=== PATIENT | female | born 1980 | race Caucasian/White ===

== ENCOUNTER → 2016-10-13 | Outpatient (CLI) | payer OTHER ==
[~2016-10-13] MED LIST: IBUP80TA PO; PERCOCET PO
--- NOTE | 2016-10-15 23:54 | ECWPNPC ---
PATIENT NAME: KECIA MASON : 1980 GENDER: FEMALE VISIT DATE: 10/13/2016 DISCHARGE DATE: 10/13/16 1347 VISIT LOCKED DATE TIME: PHYSICIAN: VERNELL GASTELUM RESOURCE: VERNELL GASTELUM REASON FOR APPOINTMENT 1. BACK PAIN HISTORY OF PRESENT ILLNESS FALL RISK SCREENING: SCREENING :NO FALLS IN THE PAST YEAR 35 YEAR OLD FEMALE PATIENT WITH HISTORY OF CHRONIC BACK PAIN. PATIENT DESCRIBES THE PAIN BURNING, SHARP, TENDER, AND HAVING IT ALL TIME WITH A PAIN SCORE OF 6/10. PATIENT STATES THE PAIN ORIGINALLY STARTED IN HER SHINS AND WITHIN THE NEXT TWO YEARS TRAVELLED TO HER LOWER BACK. PATIENT HAS SEEN MULTIPLE SURGEONS, TRIED INJECTIONS, PHYSICAL THERAPY, AND HAS BEEN TO THE [facility]. PATIENT WAS TESTED FOR MS AND WAS TOLD SHE HAS NO LESIONS ON HER BRAIN AT THIS TIME. PATIENT IS CURRENTLY USING TYLENOL TO AID IN PAIN RELIEF WHICH SHE STATES DOES NOT HELP. MRS. MASON STATES THAT DEEP MASSAGES TEMPORARLY RELIEVE THE PAIN. PATIENT DENIES UNEXPLAINABLE WEIGHT LOSS, FEVER, CHILLS, NEW CHANGES ON HER URINARY OR BOWEL CONTROL. PAIN SCREENING: PATIENT HAS A COMPLAINT OF ACUTE OR CHRONIC PAIN YES CURRENT MEDICATIONS TAKING VENTOLIN HFA 108 (90 BASE) MCG/ACT AEROSOL SOLUTION 2 PUFFS NEEDED INHALATION EVERY 4 HRS TAKING ADDERALL XR 30 MG CAPSULE EXTENDED RELEASE 24 HOUR 1 CAPSULE IN THE MORNING ORALLY ONCE A DAY TAKING AMPHETAMINE-DEXTROAMPHET ER 20 MG CAPSULE EXTENDED RELEASE 24 HOUR 1 CAPSULE IN THE MORNING ORALLY ONCE A DAY IN AFTERNOON TAKING TYLENOL EXTRA STRENGTH 500 MG TABLET 2 TABLETS NEEDED ORALLY EVERY 6 HRS NOT-TAKING MULTIVITAMIN TABLET CHEWABLE ORALLY MEDICATION LIST REVIEWED AND RECONCILED WITH THE PATIENT PAST MEDICAL HISTORY ADHD - DIAGNOSED IN [facility] ASTHMA - [facility] BY [facility] GERD BEING FOLLOWED BY NEUROLOGY () FOR MS WORKUP - MRI C-SPINE (11/18) - NO ABNORMALITY. MRI BRAIN WITH AND WITHOUT - NEGATIVE STUDY. LOW BACK PAIN AND HIP PAIN - LUMBAR SPINE MRI (04/18) - NORMAL STUDY - NORMAL EMG-NCV. NEGATIVE INFLAMMATORY AND RHEUMATOID WORKUP. (NO CRP) KIDNEY STONE DDD ALLERGIES N.K.D.A. SURGICAL HISTORY C SECTION X 3 EGD 2011 COLPOSCOPY WITH AVELINO 09/11/14 LUMBAR SPINAL INJECTIONS FAMILY HISTORY FATHER: 57 YRS, DIAGNOSED WITH STROKE, OTHER MOTHER: ALIVE 58 YRS, DIAGNOSED WITH PSYCHIATRIC CONDITIONS, OTHER 1 SON(S) , 2 DAUGHTER(S) . DAD--MS, ANUERSYMMOM--HYPOTHYROID, DEPRESSIONOLDEST DAUGHTER--ASPERGERSSON--AUSTISM. SOCIAL HISTORY GENERAL: TOBACCO USE ARE YOU A:NONSMOKER BMI CARE GOAL FOLLOW-UP ABOVE NORMAL BMI FOLLOW-UPGIVING ENCOURAGEMENT TO EXERCISE, NUTRITION / FEEDING MANAGEMENT, WEIGHT MONITORING ALCOHOL SCREENING DID YOU HAVE A DRINK CONTAINING ALCOHOL IN THE PAST YEAR?YES HOW OFTEN DID YOU HAVE A DRINK CONTAINING ALCOHOL IN THE PAST YEAR?MONTHLY OR LESS (1 POINT) HOW MANY DRINKS DID YOU HAVE ON A TYPICAL DAY WHEN YOU WERE DRINKING IN THE PAST YEAR?1 OR 2 (0 POINTS) HOW OFTEN DID YOU HAVE SIX OR MORE DRINKS ON ONE OCCASION IN THE PAST YEAR?NEVER (0 POINTS) POINTS1 INTERPRETATIONNEGATIVE RECREATIONAL DRUG USE DRUG USE?NO CAFFEINE CAFFEINE USE?NO SEXUAL HX HAD SEX IN THE LAST 12 MONTHS (VAGINAL, ORAL, OR ANAL)?YES WITHMEN ONLY USE PROTECTION?NO HAVE YOU EVER HAD AN STD?NO 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 DIET: REGULAR. EXERCISE: NO REGULAR EXERCISE. MARITAL STATUS: . OTHERS AT HOME: SPOUSE, CHILDREN. PETS: 1 DOG. ORTHODOXY: NO MANDAEISM BELIEFS THAT WOULD IMPACT HEALTH CARE. LANGUAGE: CAMBODIAN. EDUCATION: COLLEGE GRAD. WORKING ON BACHELOR'S DEGREE ORIENTATION TO THE PAIN CLINIC AND PLAN OF CARE PROVIDED AND PATIENT VERBALIZED UNDERSTANDING. . LEARNING BARRIERS / SPECIAL NEEDS BARRIERS TO LEARNING?NO HEARING IMPAIRED?NO VISION IMPAIRED?YES :CORRECTIVE LENSES COGNITIVELY IMPAIRED?NO READINESS TO LEARN?YES LEARNING PREFERENCES?YES :DEMONSTRATION/VERBAL INSTRUCTION LEARNING CAPABILITIES PRESENT?NO EMOTIONAL BARRIERS?YES ADHD COMMENTSDOCUMENTED IN NOTES SECTION> SPECIAL DEVICES?NO PSYCHOLOGICAL HX TREATMENTYES HOW OFTEN AND HOW MUCH? NEEDED PAIN CLINIC PFS, CLERGY, PUBLIC HEALTH REFERRALS PFS REFERRAL NEEDED?NO CLERGY REFERRAL NEEDED?NO PUBLIC HEALTH REFERRAL NEEDED?NO ADVANCED DIRECTIVES HEALTH CARE PROXY?NO PRINTED INFORMATION ON HCP GIVEN TO PATIENT AND EXPLAINED. SHE VERBALIZED UNDERSTANDING POWER OF SALES UTILITY REPRESENTATIVE?NO TRAVEL OUTSIDE US: DENIES. HOUSING: HOUSE, LIVES WITH AND THREE CHILDREN. DOMESTIC VIOLENCE: NONE. HOSPITALIZATION/MAJOR DIAGNOSTIC PROCEDURE CHILDBIRTH X3 PNEUMONIA AGE 18 DEPRESSION 2013 REVIEW OF SYSTEMS CONSTITUTIONAL: ANY CHANGE IN YOUR MEDICAL CONDITION? NO . CHILLS NO . FEVER NO . INFECTION: DO YOU HAVE NEW INFECTIONS? NO . DO YOU HAVE HISTORY OF MRSA? NO . MUSCULOSKELETAL: ANY NEW PATTERNS OF PAIN OR NUMBNESS? NO . SYTEMIC LUPUS NO . GASTROENTEROLOGY: ANY NEW CHANGE IN BOWEL CONTROL? NO . BARRETTS ESOPHAGUS NO . CIRRHOSIS NO . HEPATITIS NO . LIVER FAILURE NO . ACID REFLUX YES . UNEXPLAINED WEIGHT LOSS NO . GENITOURINARY: ANY NEW CHANGE IN BLADDER CONTROL? NO . IS THERE A CHANCE YOU COULD BE ? NO . HEMATOLOGY/LYMPH: DO YOU TAKE ANY BLOOD THINNERS? (FOR EXAMPLE- COUMADIN, PLAVIX, AGGRENOX, PLATEL, PRADAXA, OR XARELTO) NO . WHEN WAS YOUR LAST DOSE? DATE: TIME: . LOW PLATELET COUNT NO . SICKLE CELL DISEASE NO . VON WILLIEBRANDS NO . FACTOR V LEIDEN NO . THALLASEMIA NO . ANEMIA NO . EASY BRUISING NO . NEUROLOGY: HAVE YOU FALLEN IN THE PAST 6 MONTHS? NO . ANY NEW EXTREMITY NUMBNESS OR WEAKNESS? NO . HEAD INJURY NO . DEMENTIA NO . CEREBRAL PALSY NO . MULTIPLE SCLEROSIS NO . DIZZINESS INTERMITTENT, LASTING FOR MINUTES, LIGHTHEADED SENSATION, SENSATION OF IMBALANCE, SENSATION OF ROOM SPINNING . HEADACHE NO . STROKES NO . VERTIGO NO . CARDIOLOGY: DO YOU HAVE A PACEMAKER OR DEFIBRILLATOR? NO . ANGINA NO . HEART ATTACK NO . HEART SURGERY NO . CONGESTIVE HEART FAILURE/FLUID OVERLOAD NO . CHEST PAIN NO . HIGH BLOOD PRESSURE NO . IRREGULAR HEART BEAT NO . RESPIRATORY: HAVE YOU BEEN SICK IN THE PAST WEEK? NO . FEVER NO . FLU LIKE SYMPTOMS? NO . CPAP NO . BYPAP NO . ASTHMA YES . EMPHYSEMA NO . CHRONIC LUNG DISEASES NO . SHORTNESS OF BREATH ON EXERTION NO . COUGH NO . SNORING NO . INTEGUMENTARY: DO YOU HAVE ANY RASHES OR OPEN SORES? NO . ALLERGIC/IMMUNO: ARE YOU ALLERGIC TO SHELLFISH OR IV DYE? NO . ANY NEW ALLERGIES? NO . PSYCHIATRIC: DO YOU HAVE THOUGHTS OF HURTING YOURSELF OR SOMEONE ELSE? NO . ARE YOU ABUSED, NEGLECTED, OR IN AN UNSAFE ENVIRONMENT? NO . ENDOCRINOLOGY: ARE YOU DIABETIC? NO . THYROID DISORDER NO . OTHER: DO YOU NEED ANY PRESCRIPTIONS? NO . IF YES, PLEASE LIST: ____ . ANY NEW PROBLEMS WITH YOUR MEDICATIONS? NO . WHEN DID YOU LAST EAT? ____ . WHEN DID YOU LAST DRINK? ____ . WHAT DID YOU LAST DRINK? ____ . NAME OF PERSON DRIVING YOU HOME? ____ . DO YOU HAVE ANY OTHER QUESTIONS OR CONCERNS YES WOULD LIKE A DIAGNOSIS AND PAIN RELIEF . REVIEWED BY: PROVIDER: VERNELL GASTELUM MD . VITAL SIGNS WT 187 LBS, HT 4'11", BMI 37.77 INDEX, BP 134/74 MM HG, HR 78 /MIN, RR 16 /MIN, TEMP 98.0 F, OXYGEN SAT % 97, NA INITIALS TL 1107, REVIEWED BY: AD, LMP: 09/26/16. EXAMINATION : PATIENT IS ALERT O X 3 AND COOPERATIVE. TENDERNESS IN THE LOWER BACK AND PARASPINAL MUSCLE GROUP. RIGHT LEG IS WEAKER THEN THE LEFT AT EXTENSION AND FLEXION. MRI DONE ON 10/19/15 SHOWS DISC DEGENERATION AT L5-S1. ASSESSMENTS SACROILIITIS, NOT ELSEWHERE CLASSIFIED - M46.1 (PRIMARY) TREATMENT SACROILIITIS, NOT ELSEWHERE CLASSIFIED NOTES: WE DISCUSSED SEVERAL ISSUES WITH MRS. MASON'S PAIN MANAGEMENT CASE. AT THIS TIME THE PATIENT WILL BEGIN TO USE GABAPENTIN 300 MG AT NIGHT TO HELP WITH THE NEUROPATHIC PAIN. PATIENT WAS ADVISED TO STOP THE MEDICATION IF ANY ADVERSE SIDE EFFECTS START. I WOULD ALSO LIKE THE PATIENT TO RECEIVE A RIGHT HIP MRI TO BETTER ASSESS THE PATIENT'S PAIN. AFTER VIEWING WHERE THE PATIENT STATES HER PAIN IS LOCATED I BELIEVE SHE IS A GOOD CANDIDATE FOR A SACROILIAC JOINT BLOCK. PATIENT REPORTS HAVING LUMBAR EPIDURAL'S IN THE PAST BUT DID NOT FIND RELIEF FROM THE INJECTION. WE DISCUSSED THE RISKS, BENEFITS, AND ALTERNATIVES TO THE SACROILIAC JOINT INJECTION AND THE PATIENT WOULD LIKE TO PROCEED. INSTRUCTIONS WERE GIVEN, QUESTIONS WERE ANSWERED, PATIENT REPORTS UNDERSTANDING AND AGREES WITH THE PLAN. I, LINDA MOROCHO, DOCUMENTED THE ABOVE INFORMATION ACTING A SCRIBE FOR DR. GASTELUM. I HAVE REVIEWED THE ABOVE DOCUMENT, WRITTEN BY LINDA SANDERS AND I VERIFY THAT IT IS ACCURATE. DEAR DR. PORTILLO:THANK YOU FOR YOUR KIND REFERRAL OF MRS. MASON. YOU WANT TO DISCUSS HER CASE WITH ME PLEASE CALL ME AT THE PAIN CENTER AT [phone]. SINCERELY,VERNELL GASTELUM, [facility]. OTHERS START GABAPENTIN CAPSULE, 300 MG, 1 CAPSULE, ORALLY FOR PAIN, THREE TIMES A DAY, 30 DAY(S), 90, REFILLS 1 PREVENTIVE MEDICINE PAIN CLINIC TEACHING: PROCEDURE TEACHING REVIEWED PRE-PROCEDURE EDUCATION /PT VERBALIZED UNDERSTANDING AND SIGNED. MEDITATION GABEPENTIN EDUCATION PROVIDED. PROCEDURE CODES FA211 ESTABILISHED PATIENT [facility] FACILITY CHARGE G8427 DOC MEDS VERIFIED W/PT OR RE G7662 PAIN ASSESS POS TOOL F/U PLAN DOC FOLLOW UP SIJ AFTER APPROVAL ELECTRONICALLY SIGNED BY VERNELL GASTELUM MD ON 10/15/2016 AT 07:32 PM EST DISCLAIMER : THIS IS A VISIT SUMMARY EXTRACTED FROM THE [employer] CHART. IT IS NOT A COPY OF THE [email or web address] PROGRESS NOTE. JARRED
== END ==
LOC: M PAIN 11:20
PROVIDERS: ATTEND Anesthesiology
DX: G89.29 Other chronic pain (principal); M46.1 Sacroiliitis, not elsewhere classified; F90.9 Attention-deficit hyperactivity disorder, unspecified type; J45.909 Unspecified asthma, uncomplicated; K21.9 Gastro-esophageal reflux disease without esophagitis; M51.9 Unspecified thoracic, thoracolumbar and lumbosacral intervertebral disc disorder; Z79.899 Other long term (current) drug therapy

== ENCOUNTER → 2016-11-04 | Outpatient (CLI) | payer OTHER ==
[~2016-11-04] MED LIST changes: +BUPIVACAINE HCL 0.25% 30 ML VIAL As Ordered ONE; +ISOVUE-M 300 61% 15ML VIAL (Q9967) As Ordered ONE; +LIDOCAINE 1% MDV 20ML VIAL As Ordered ONE; +LIDOCAINE 1% SDV INJ 30 ML VIAL As Ordered ONE; +TRIAMCINOLONE ACETONIDE SUSP 40 MG/ML VIAL (J3301) As Ordered ONE; +diazePAM 5 MG TAB As Ordered ONE; +oxyCODONE 5MG TAB As Ordered ONE
--- NOTE | 2016-11-05 09:05 | REP ---
Partial SI joint series: Three views. History: SI joint injection for pain. 8 seconds of fluoroscopy time is reported. Findings: A sequence of three fluoroscopically obtained intraprocedural spot radiographs of the right SI joint document needle position and contrast injection associated with SI joint injection procedure. Signed by Gurdeep Davis MD 11/05/2016 02:47 P
--- NOTE | 2016-11-08 23:24 | ECWPNPC ---
PATIENT NAME: KECIA MASON : 1980 GENDER: FEMALE VISIT DATE: 11/04/2016 DISCHARGE DATE: 11/04/16840 VISIT LOCKED DATE TIME: PHYSICIAN: VERNELL GASTELUM RESOURCE: VERNELL GASTELUM REASON FOR APPOINTMENT 1. SIJ HISTORY OF PRESENT ILLNESS HISTORY OF PRESENT ILLNESS: PAIN THE PATIENT DESCRIBES THE PAIN... FALL RISK SCREENING: SCREENING :NO FALLS IN THE PAST YEAR CURRENT MEDICATIONS TAKING VENTOLIN HFA 108 (90 BASE) MCG/ACT AEROSOL SOLUTION 2 PUFFS NEEDED INHALATION EVERY 4 HRS, NOTES: 3-4 DAYS AGO TAKING ADDERALL XR 30 MG CAPSULE EXTENDED RELEASE 24 HOUR 1 CAPSULE IN THE MORNING ORALLY ONCE A DAY, NOTES: 11/04/16@0700 TAKING AMPHETAMINE-DEXTROAMPHET ER 20 MG CAPSULE EXTENDED RELEASE 24 HOUR 1 CAPSULE IN THE MORNING ORALLY ONCE A DAY IN AFTERNOON, NOTES: 1230 TAKING TYLENOL EXTRA STRENGTH 500 MG TABLET 2 TABLETS NEEDED ORALLY EVERY 6 HRS, NOTES: 1 WEEK AGO NOT-TAKING MULTIVITAMIN TABLET CHEWABLE ORALLY DISCONTINUED GABAPENTIN 300 MG CAPSULE 1 CAPSULE ORALLY FOR PAIN THREE TIMES A DAY DISCONTINUED ADDERALL XR 20 MG CAPSULE EXTENDED RELEASE 24 HOUR 1 CAPSULE IN THE MORNING ORALLY ONCE A DAY, NOTES: 11/04/16@1230 MEDICATION LIST REVIEWED AND RECONCILED WITH THE PATIENT PAST MEDICAL HISTORY ADHD - DIAGNOSED IN [facility] ASTHMA - [facility] BY [facility] GERD BEING FOLLOWED BY NEUROLOGY () FOR MS WORKUP - MRI C-SPINE (11/18) - NO ABNORMALITY. MRI BRAIN WITH AND WITHOUT - NEGATIVE STUDY. LOW BACK PAIN AND HIP PAIN - LUMBAR SPINE MRI (04/18) - NORMAL STUDY - NORMAL EMG-NCV. NEGATIVE INFLAMMATORY AND RHEUMATOID WORKUP. (NO CRP) KIDNEY STONE DDD ALLERGIES N.K.D.A. SOCIAL HISTORY GENERAL: TOBACCO USE ARE YOU A:NONSMOKER LEARNING BARRIERS / SPECIAL NEEDS ORIENTED TO PLAN OF CARE: PATIENT, PAIN MANAGEMENT PATIENT, ORIENTED TO PLAN OF CARE: PATIENT, PAIN MANAGEMENT PATIENT. NEW PATIENT PAIN DIARY TODAY'S VISITNOTES FROM 0-10, WHAT LEVEL IS YOUR PAIN TODAY?0 PAIN CLINIC PFS, CLERGY, PUBLIC HEALTH REFERRALS PFS REFERRAL NEEDED?NO CLERGY REFERRAL NEEDED?NO PUBLIC HEALTH REFERRAL NEEDED?NO WAS THE PROVIDER NOTIFIED OF ANY PERTINENT INFO?NO PFS REFERRAL NEEDED?NO CLERGY REFERRAL NEEDED?NO PUBLIC HEALTH REFERRAL NEEDED?NO WAS THE PROVIDER NOTIFIED OF ANY PERTINENT INFO?NO REVIEW OF SYSTEMS CONSTITUTIONAL: ANY CHANGE IN YOUR MEDICAL CONDITION? NO . CHILLS NO . FEVER NO . INFECTION: DO YOU HAVE NEW INFECTIONS? NO . DO YOU HAVE HISTORY OF MRSA? NO . MUSCULOSKELETAL: ANY NEW PATTERNS OF PAIN OR NUMBNESS? NO . GASTROENTEROLOGY: ANY NEW CHANGE IN BOWEL CONTROL? NO . GENITOURINARY: ANY NEW CHANGE IN BLADDER CONTROL? NO . IS THERE A CHANCE YOU COULD BE ? NO . HEMATOLOGY/LYMPH: DO YOU TAKE ANY BLOOD THINNERS? (FOR EXAMPLE- COUMADIN, PLAVIX, AGGRENOX, PLATEL, PRADAXA, OR XARELTO) NO . WHEN WAS YOUR LAST DOSE? DATE: TIME: . NEUROLOGY: HAVE YOU FALLEN IN THE PAST 6 MONTHS? NO . ANY NEW EXTREMITY NUMBNESS OR WEAKNESS? NO . CARDIOLOGY: DO YOU HAVE A PACEMAKER OR DEFIBRILLATOR? NO . RESPIRATORY: HAVE YOU BEEN SICK IN THE PAST WEEK? NO . FEVER NO . FLU LIKE SYMPTOMS? NO . COUGH NO . INTEGUMENTARY: DO YOU HAVE ANY RASHES OR OPEN SORES? NO . ALLERGIC/IMMUNO: ARE YOU ALLERGIC TO SHELLFISH OR IV DYE? NO . ANY NEW ALLERGIES? NO . PSYCHIATRIC: DO YOU HAVE THOUGHTS OF HURTING YOURSELF OR SOMEONE ELSE? NO . ARE YOU ABUSED, NEGLECTED, OR IN AN UNSAFE ENVIRONMENT? NO . ENDOCRINOLOGY: ARE YOU DIABETIC? NO . OTHER: DO YOU NEED ANY PRESCRIPTIONS? NO . IF YES, PLEASE LIST: ____ . ANY NEW PROBLEMS WITH YOUR MEDICATIONS? NO . WHEN DID YOU LAST EAT? ____1000 . WHEN DID YOU LAST DRINK? ____1330 . WHAT DID YOU LAST DRINK? ____CRYSTAL LITE . NAME OF PERSON DRIVING YOU HOME? ____MATT . DO YOU HAVE ANY OTHER QUESTIONS OR CONCERNS NO . REVIEWED BY: PROVIDER: . VITAL SIGNS WT 179 LBS, HT 4'11", BMI 36.15 INDEX, BP 118/73 MM HG, HR 82 /MIN, RR 16 /MIN, TEMP 98.0 F, OXYGEN SAT % 97%, NA INITIALS SC 15:41, REVIEWED BY: VD. ASSESSMENTS SACROILIITIS, NOT ELSEWHERE CLASSIFIED - M46.1 (PRIMARY) PROCEDURES PN SI PRE PROCEDURE DIAGNOSIS SACROILIITIS, SACROILIAC JOINT DYSFUNCTION POST PROCEDURE DIAGNOSIS SACROILIITIS, SACROILIAC JOINT DYSFUNCTION PROCEDURE RIGHT SACROILIAC JOINT BLOCK SURGEON DR. VERNELL GASTELUM FINANCIAL ADMINISTRATIVE ASSISTANT NONE ANESTHESIA LOCAL PRE PROCEDURE NOTE PATIENT WITH HISTORY OF CHRONIC LOW BACK PAIN. I EVALUATED THE PATIENT AND REVIEWED THE CHART. I WENT OVER THE RISKS, ALTERNATIVES, AND BENEFITS ASSOCIATED WITH THIS PROCEDURE. THE PATIENT WOULD LIKE TO PROCEED AND GAVE CONSENT TO PERFORM THE PROCEDURE. THE PATIENT DENIES UNEXPLAINABLE WEIGHT LOSS, FEVER, CHILLS, OR NEW CHANGES IN URINARY OR BOWEL CONTROL DESCRIPTION OF PROCEDURE THE PATIENT WAS BROUGHT TO THE PROCEDURE ROOM AND PLACED IN THE PRONE POSITION. THE LUMBOSACRAL AREA WAS CLEANED WITH CHLORAPREP SOLUTION AND DRAPED ASEPTICALLY. THE PROCEDURE WAS DONE UNDER STERILE CONDITIONS. I CHECKED LATERALITY AND THE LEVEL WHERE THE PROCEDURE WAS GOING TO BE PERFORMED WITH THE PATIENT AND THE SUPPORTING STAFF AT THE MOMENT OF THE TIME OUT IN THE PROCEDURE ROOM. UNDER FLUOROSCOPIC GUIDANCE, TARGET POINT WAS SELECTED AT THE LOWER BORDER OF THE RIGHT SACROILIAC JOINT. TARGET POINT WAS SELECTED AFTER MEDIAL ROTATION AND TILT OF THE MAGNIFIER OF THE C-ARM. LIDOCAINE WAS USED TO NUMB THE SKIN AND SUBCUTANEOUS TISSUE BELOW IT. A SPINAL NEEDLE, 22-GAUGE, WAS ADVANCED UNDER FLUOROSCOPIC GUIDANCE AND FOLLOWING PATIENT FEEDBACK UNTIL THE TARGET AREA WAS TOUCHED. THE POSITION OF THE NEEDLE WAS VERIFIED WITH AP AND LATERAL VIEWS. AFTER PROPER POSITION OF THE NEEDLE WAS ACHIEVED, ISOVUE M DYE 30%, 0.25 ML, WAS INJECTED SHOWING SPREAD OF THE DYE. THEN, A SOLUTION OF 20 MG OF KENALOG WAS INJECTED IN RIGHT JOINT WITH 3 ML OF BUPIVACAINE 0.125%. THERE WAS NO EVIDENCE OF BLOOD, PARESTHESIA OR CEREBROSPINAL FLUID DURING THE PROCEDURE. THE PATIENT WAS SENT TO THE RECOVERY ROOM. THE PATIENT WAS MOVING THE EXTREMITIES AND DOING WELL. THERE WAS NO COMPLICATION DURING THE PROCEDURE. FLUOROSCOPY TIME WAS 8 SECONDS POST PROCEDURE NOTE THE PATIENT WILL BE SEEN IN A FOLLOW UP IN THE NEXT FEW WEEKS. INSTRUCTIONS WERE GIVEN, QUESTIONS WERE ANSWERED, AND THE PATIENT EXPRESSED UNDERSTANDING AND AGREED WITH THE PLAN. INSTRUCTIONS WERE GIVEN, QUESTIONS WERE ANSWERED, PATIENT REPORTS UNDERSTANDING AND AGREES WITH THE PLAN. I, JONATHAN BALDERRAMA, DOCUMENTED THE ABOVE INFORMATION ACTING A SCRIBE FOR DR. GASTELUM. I HAVE REVIEWED THE ABOVE DOCUMENT, WRITTEN BY JONATHAN COOKIBKimmy AND I VERIFY THAT IT IS ACCURATE. DIAGNOSTIC [facility] FLUORO GUIDANCE (PAIN)[id number] PROCEDURE CODES 87791 INJECT SACROILIAC JOINT 6045F RADXPS IN END [id number] PXD DISPOSITION & COMMUNICATION FOLLOW UP 3 WEEKS ELECTRONICALLY SIGNED BY VERNELL GASTELUM MD ON 11/08/2016 AT 04:16 PM EST DISCLAIMER : THIS IS A VISIT SUMMARY EXTRACTED FROM THE [employer] CHART. IT IS NOT A COPY OF THE [employer] PROGRESS NOTE. JARRED
== END ==
LOC: M PAIN 15:40
PROVIDERS: ATTEND Anesthesiology
DX: G89.29 Other chronic pain (principal); M46.1 Sacroiliitis, not elsewhere classified; M12.88 Other specific arthropathies, not elsewhere classified, other specified site; J45.909 Unspecified asthma, uncomplicated; K21.9 Gastro-esophageal reflux disease without esophagitis; F90.9 Attention-deficit hyperactivity disorder, unspecified type; Z79.899 Other long term (current) drug therapy
CPT/HCPCS: G0260; J3301; Q9967

== ENCOUNTER → 2016-11-10 | Outpatient (CLI) | payer OTHER ==
[~2016-11-10] MED LIST changes: -BUPIVACAINE HCL 0.25% 30 ML VIAL As Ordered ONE; -ISOVUE-M 300 61% 15ML VIAL (Q9967) As Ordered ONE; -LIDOCAINE 1% MDV 20ML VIAL As Ordered ONE; -LIDOCAINE 1% SDV INJ 30 ML VIAL As Ordered ONE; -TRIAMCINOLONE ACETONIDE SUSP 40 MG/ML VIAL (J3301) As Ordered ONE; -diazePAM 5 MG TAB As Ordered ONE; -oxyCODONE 5MG TAB As Ordered ONE
--- NOTE | 2016-11-20 02:23 | ECWPNPC ---
PATIENT NAME: KECIA MASON : 1980 GENDER: FEMALE VISIT DATE: 11/10/2016 DISCHARGE DATE: 11/10/16 1236 VISIT LOCKED DATE TIME: PHYSICIAN: MAGGIE MIRELES RESOURCE: MAGGIE MIRELES REASON FOR APPOINTMENT 1. LOW BACK HISTORY OF PRESENT ILLNESS HISTORY OF PRESENT ILLNESS: PAIN THE PATIENT DESCRIBES THE PAIN... FALL RISK SCREENING: SCREENING :NO FALLS IN THE PAST YEAR GENERAL: HERE FOR POST PROC. F/U.HAD RSIJ ON 11-04-16.REPORTS NO IMPROVEMENT AND SOME AGGREVATION IN PAIN.PAIN IS LOCATED IN RIGHT LOW BACK AND RADIATES INTO RIGHT LEG.DESCRIBES PAIN CONSTANT SHARP AND STABBING.REPORTING RIGHT LEG PAIN AND PARATHEIA.PAIN IS AGGREVATED BY PROLONGED SITTING OR STANDING. CURRENT MEDICATIONS TAKING VENTOLIN HFA 108 (90 BASE) MCG/ACT AEROSOL SOLUTION 2 PUFFS NEEDED INHALATION EVERY 4 HRS TAKING ADDERALL XR 30 MG CAPSULE EXTENDED RELEASE 24 HOUR 1 CAPSULE IN THE MORNING ORALLY ONCE A DAY TAKING AMPHETAMINE-DEXTROAMPHET ER 20 MG CAPSULE EXTENDED RELEASE 24 HOUR 1 TAB ORALLY ONCE A DAY IN AFTERNOON TAKING TYLENOL EXTRA STRENGTH 500 MG TABLET 2 TABLETS NEEDED ORALLY EVERY 6 HRS NOT-TAKING MULTIVITAMIN TABLET CHEWABLE ORALLY MEDICATION LIST REVIEWED AND RECONCILED WITH THE PATIENT PAST MEDICAL HISTORY ADHD - DIAGNOSED IN [facility] ASTHMA - FOLLOWED BY [facility] GERD BEING FOLLOWED BY NEUROLOGY () FOR MS WORKUP - MRI C-SPINE (11/18) - NO ABNORMALITY. MRI BRAIN WITH AND WITHOUT - NEGATIVE STUDY. LOW BACK PAIN AND HIP PAIN - LUMBAR SPINE MRI (04/18) - NORMAL STUDY - NORMAL EMG-NCV. NEGATIVE INFLAMMATORY AND RHEUMATOID WORKUP. (NO CRP) KIDNEY STONE DDD ALLERGIES N.K.D.A. SOCIAL HISTORY GENERAL: TOBACCO USE ARE YOU A:NONSMOKER LEARNING BARRIERS / SPECIAL NEEDS ORIENTED TO PLAN OF CARE: PATIENT, PAIN MANAGEMENT PATIENT, ORIENTED TO PLAN OF CARE: PATIENT, PAIN MANAGEMENT PATIENT. NEW PATIENT PAIN DIARY TODAY'S VISITNOTES FROM 0-10, WHAT LEVEL IS YOUR PAIN TODAY?0 PAIN CLINIC PFS, CLERGY, PUBLIC HEALTH REFERRALS PFS REFERRAL NEEDED?NO CLERGY REFERRAL NEEDED?NO PUBLIC HEALTH REFERRAL NEEDED?NO WAS THE PROVIDER NOTIFIED OF ANY PERTINENT INFO?NO PFS REFERRAL NEEDED?NO CLERGY REFERRAL NEEDED?NO PUBLIC HEALTH REFERRAL NEEDED?NO WAS THE PROVIDER NOTIFIED OF ANY PERTINENT INFO?NO REVIEW OF SYSTEMS CONSTITUTIONAL: ANY CHANGE IN YOUR MEDICAL CONDITION? NO . RECENT ILLNESS DENIES . CHILLS NO . FEVER NO . WEIGHT LOSS DENIES . INFECTION: DO YOU HAVE NEW INFECTIONS? NO . DO YOU HAVE HISTORY OF MRSA? NO . MUSCULOSKELETAL: ANY NEW PATTERNS OF PAIN OR NUMBNESS? NO . GASTROENTEROLOGY: ANY NEW CHANGE IN BOWEL CONTROL? NO . GENITOURINARY: ANY NEW CHANGE IN BLADDER CONTROL? NO . IS THERE A CHANCE YOU COULD BE ? NO . HEMATOLOGY/LYMPH: DO YOU TAKE ANY BLOOD THINNERS? (FOR EXAMPLE- COUMADIN, PLAVIX, AGGRENOX, PLATEL, PRADAXA, OR XARELTO) NO . WHEN WAS YOUR LAST DOSE? DATE: TIME: . NEUROLOGY: HAVE YOU FALLEN IN THE PAST 6 MONTHS? NO . ANY NEW EXTREMITY NUMBNESS OR WEAKNESS? NO . CARDIOLOGY: DO YOU HAVE A PACEMAKER OR DEFIBRILLATOR? NO . CHEST PAIN DENIES . SHORTNESS OF BREATH DENIES . RESPIRATORY: HAVE YOU BEEN SICK IN THE PAST WEEK? NO . FEVER NO . FLU LIKE SYMPTOMS? NO . COUGH NO, DENIES . SHORTNESS OF BREATH DENIES . INTEGUMENTARY: DO YOU HAVE ANY RASHES OR OPEN SORES? NO . ALLERGIC/IMMUNO: ARE YOU ALLERGIC TO SHELLFISH OR IV DYE? NO . ANY NEW ALLERGIES? NO . PSYCHIATRIC: DO YOU HAVE THOUGHTS OF HURTING YOURSELF OR SOMEONE ELSE? NO . ARE YOU ABUSED, NEGLECTED, OR IN AN UNSAFE ENVIRONMENT? NO . ENDOCRINOLOGY: ARE YOU DIABETIC? NO . OTHER: DO YOU NEED ANY PRESCRIPTIONS? NO . IF YES, PLEASE LIST: ____ . ANY NEW PROBLEMS WITH YOUR MEDICATIONS? NO . WHEN DID YOU LAST EAT? ____ . WHEN DID YOU LAST DRINK? ____ . WHAT DID YOU LAST DRINK? ____ . NAME OF PERSON DRIVING YOU HOME? ____ . DO YOU HAVE ANY OTHER QUESTIONS OR CONCERNS NO . REVIEWED BY: PROVIDER: MAGGIE GREENFIELD . VITAL SIGNS WT 185.4 LBS, HT 4'11", BMI 37.44 INDEX, BP 137/95 MM HG, HR 91 /MIN, RR 16 /MIN, TEMP 98.5 F, OXYGEN SAT % 98%, NA INITIALS 11:35, REVIEWED BY: CS. EXAMINATION GENERAL EXAMINATION: LUNGS:LUNG SOUNDS ARE CLEAR. HEART:HEART RATE REGULAR. MUSCULOSKELETAL:*, MUSCLE STRENGTH TESTING 5/5 LEFT LE.3/5 RIGHT LE., PALPATION: POSITIVE FOR PAIN OVER L/S SPINE. POSITIVE FOR PAIN OVER L/S PARASPINAL RIGHT. DIAGNOSTIC: . ASSESSMENTS SACROILIAC JOINT PAIN - M53.3 (PRIMARY) MYALGIA - M79.1 TREATMENT SACROILIAC JOINT PAIN START CYMBALTA CAPSULE DELAYED RELEASE PARTICLES, 30 MG, 1 CAPSULE, ORALLY, DAILY, 30 DAY(S), 30 CAPSULE, REFILLS 2 [facility] MRI HIP WITHOUT [id number] 11/10/2016 4:06:19 PM > RIGHT HIP COUSINS,[facility] 11/10/2016 4:09:16 PM > AUTH [id number] 12-25-16 NOTES: CYMBALTA INFORMATION GIVEN. REFERRAL TO:[facility] REASON:ANXIETY/CHRONIC PAIN PROCEDURE CODES FA211 ESTAB[address] [facility] CHARGE DISPOSITION & COMMUNICATION FOLLOW UP 4 WEEKS (REASON: MRI RIGHT HIP) ELECTRONICALLY SIGNED BY GIN VERONICA ON 11/17/2016 AT 11:26 AM EDT DISCLAIMER : THIS IS A VISIT SUMMARY EXTRACTED FROM THE [employer] CHART. IT IS NOT A COPY OF THE [employer] PROGRESS NOTE. JARRED
== END ==
LOC: M PAIN 11:20
PROVIDERS: ATTEND Nurse Practitioner Family
DX: Z09 Encounter for follow-up examination after completed treatment for conditions other than malignant neoplasm (principal); M53.3 Sacrococcygeal disorders, not elsewhere classified; M79.1 Myalgia; F90.2 Attention-deficit hyperactivity disorder, combined type; J45.909 Unspecified asthma, uncomplicated; K21.9 Gastro-esophageal reflux disease without esophagitis; M46.1 Sacroiliitis, not elsewhere classified; Z79.899 Other long term (current) drug therapy

== ENCOUNTER → 2016-11-11 | Outpatient (CLI) | payer OTHER ==
--- NOTE | 2016-11-12 06:17 | REP ---
MRI RIGHT HIP: TECHNIQUE: Coronal T1, STIR through the pelvis, T2 fat sat, right hip all three planes, axial oblique proton density fat sat right hip. The visualized osseous structures demonstrate normal marrow signal. There is no bone marrow edema or occult fracture. There is no evidence of avascular necrosis. I do not see evidence of a labral tear. There is no paralabral cyst. There is no joint effusion. A small amount of fluid is seen along the lateral aspect of the greater trochanter of the proximal right femur. This may indicate mild tendinobursitis. Similar finding is seen along the lateral aspect of the proximal left femur. The visualized intrapelvic structures are unremarkable. IMPRESSION: Mild bilateral tendinobursitis. No evidence of a labral tear. Signed by Kalin Rendon MD 11/12/2016 10:13 A
== END ==
LOC: M RAD 17:53
PROVIDERS: ATTEND Nurse Practitioner Family
DX: M53.3 Sacrococcygeal disorders, not elsewhere classified (principal)

== ENCOUNTER → 2016-12-04 | Outpatient (CLI) | payer OTHER ==
--- NOTE | 2016-12-05 00:22 | ECWPNPC ---
PATIENT NAME: KECIA JACKSON : 1980 GENDER: FEMALE VISIT DATE: 12/04/2016 DISCHARGE DATE: 12/04/16 0000 VISIT LOCKED DATE TIME: PHYSICIAN: MAGGIE MIRELES RESOURCE: MAGGIE MIRELES REASON FOR APPOINTMENT 1. MRI/HIP/BACK HISTORY OF PRESENT ILLNESS HISTORY OF PRESENT ILLNESS: HERE FOR F/U AND MANAGEMENT OF CHRONIC RIGHT LOW BACK PAIN AND RIGHT HIP PAIN.MRI RIGHT HIP IS REVIEWED WITH PATIENT AND SIGNIFICANT OTHER.IT IS SHOWING MILD BILATERAL TENDINOBURSITIS.STARTED ON CYMBALTA 30MG DAILY LAST MOS. AND FINDS IT SOMEWHAT HELPFUL FOR ANXIETY BUT NO RELIEF IN PAIN.PATIENT IS CRYING AND APPEARS AGITATED THROUGHOUT VISIT.STATES SHE HAS BEEN TO MULTIPLE MDS AND SPECIALISTS OVER THE PAST TWO YEARS AND NOONE CAN FIND OUT WHAT IS CAUSING THIS EXCRUCIATING PAIN.HAS TRIALED MULTIPLE MEDICATIONS INCLUDING NSAIDS WITHOUT RELIEF.STATES SHE IS UNABLE TO PARTICIPATE WITH CHILDREN OR DUE TO CHRONIC PAIN.ANY RECOMMENDATIONS I HAVE DISCUSSED TODAY PATIENT FELT WOULD BE INEFFECTIVE.RATING PAIN VAS 6/10. PAIN THE PATIENT DESCRIBES THE PAIN... FALL RISK SCREENING: SCREENING :NO FALLS IN THE PAST YEAR CURRENT MEDICATIONS TAKING VENTOLIN HFA 108 (90 BASE) MCG/ACT AEROSOL SOLUTION 2 PUFFS NEEDED INHALATION EVERY 4 HRS TAKING TYLENOL EXTRA STRENGTH 500 MG TABLET 2 TABLETS NEEDED ORALLY EVERY 6 HRS TAKING CYMBALTA 30 MG CAPSULE DELAYED RELEASE PARTICLES 1 CAPSULE ORALLY DAILY TAKING ADDERALL XR 30 MG CAPSULE EXTENDED RELEASE 24 HOUR 1 CAPSULE IN THE MORNING ORALLY ONCE A DAY TAKING AMPHETAMINE-DEXTROAMPHET ER 20 MG CAPSULE EXTENDED RELEASE 24 HOUR 1 TAB ORALLY ONCE A DAY IN AFTERNOON NOT-TAKING MULTIVITAMIN TABLET CHEWABLE ORALLY MEDICATION LIST REVIEWED AND RECONCILED WITH THE PATIENT PAST MEDICAL HISTORY ADHD - DIAGNOSED IN [facility] - [facility] BY [facility] GERD BEING FOLLOWED BY NEUROLOGY () FOR MS WORKUP - MRI C-SPINE (11/18) - NO ABNORMALITY. MRI BRAIN WITH AND WITHOUT - NEGATIVE STUDY. LOW BACK PAIN AND HIP PAIN - LUMBAR SPINE MRI (04/18) - NORMAL STUDY - NORMAL EMG-NCV. NEGATIVE INFLAMMATORY AND RHEUMATOID WORKUP. (NO CRP) KIDNEY STONE DDD ALLERGIES N.K.D.A. REVIEW OF SYSTEMS CONSTITUTIONAL: ANY CHANGE IN YOUR MEDICAL CONDITION? NO . CHILLS NO . FEVER NO . INFECTION: DO YOU HAVE NEW INFECTIONS? NO . DO YOU HAVE HISTORY OF MRSA? NO . MUSCULOSKELETAL: ANY NEW PATTERNS OF PAIN OR NUMBNESS? YES PT REPORTS INCREASED PAIN AND SPASMS IN LEFT ARM AND ELBOW, STARTING A COUPLE OF MONTHS AGO . GASTROENTEROLOGY: ANY NEW CHANGE IN BOWEL CONTROL? NO . GENITOURINARY: ANY NEW CHANGE IN BLADDER CONTROL? NO . IS THERE A CHANCE YOU COULD BE ? NO . HEMATOLOGY/LYMPH: DO YOU TAKE ANY BLOOD THINNERS? (FOR EXAMPLE- COUMADIN, PLAVIX, AGGRENOX, PLATEL, PRADAXA, OR XARELTO) NO . WHEN WAS YOUR LAST DOSE? DATE: TIME: . NEUROLOGY: HAVE YOU FALLEN IN THE PAST 6 MONTHS? NO . ANY NEW EXTREMITY NUMBNESS OR WEAKNESS? NO . CARDIOLOGY: DO YOU HAVE A PACEMAKER OR DEFIBRILLATOR? NO . RESPIRATORY: HAVE YOU BEEN SICK IN THE PAST WEEK? NO . FEVER NO . FLU LIKE SYMPTOMS? NO . COUGH NO . INTEGUMENTARY: DO YOU HAVE ANY RASHES OR OPEN SORES? NO . ALLERGIC/IMMUNO: ARE YOU ALLERGIC TO SHELLFISH OR IV DYE? NO . ANY NEW ALLERGIES? NO . PSYCHIATRIC: DO YOU HAVE THOUGHTS OF HURTING YOURSELF OR SOMEONE ELSE? NO . ARE YOU ABUSED, NEGLECTED, OR IN AN UNSAFE ENVIRONMENT? NO . ENDOCRINOLOGY: ARE YOU DIABETIC? NO . OTHER: DO YOU NEED ANY PRESCRIPTIONS? NO . IF YES, PLEASE LIST: ____ . ANY NEW PROBLEMS WITH YOUR MEDICATIONS? NO . WHEN DID YOU LAST EAT? ____ . WHEN DID YOU LAST DRINK? ____ . WHAT DID YOU LAST DRINK? ____ . NAME OF PERSON DRIVING YOU HOME? ____ . DO YOU HAVE ANY OTHER QUESTIONS OR CONCERNS NO . REVIEWED BY: PROVIDER: MAGGIE GREENFIELD . VITAL SIGNS WT 178.0 LBS, HT 4'11", BMI 35.95 INDEX, BP 141/69 MM HG, HR 72 /MIN, RR 16 /MIN, TEMP 97.5 F, OXYGEN SAT % 98%, NA INITIALS TL 1035, REVIEWED BY: SHAAN. EXAMINATION GENERAL EXAMINATION: LUNGS:LUNG SOUNDS ARE CLEAR. HEART:HEART RATE REGULAR. MUSCULOSKELETAL:*, MUSCLE STRENGTH TESTING 5/5 LEFT LE.3/5 RIGHT LE., PALPATION: POSITIVE FOR PAIN OVER L/S SPINE. POSITIVE FOR PAIN OVER L/S PARASPINAL RIGHT. DIAGNOSTIC: . ASSESSMENTS SACROILIAC JOINT PAIN - M53.3 (PRIMARY) MYALGIA - M79.1 HIP PAIN, RIGHT - M25.551 TREATMENT SACROILIAC JOINT PAIN REFILL CYMBALTA CAPSULE DELAYED RELEASE PARTICLES, 30 MG, 1 CAPSULE, ORALLY, DAILY, 30 DAY(S), 30 CAPSULE, REFILLS 2 START MELOXICAM TABLET, 15 MG, 1 TABLET, ORALLY, ONCE A DAY, 30 DAY(S), 30, REFILLS 2 [facility] RE[facility]ON:RIGHT HIP TENDONITIS-FAILED CONSERVATIVE CARE AND INJECTIONS DISPOSITION & COMMUNICATION FOLLOW UP 2 MONTHS ELECTRONICALLY SIGNED BY GIN VERONICA ON 12/04/2016 AT 03:01 PM EDT DISCLAIMER : THIS IS A VISIT SUMMARY EXTRACTED FROM THE [employer] CHART. IT IS NOT A COPY OF THE [employer] PROGRESS NOTE. JARRED
== END | disposition home or self-care (01) ==
LOC: M PAIN 10:40
PROVIDERS: ATTEND Nurse Practitioner Family
DX: Z09 Encounter for follow-up examination after completed treatment for conditions other than malignant neoplasm (principal); G89.29 Other chronic pain; M53.3 Sacrococcygeal disorders, not elsewhere classified; M79.1 Myalgia; M25.551 Pain in right hip; J45.909 Unspecified asthma, uncomplicated; K21.9 Gastro-esophageal reflux disease without esophagitis; F90.9 Attention-deficit hyperactivity disorder, unspecified type; Z79.899 Other long term (current) drug therapy

== ENCOUNTER → 2017-02-18 | Outpatient (CLI) | payer OTHER ==
--- NOTE | 2017-02-27 23:59 | ECWPNPC ---
PATIENT NAME: KECIA JACKSON : 1980 GENDER: FEMALE VISIT DATE: 02/18/2017 DISCHARGE DATE: 02/18/17 1551 VISIT LOCKED DATE TIME: PHYSICIAN: VERNELL GASTELUM RESOURCE: VERNELL GASTELUM REASON FOR APPOINTMENT 1. HIP/BACK HISTORY OF PRESENT ILLNESS HISTORY OF PRESENT ILLNESS: PAIN THE PATIENT DESCRIBES THE PAIN... 36 YEAR OLD FEMALE PATIENT WITH HISTORY OF CHRONIC RIGHT LOW BACK PAIN AND RIGHT HIP PAIN. PATIENT DESCRIBES THE PAIN BURNING, TENDER, SORE, SPASMS, AND HAVING IT ALL THE TIME WITH A PAIN SCORE OF 5/10 ON TODAY'S VISIT. PATIENT REPORTS OF PAIN IN THE LOW BACK WITH RADIATING PAIN DOWN THE RIGHT LEG STOPPING ABOVE THE RIGHT KNEE. PATIENT DENIES UNEXPLAINABLE WEIGHT LOSS, FEVER, CHILLS, NEW CHANGES ON HER URINARY OR BOWEL CONTROL. FALL RISK SCREENING: SCREENING :NO FALLS IN THE PAST YEAR CURRENT MEDICATIONS TAKING VENTOLIN HFA 108 (90 BASE) MCG/ACT AEROSOL SOLUTION 2 PUFFS NEEDED INHALATION EVERY 4 HRS TAKING TYLENOL EXTRA STRENGTH 500 MG TABLET 2 TABLETS NEEDED ORALLY EVERY 6 HRS TAKING ADDERALL XR 30 MG CAPSULE EXTENDED RELEASE 24 HOUR 1 CAPSULE IN THE MORNING ORALLY ONCE A DAY TAKING AMPHETAMINE-DEXTROAMPHET ER 20 MG CAPSULE EXTENDED RELEASE 24 HOUR 1 TAB ORALLY ONCE A DAY IN AFTERNOON NOT-TAKING MULTIVITAMIN TABLET CHEWABLE ORALLY DISCONTINUED CYMBALTA 30 MG CAPSULE DELAYED RELEASE PARTICLES 1 CAPSULE ORALLY DAILY DISCONTINUED MELOXICAM 15 MG TABLET 1 TABLET ORALLY ONCE A DAY MEDICATION LIST REVIEWED AND RECONCILED WITH THE PATIENT PAST MEDICAL HISTORY ADHD - DIAGNOSED IN [facility] ASTHMA - FOLLOWED BY [facility] GERD BEING FOLLOWED BY NEUROLOGY () FOR MS WORKUP - MRI C-SPINE (11/18) - NO ABNORMALITY. MRI BRAIN WITH AND WITHOUT - NEGATIVE STUDY. LOW BACK PAIN AND HIP PAIN - LUMBAR SPINE MRI (04/18) - NORMAL STUDY - NORMAL EMG-NCV. NEGATIVE INFLAMMATORY AND RHEUMATOID WORKUP. (NO CRP) KIDNEY STONE DDD ALLERGIES N.K.D.A. SURGICAL HISTORY C SECTION X 3 EGD 2012 COLPOSCOPY WITH AVELINO 09/11/14 LUMBAR SPINAL INJECTIONS FAMILY HISTORY FATHER: 57 YRS, DIAGNOSED WITH STROKE, OTHER MOTHER: ALIVE 58 YRS, DIAGNOSED WITH PSYCHIATRIC CONDITIONS, OTHER 1 SON(S) , 2 DAUGHTER(S) . DAD--MS, ANUERSYMMOM--HYPOTHYROID, DEPRESSIONOLDEST DAUGHTER--ASPERGERSSON--AUSTISM. SOCIAL HISTORY GENERAL: TOBACCO USE ARE YOU A:NONSMOKER BMI CARE GOAL FOLLOW-UP ABOVE NORMAL BMI FOLLOW-UPGIVING ENCOURAGEMENT TO EXERCISE, NUTRITION / FEEDING MANAGEMENT, WEIGHT MONITORING ALCOHOL SCREENING POINTS: 1, INTERPRETATION: NEGATIVE. RECREATIONAL DRUG USE DRUG USE?NO CAFFEINE CAFFEINE USE?NO SEXUAL HX HAD SEX IN THE LAST 12 MONTHS (VAGINAL, ORAL, OR ANAL)?: YES, WITH: MEN ONLY, USE PROTECTION?: NO, HAVE YOU EVER HAD AN STD?: NO. 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 DIET: REGULAR. EXERCISE: NO REGULAR EXERCISE. MARITAL STATUS: . OTHERS AT HOME: SPOUSE, CHILDREN. PETS: 1 DOG. EVANGELICAL NO CATHOLIC BELIEFS THAT WOULD IMPACT HEALTH CARE. LANGUAGE LATVIAN. EDUCATION LEVEL OF EDUCATION:COLLEGE TAKING ONLINE CLASSES NOW, 3, NOT GOING WELL, NOT ABLE TO GET TO THEM DURING THE DAY AND TOO TIRED AT NIGHT. LEARNING BARRIERS / SPECIAL NEEDS CHANGE FROM LAST VISIT?NO BARRIERS TO LEARNING?NO HEARING IMPAIRED?NO VISION IMPAIRED?YES :CORRECTIVE LENSES COGNITIVELY IMPAIRED?NO READINESS TO LEARN?YES LEARNING PREFERENCES?YES :DEMONSTRATION/VERBAL INSTRUCTION LEARNING CAPABILITIES PRESENT?NO EMOTIONAL BARRIERS?YES ADHD COMMENTSDOCUMENTED IN NOTES SECTION> SPECIAL DEVICES?NO VP CARDIOVASCULAR NEEDED?NO PSYCHOLOGICAL HX TREATMENTYES HOW OFTEN AND HOW MUCH? NEEDED PAIN CLINIC PFS, CLERGY, PUBLIC HEALTH REFERRALS PFS REFERRAL NEEDED?NO CLERGY REFERRAL NEEDED?NO PUBLIC HEALTH REFERRAL NEEDED?NO ADVANCE DIRECTIVES HEALTH CARE PROXY?NO PRINTED INFORMATION ON HCP GIVEN TO PATIENT AND EXPLAINED. SHE VERBALIZED UNDERSTANDING POWER OF RESTAURANT ASSISTANT MANAGER?NO TRAVEL OUTSIDE US: DENIES. HOUSING: HOUSE, LIVES WITH AND THREE CHILDREN. DOMESTIC VIOLENCE NONE. HOSPITALIZATION/MAJOR DIAGNOSTIC PROCEDURE CHILDBIRTH X3 PNEUMONIA AGE 18 DEPRESSION 2014 REVIEW OF SYSTEMS REVIEWED BY: PROVIDER: VERNELL GASTELUM MD . CONSTITUTIONAL: ANY CHANGE IN YOUR MEDICAL CONDITION? NO . CHILLS NO . FEVER NO . INFECTION: DO YOU HAVE NEW INFECTIONS? NO . DO YOU HAVE HISTORY OF MRSA? NO . MUSCULOSKELETAL: ANY NEW PATTERNS OF PAIN OR NUMBNESS? YES . GASTROENTEROLOGY: ANY NEW CHANGE IN BOWEL CONTROL? NO . GENITOURINARY: ANY NEW CHANGE IN BLADDER CONTROL? NO . IS THERE A CHANCE YOU COULD BE ? NO . HEMATOLOGY/LYMPH: DO YOU TAKE ANY BLOOD THINNERS? (FOR EXAMPLE- COUMADIN, PLAVIX, AGGRENOX, PLATEL, PRADAXA, OR XARELTO) NO . WHEN WAS YOUR LAST DOSE? DATE: TIME: . NEUROLOGY: HAVE YOU FALLEN IN THE PAST 6 MONTHS? NO . ANY NEW EXTREMITY NUMBNESS OR WEAKNESS? NO . CARDIOLOGY: DO YOU HAVE A PACEMAKER OR DEFIBRILLATOR? NO . RESPIRATORY: HAVE YOU BEEN SICK IN THE PAST WEEK? NO . FEVER NO . FLU LIKE SYMPTOMS? NO . COUGH NO . INTEGUMENTARY: DO YOU HAVE ANY RASHES OR OPEN SORES? NO . ALLERGIC/IMMUNO: ARE YOU ALLERGIC TO SHELLFISH OR IV DYE? NO . ANY NEW ALLERGIES? NO . PSYCHIATRIC: DO YOU HAVE THOUGHTS OF HURTING YOURSELF OR SOMEONE ELSE? NO . ARE YOU ABUSED, NEGLECTED, OR IN AN UNSAFE ENVIRONMENT? NO . ENDOCRINOLOGY: ARE YOU DIABETIC? NO . OTHER: DO YOU NEED ANY PRESCRIPTIONS? NO . IF YES, PLEASE LIST: ____ . ANY NEW PROBLEMS WITH YOUR MEDICATIONS? NO . WHEN DID YOU LAST EAT? ____ . WHEN DID YOU LAST DRINK? ____ . WHAT DID YOU LAST DRINK? ____ . NAME OF PERSON DRIVING YOU HOME? ____ . DO YOU HAVE ANY OTHER QUESTIONS OR CONCERNS NO . VITAL SIGNS WT 189.4 LBS, HT 4'11", BMI 38.25 INDEX, BP 130/78 MM HG, HR 78 /MIN, RR 16 /MIN, TEMP 98.3 F, OXYGEN SAT % 99%, NA INITIALS SC 14:01, REVIEWED BY: KARLI. EXAMINATION : PATIENT IS ALERT O X 3 AND COOPERATIVE. THERE IS TENDERNESS IN THE LOW BACK. ASSESSMENTS INTERVERTEBRAL DISC DISORDERS WITH RADICULOPATHY, LUMBAR REGION - M51.16 (PRIMARY) INTERVERTEBRAL DISC DISORDERS WITH RADICULOPATHY, LUMBOSACRAL REGION - M51.17 TREATMENT INTERVERTEBRAL DISC DISORDERS WITH RADICULOPATHY, LUMBAR REGION NOTES: WE DISCUSSED SEVERAL ISSUES WITH [facility] PAIN MANAGEMENT CASE. AT THIS TIME I WILL HAVE THE PATIENT START ON GABAPENTIN FOR THE NEUROPATHIC PAIN. AFTER EXAMINING THE PATIENT SHE IS A GOOD CANDIDATE FOR A LESI. PATIENT EXPRESSED THAT SHE IS VERY NERVOUS ABOUT THE INJECTION DUE OT THE PAIN AND ANXIETY THIS PROCEDURE WILL CAUSE HER. WE DISCUSSED THE RISK, BENEFITS, AND ALTERNATIVES AND THE PATIENT WOULD LIKE TO PROCEED WITH IV SEDATION. PATIENT WILL BE BOOKED PENDING APPROVAL. INSTRUCTIONS WERE GIVEN, QUESTIONS WERE ANSWERED, PATIENT REPORTS UNDERSTANDING AND AGREES WITH THE PLAN. I, JONATHAN BALDERRAMA, DOCUMENTED THE ABOVE INFORMATION ACTING A SCRIBE FOR DR. GASTELUM. I HAVE REVIEWED THE ABOVE DOCUMENT, WRITTEN BY JONATHAN BALDERRAMA SCRIBE AND I VERIFY THAT IT IS ACCURATE. OTHERS START GABAPENTIN CAPSULE, 300 MG, 1 CAPSULE, ORALLY, THREE TIMES A DAY FOR PAIN MDD3, 30 DAY(S), 90, REFILLS 1 NOTES: LUMBAR EPIDURAL INJECTION: YOUR PROCEDURE MATERIAL WAS PRINTED,WHAT IS LUMBAR EPIDURAL INJECTION? MATERIAL WAS PRINTED,WHAT IS LUMBAR EPIDURAL INJECTION? MATERIAL WAS PRINTED. DIAGNOSTIC IMAGING [facility] FLUORO GUIDE SPINE INJECTION (PAIN)[id number] PROCEDURE CODES FA211 ESTABILISHED PATIENT [facility] FACILITY CHARGE G8730 PAIN ASSESS POS TOOL F/U PLAN DOC G8427 DOC MEDS VERIFIED W/PT OR RE DISPOSITION & COMMUNICATION FOLLOW UP LESI PENDING APPROVAL ELECTRONICALLY SIGNED BY VERNELL GASTELUM MD ON 02/27/2017 AT 08:17 AM EDT DISCLAIMER : THIS IS A VISIT SUMMARY EXTRACTED FROM THE [email or web address] CHART. IT IS NOT A COPY OF THE [email or web address] PROGRESS NOTE. BOLIVARD
== END ==
LOC: M PAIN 14:00
PROVIDERS: ATTEND Anesthesiology
DX: M51.16 Intervertebral disc disorders with radiculopathy, lumbar region (principal); M51.17 Intervertebral disc disorders with radiculopathy, lumbosacral region; M54.5 Low back pain; M25.551 Pain in right hip; G89.29 Other chronic pain; Z79.899 Other long term (current) drug therapy

== ENCOUNTER → 2017-02-20 | Outpatient (CLI) | payer OTHER ==
[~2017-02-20] MED LIST changes: +ISOVUE-M 300 61% 15ML VIAL (Q9967) As Ordered ONE; +LIDOCAINE 1% SDV INJ 30 ML VIAL As Ordered ONE; +MIDAZOLAM INJ 2 MG/2 ML VIAL (J2250) As Ordered ONE; +fentaNYL 100 MCG/2 ML INJECTION (J3010) As Ordered ONE; +methylPREDNISolone SUSP 40 MG/ML (DEPO-medrol) VIAL (J1030) As Ordered ONE
--- NOTE | 2017-02-20 15:49 | REP ---
FLUOROSCOPIC GUIDED SPINAL INJECTION: The films were reviewed with Dr. Rendon. The patient has a history of back pain. The portable C-arm was provided in the OR for Dr. Sheehan for fluoroscopic guidance. Three intraoperative fluoroscopic spot films were obtained for needle placement verification for lumbar epidural injection. The films are on the PACs system and are available for review. 9 seconds of fluoroscopic time was utilized for this procedure. Reviewed by GARRET Morel 02/20/2017 04:09 PEdited and Signed by Kalin Rendon MD 02/20/2017 05:29 P
--- NOTE | 2017-02-26 23:39 | ECWPNPC ---
PATIENT NAME: KECIA JACKSON : 1980 GENDER: FEMALE VISIT DATE: 02/20/2017 DISCHARGE DATE: 02/20/17 1125 VISIT LOCKED DATE TIME: PHYSICIAN: VERNELL GASTELUM RESOURCE: VERNELL GASTELUM REASON FOR APPOINTMENT 1. LESI WITH IV SEDATION HISTORY OF PRESENT ILLNESS HISTORY OF PRESENT ILLNESS: PAIN THE PATIENT DESCRIBES THE PAIN... FALL RISK SCREENING: SCREENING :NO FALLS IN THE PAST YEAR CURRENT MEDICATIONS TAKING VENTOLIN HFA 108 (90 BASE) MCG/ACT AEROSOL SOLUTION 2 PUFFS NEEDED INHALATION EVERY 4 HRS, NOTES: 1-2 MONTHS AGO TAKING TYLENOL EXTRA STRENGTH 500 MG TABLET 2 TABLETS NEEDED ORALLY EVERY 6 HRS, NOTES: 4 DAYS AGO TAKING ADDERALL XR 30 MG CAPSULE EXTENDED RELEASE 24 HOUR 1 CAPSULE IN THE MORNING ORALLY ONCE A DAY, NOTES: 0645 TAKING AMPHETAMINE-DEXTROAMPHET ER 20 MG CAPSULE EXTENDED RELEASE 24 HOUR 1 TAB ORALLY ONCE A DAY IN AFTERNOON, NOTES: 02/19/17@1200 TAKING GABAPENTIN 300 MG CAPSULE 1 CAPSULE ORALLY THREE TIMES A DAY FOR PAIN MDD3, NOTES: 02/19/17@2100 NOT-TAKING MULTIVITAMIN TABLET CHEWABLE ORALLY MEDICATION LIST REVIEWED AND RECONCILED WITH THE PATIENT PAST MEDICAL HISTORY ADHD - DIAGNOSED IN [facility] - [facility] BY [facility] GERD BEING FOLLOWED BY NEUROLOGY () FOR MS WORKUP - MRI C-SPINE (11/18) - NO ABNORMALITY. MRI BRAIN WITH AND WITHOUT - NEGATIVE STUDY. LOW BACK PAIN AND HIP PAIN - LUMBAR SPINE MRI (04/18) - NORMAL STUDY - NORMAL EMG-NCV. NEGATIVE INFLAMMATORY AND RHEUMATOID WORKUP. (NO CRP) KIDNEY STONE DDD ALLERGIES N.K.D.A. REVIEW OF SYSTEMS REVIEWED BY: PROVIDER: . CONSTITUTIONAL: ANY CHANGE IN YOUR MEDICAL CONDITION? NO . CHILLS NO . FEVER NO . INFECTION: DO YOU HAVE NEW INFECTIONS? NO . DO YOU HAVE HISTORY OF MRSA? NO . MUSCULOSKELETAL: ANY NEW PATTERNS OF PAIN OR NUMBNESS? YES . GASTROENTEROLOGY: ANY NEW CHANGE IN BOWEL CONTROL? NO . GENITOURINARY: ANY NEW CHANGE IN BLADDER CONTROL? NO . IS THERE A CHANCE YOU COULD BE ? NO . HEMATOLOGY/LYMPH: DO YOU TAKE ANY BLOOD THINNERS? (FOR EXAMPLE- COUMADIN, PLAVIX, AGGRENOX, PLATEL, PRADAXA, OR XARELTO) NO . WHEN WAS YOUR LAST DOSE? DATE: TIME: . NEUROLOGY: HAVE YOU FALLEN IN THE PAST 6 MONTHS? NO . ANY NEW EXTREMITY NUMBNESS OR WEAKNESS? NO . CARDIOLOGY: DO YOU HAVE A PACEMAKER OR DEFIBRILLATOR? NO . RESPIRATORY: HAVE YOU BEEN SICK IN THE PAST WEEK? NO . FEVER NO . FLU LIKE SYMPTOMS? NO . COUGH NO . INTEGUMENTARY: DO YOU HAVE ANY RASHES OR OPEN SORES? NO . ALLERGIC/IMMUNO: ARE YOU ALLERGIC TO SHELLFISH OR IV DYE? NO . ANY NEW ALLERGIES? NO . PSYCHIATRIC: DO YOU HAVE THOUGHTS OF HURTING YOURSELF OR SOMEONE ELSE? NO . ARE YOU ABUSED, NEGLECTED, OR IN AN UNSAFE ENVIRONMENT? NO . ENDOCRINOLOGY: ARE YOU DIABETIC? NO . OTHER: DO YOU NEED ANY PRESCRIPTIONS? NO . IF YES, PLEASE LIST: ____ . ANY NEW PROBLEMS WITH YOUR MEDICATIONS? NO . WHEN DID YOU LAST EAT? ____02/19/17 . WHEN DID YOU LAST DRINK? ____07 . WHAT DID YOU LAST DRINK? ____WATER . NAME OF PERSON DRIVING YOU HOME? ____MATT . DO YOU HAVE ANY OTHER QUESTIONS OR CONCERNS NO . VITAL SIGNS WT 183 LBS, HT 4'11", BMI 36.96 INDEX, BP 121/56 MM HG, HR 70 /MIN, RR 16 /MIN, TEMP 98.8 F, OXYGEN SAT % 97%, NA INITIALS AW 0946, REVIEWED BY: VD. ASSESSMENTS INTERVERTEBRAL DISC DISORDERS WITH RADICULOPATHY, LUMBAR REGION - M51.16 (PRIMARY) PROCEDURES PRE PROCEDURE DIAGNOSIS LUMBOSACRAL DISC DISORDER WITH RADICULOPATHY POST PROCEDURE DIAGNOSIS LUMBOSACRAL DISC DISORDER WITH RADICULOPATHY PROCEDURE LUMBAR EPIDURAL STEROID INJECTION UNDER FLUOROSCOPIC GUIDANCE SURGEON DR. VERNELL GASTELUM COMMERCIAL LOAN UNDERWRITER NONE ANESTHESIA LOCAL WITH IV SEDATION PRE PROCEDURE NOTE THE PATIENT HAS A HISTORY OF CHRONIC LOW BACK PAIN. I EVALUATE THE PATIENT AND REVIEWED THE CHART. I WENT OVER THE RISKS, ALTERNATIVES, AND BENEFITS ASSOCIATED WITH THIS PROCEDURE. THE PATIENT WOULD LIKE TO PROCEED AND GIVE CONSENT TO PERFORMED THE PROCEDURE. PATIENT WOULD LIKE TO MOVE FORWARD WITH IV SEDATION DUE TO DISCOMFORT, PAIN AND ANXIETY ASSOCIATED WITH THE PROCEDURE. THE PATIENT DENIES UNEXPLAINABLE WEIGHT LOSS, FEVER, CHILLS, OR NEW CHANGES IN URINARY OR BOWEL CONTROL. DESCRIPTION OF PROCEDURE THE PATIENT WAS BROUGHT TO THE PROCEDURE ROOM AND PLACED IN THE PRONE POSITION. THE LUMBOSACRAL AREA WAS CLEANED WITH BETADINE SOLUTION AND DRAPED ASEPTICALLY. THE PROCEDURE WAS DONE UNDER STERILE CONDITIONS. I CHECKED LATERALITY AND THE LEVEL WHERE THE PROCEDURE WAS GOING TO BE PERFORMED WITH THE PATIENT AND THE SUPPORTING STAFF AT THE MOMENT OF THE TIME OUT IN THE PROCEDURE ROOM. UNDER FLUOROSCOPIC GUIDANCE, THE TARGET POINT WAS SELECTED AT THE INTERLAMINAR LEVEL OF L5-S1. LIDOCAINE WAS USED TO NUMB THE SKIN AND THE SUBCUTANEOUS TISSUE BELOW IT. EPIDURAL TUOHY NEEDLE, 17-GAUGE, WAS ADVANCED UNDER FLUOROSCOPIC GUIDANCE AND FOLLOWING PATIENT FEEDBACK UNTIL THE EPIDURAL SPACE WAS REACHED, 7 CM DEEP INTO THE SKIN BY THE LOSS OF RESISTANCE TECHNIQUE. ISOVUE M DYE 30%, 0.25 ML, WAS INJECTED SHOWING ADEQUATE SPREAD OF THE DYE. THEN, A SOLUTION OF 3 ML OF NORMAL SALINE WITH DEPO-MEDROL 60 MG WAS INJECTED SLOWLY FOLLOWING PATIENT FEEDBACK. PATIENT RECEIVED VERSED 2 MG AND FENTANYL 2 MG DIVIDED DOSES V1 THERE WAS NO EVIDENCE OF BLOOD, PARESTHESIA OR CEREBROSPINAL FLUID DURING THE PROCEDURE. THE PATIENT WAS SENT TO THE RECOVERY ROOM. THE PATIENT WAS MOVING THE EXTREMITIES AND DOING WELL. THERE WAS NO COMPLICATION DURING THE PROCEDURE. FLUOROSCOPY TIME WAS 9 SECONDS. FACE TO FACE TIME WAS 13 MINUTES. POST PROCEDURE NOTE THE PATIENT WILL BE SEEN IN A FOLLOW UP IN THE NEXT FEW WEEKS. INSTRUCTIONS WERE GIVEN, QUESTIONS WERE ANSWERED, AND THE PATIENT EXPRESSED UNDERSTANDING AND AGREES WITH THE PLAN. I, LINDA MOROCHO, DOCUMENTED THE ABOVE INFORMATION ACTING A SCRIBE FOR DR. GASTELUM. I HAVE REVIEWED THE ABOVE DOCUMENT, WRITTEN BY LINDA SANDERS AND I VERIFY THAT IT IS ACCURATE PREVENTIVE MEDICINE PAIN CLINIC TEACHING: PROCEDURE TEACHING POST PROCEDURE INSTRUCTIONS REVIEWED WITH PT. VERBALIZED UNDERSTANDING.. PROCEDURE CODES 94695 LUMBAR/SACRAL W/ IMAGING 6045F RADXPS IN END [id number] PXD [id number] MOD SED SAME PHYS/QHP 5/>YRS DISPOSITION & COMMUNICATION FOLLOW UP 3 WEEKS ELECTRONICALLY SIGNED BY VERNELL GASTELUM MD ON 02/26/2017 AT 10:55 AM EDT DISCLAIMER : THIS IS A VISIT SUMMARY EXTRACTED FROM THE [employer] CHART. IT IS NOT A COPY OF THE [employer] PROGRESS NOTE. MTDD
== END ==
LOC: M PAIN 09:00
PROVIDERS: ATTEND Anesthesiology
DX: G89.29 Other chronic pain (principal); M54.5 Low back pain; M51.16 Intervertebral disc disorders with radiculopathy, lumbar region; Z79.899 Other long term (current) drug therapy

== ENCOUNTER → 2017-06-02 | Outpatient (CLI) | payer OTHER ==
[~2017-06-02] MED LIST changes: -ISOVUE-M 300 61% 15ML VIAL (Q9967) As Ordered ONE; -LIDOCAINE 1% SDV INJ 30 ML VIAL As Ordered ONE; -MIDAZOLAM INJ 2 MG/2 ML VIAL (J2250) As Ordered ONE; -fentaNYL 100 MCG/2 ML INJECTION (J3010) As Ordered ONE; -methylPREDNISolone SUSP 40 MG/ML (DEPO-medrol) VIAL (J1030) As Ordered ONE
--- NOTE | 2017-06-29 00:05 | ECWPNPC ---
PATIENT NAME: KECIA JACKSON : 1980 GENDER: FEMALE VISIT DATE: 06/02/2017 DISCHARGE DATE: 06/02/17 1052 VISIT LOCKED DATE TIME: PHYSICIAN: DUSTIN PARKER RESOURCE: DUSTIN PARKER REASON FOR APPOINTMENT 1. BACK AND HIP HISTORY OF PRESENT ILLNESS HISTORY OF PRESENT ILLNESS: PAIN THE PATIENT DESCRIBES THE PAIN... FALL RISK SCREENING: SCREENING :NO FALLS IN THE PAST YEAR TODAY'S VISIT: NOTES: [id number] FOR LOW BACK PAIN. IS S/P LESI COMPLETED ON 02/20/17.NOTES PAIN LEVEL PRIOR TO PROCEDURE 5/10, AND MINIMAL IMPROVEMENT AFTER THE PROCEDURE. -PAIN VARIED BETWEEN 3-5/10. WAS SEEN AT [facility] FOR SURGICAL EVAL OF HER HIP IN [place]. THEY HAD HER SEEN BY THE BACK SURGEON. RATES PAINBAS 5/10. NOTES A SENSE OF STIFFNESS IN ARMS AND LEGS LATER IN THE DAY AFTER ACTIVITY OR STANDING. HAS A SENSE OF WEAKNESS IN RIGHT LEG AND IN LEFT HAND. NOTES A SENSE OF NUMBNESS IN TOES AND FINGERS. . CURRENT MEDICATIONS TAKING VENTOLIN HFA 108 (90 BASE) MCG/ACT AEROSOL SOLUTION 2 PUFFS NEEDED INHALATION EVERY 4 HRS, NOTES: 1-2 MONTHS AGO TAKING TYLENOL EXTRA STRENGTH 500 MG TABLET 2 TABLETS NEEDED ORALLY EVERY 6 HRS, NOTES: 4 DAYS AGO TAKING AMPHETAMINE-DEXTROAMPHET ER 20 MG CAPSULE EXTENDED RELEASE 24 HOUR 1 TAB ORALLY ONCE A DAY IN AFTERNOON TAKING ADDERALL XR 30 MG CAPSULE EXTENDED RELEASE 24 HOUR 1 CAPSULE IN THE MORNING ORALLY ONCE A DAY NOT-TAKING GABAPENTIN 300 MG CAPSULE 1 CAPSULE ORALLY THREE TIMES A DAY FOR PAIN MDD3, NOTES: 02/19/17@2100 NOT-TAKING MULTIVITAMIN TABLET CHEWABLE ORALLY MEDICATION LIST REVIEWED AND RECONCILED WITH THE PATIENT PAST MEDICAL HISTORY ADHD - DIAGNOSED IN [facility] ASTHMA - [facility] BY [facility] GERD BEING FOLLOWED BY NEUROLOGY () FOR MS WORKUP - MRI C-SPINE (11/18) - NO ABNORMALITY. MRI BRAIN WITH AND WITHOUT - NEGATIVE STUDY. LOW BACK PAIN AND HIP PAIN - LUMBAR SPINE MRI (04/18) - NORMAL STUDY - NORMAL EMG-NCV. NEGATIVE INFLAMMATORY AND RHEUMATOID WORKUP. (NO CRP) KIDNEY STONE DDD ALLERGIES NSAIDS: GIBLEED/ULCER: CONTRAINDICATION REVIEW OF SYSTEMS REVIEWED BY: PROVIDER: DUSTIN PARKER [employer] CLERK . CONSTITUTIONAL: ANY CHANGE IN YOUR MEDICAL CONDITION? NO . CHILLS NO . FEVER NO . INFECTION: DO YOU HAVE NEW INFECTIONS? NO . DO YOU HAVE HISTORY OF MRSA? NO . MUSCULOSKELETAL: ANY NEW PATTERNS OF PAIN OR NUMBNESS? YES INCREASE PAIN IN ELBOW . GASTROENTEROLOGY: ANY NEW CHANGE IN BOWEL CONTROL? NO . GENITOURINARY: ANY NEW CHANGE IN BLADDER CONTROL? NO . IS THERE A CHANCE YOU COULD BE ? NO . HEMATOLOGY/LYMPH: DO YOU TAKE ANY BLOOD THINNERS? (FOR EXAMPLE- COUMADIN, PLAVIX, AGGRENOX, PLATEL, PRADAXA, OR XARELTO) NO . WHEN WAS YOUR LAST DOSE? DATE: TIME: . NEUROLOGY: HAVE YOU FALLEN IN THE PAST 6 MONTHS? NO . ANY NEW EXTREMITY NUMBNESS OR WEAKNESS? NO . CARDIOLOGY: DO YOU HAVE A PACEMAKER OR DEFIBRILLATOR? NO . RESPIRATORY: HAVE YOU BEEN SICK IN THE PAST WEEK? NO . FEVER NO . FLU LIKE SYMPTOMS? NO . COUGH NO . INTEGUMENTARY: DO YOU HAVE ANY RASHES OR OPEN SORES? NO . ALLERGIC/IMMUNO: ARE YOU ALLERGIC TO SHELLFISH OR IV DYE? NO . ANY NEW ALLERGIES? NO . PSYCHIATRIC: DO YOU HAVE THOUGHTS OF HURTING YOURSELF OR SOMEONE ELSE? NO . ARE YOU ABUSED, NEGLECTED, OR IN AN UNSAFE ENVIRONMENT? NO . ENDOCRINOLOGY: ARE YOU DIABETIC? NO . OTHER: DO YOU NEED ANY PRESCRIPTIONS? NO . IF YES, PLEASE LIST: ____ . ANY NEW PROBLEMS WITH YOUR MEDICATIONS? NO . WHEN DID YOU LAST EAT? ____ . WHEN DID YOU LAST DRINK? ____ . WHAT DID YOU LAST DRINK? ____ . NAME OF PERSON DRIVING YOU HOME? ____ . DO YOU HAVE ANY OTHER QUESTIONS OR CONCERNS NO . VITAL SIGNS WT 189.4 LBS, HT 4'11", BMI 38.25 INDEX, BP 136/69 MM HG, HR 70 /MIN, RR 16 /MIN, TEMP 98.0 F, OXYGEN SAT % 99%, NA INITIALS AW 0958. EXAMINATION GENERAL EXAMINATION: PSYCHALERT , ORIENTED X 3 , APPROPRIATE MOOD AND AFFECT . LUNGS:CLEAR TO AUSCULTATION BILATERALLY. HEART:HEART RATE REGULAR. MUSCULOSKELETAL:MUSCLE STRENGTH TESTING 5/5 BILATERAL UPPER AND LOWER EXTREMITIES. POINT TENDERNESS OVER LEFT CERVICAL-THORACIC JUNCTION. DECREASED ROM WITH NECK FLEXION AND ROTATION. TENDER POINTS ALSO NOTED BILATERALLY OVER THE SACRUM AND TROCANTERIC REGIONS. NEUROLOGIC EXAM:CN'S II-XII GROSSLY INTACT. TENDER OVER LEFT ULNAR AND WRIST. . ASSESSMENTS CERVICALGIA - M54.2 (PRIMARY) SACROILIITIS - M46.1 GENERALIZED PAIN - R52 MYALGIA - M79.1 TREATMENT CERVICALGIA START TIZANIDINE HCL TABLET, 2 MG, 1 TABLET NEEDED, ORALLY, THREE TIMES A DAY, 30 DAY(S), 90 TABLET, REFILLS 1 LAB: CBC WITH DIFFERENTIAL WBC 8.4 (4.0-10.0 - 10) RBC 5.12 (4.00-5.40 - 10) HEMOGLOBIN 15.0 (12.0-16.0 - G/DL) HEMATOCRIT 46.9 (36.0-47.0 - %) MCV 91.6 (80.0-96.0 - FL) MCH 29.3 (27.0-33.0 - PG) MCHC 32.0 (32.0-36.5 - G/DL) RDW 12.5 (11.5-14.5 - %) PLATELET COUNT 385 (150-450 - 10) LYMPH % 30.1 (24.0-44.0 - %) MONO % 7.8 (0.0-5.0 - %) NEUT % 58.9 (36.0-66.0 - %) EOS % 2.6 (0.0-3.0 - %) BASO % 0.2 (0.0-1.0 - %) NEUT # 5.0 (1.8-7.7 - 10) LYMPH # 2.5 (1.5-4.5 - 10) MONO # 0.7 (0.0-0.8 - 10) EOS # 0.2 (0.0-0.50 - 10) BASO # 0.0 (0.0-0.2 - 10) LAB: COMPREHENSIVE METABOLIC PROFILE GLUCOSE 80 (70-105 - MG/DL) BUN 7 (7-18 - MG/DL) CREATININE 0.65 (0.55-1.02 - MG/DL) GLOMERULAR FILTRATION RATE > 60.0 (>60 - ) SODIUM 138 (136-145 - MEQ/L) POTASSIUM 4.2 (3.5-5.1 - MEQ/L) CHLORIDE 103 (98-107 - MEQ/L) CARBON DIOXIDE 28 (21-32 - MEQ/L) CALCIUM 9.5 (8.5-10.1 - MG/DL) AST/SGOT 15 (15-37 - U/L) ALT/SGPT 24 (12-78 - U/L) ALK PHOS 100 (45-117 - U/L) BILIRUBIN,TOTAL 0.5 (0.2-1.0 - MG/DL) TOTAL PROTEIN 7.5 (6.4-8.2 - GM/DL) ALBUMIN 3.7 (3.2-5.2 - GM/DL) ALB/GLOB RATIO 0.97 (1.00-1.93 - ) LAB: ERYTHROCYTE SEDIMENTATION RATE SED RATE 9 (0-20 - MM/HR) LAB: LUPUS TYPE ANTICOAGULANT SCREE PTT-LA 1.0 (0-1.2 - ) LAB: LYME DISEASE SCRN WITH CONFIRM LYME IGG/IGM AB <0.91 (0.00-0.90 - ISR) LYME AB IGM QUANT <0.80 (0.00-0.79 - INDEX) LAB: RHEUMATOID FACTOR QUANT RHEUMATOID FACTOR QUANT < 10.0 (0-15.0 - IU/ML) LAB: THYROID PROFILE T UPTAKE 33 (30-39 - %) THYROXINE (T4) 11.5 (4.5-12.0 - UG/DL) FTI 3.8 (1.3-4.8 - %) TSH ULTRASENSITIVE 1.940 (0.358-3.740 - UIU/ML) LAB: NILAM TITER & PATTERN ANATP1 NEGATIVE (. - ) INJECTION ANESTHETIC SACROILIAC JOINTDUSTIN PARKER 06/02/2017 10:39:33 AM > BILATERAL NOTES: KEEP MOVING. PROCEDURE CODES FA211 ESTABILISHED PATIENT [facility] FACILITY CHARGE DISPOSITION & COMMUNICATION FOLLOW UP 1 MONTH (REASON: BACK PAIN/GENERALIZED PAIN) ELECTRONICALLY SIGNED BY AMANDA DO ON 06/28/2017 AT 07:36 PM EDT DISCLAIMER : THIS IS A VISIT SUMMARY EXTRACTED FROM THE [email or web address] CHART. IT IS NOT A COPY OF THE [employer] PROGRESS NOTE. JARRED
== END ==
LOC: M PAIN 09:30
PROVIDERS: ATTEND Nurse Practitioner Family
DX: G89.29 Other chronic pain (principal); M54.2 Cervicalgia; M46.1 Sacroiliitis, not elsewhere classified; M79.1 Myalgia; F90.2 Attention-deficit hyperactivity disorder, combined type; E66.01 Morbid (severe) obesity due to excess calories; Z68.38 Body mass index [BMI] 38.0-38.9, adult; Z88.6 Allergy status to analgesic agent; Z79.899 Other long term (current) drug therapy

== ENCOUNTER → 2017-06-09 | Outpatient (CLI) | payer OTHER ==
[2017-06-09 17:40] LABS: ALBUMIN 3.7 GM/DL (3.2-5.2); ALBUMIN/GLOBULIN RATIO 0.97 (1.00-1.93); ALKALINE PHOSPHATASE 100 U/L (45-117); ALT/SGPT 24 U/L (12-78); ANION GAP 7 MEQ/L (8-16); AST/SGOT 15 U/L (15-37); BILIRUBIN,TOTAL 0.5 MG/DL (0.2-1.0); BLOOD UREA NITROGEN 7 MG/DL (7-18); CALCIUM LEVEL 9.5 MG/DL (8.5-10.1); CARBON DIOXIDE LEVEL 28 MEQ/L (21-32); CHLORIDE LEVEL 103 MEQ/L (98-107); CREATININE FOR GFR 0.65 MG/DL (0.55-1.02); GLOMERULAR FILTRATION RATE > 60.0 (>60); GLUCOSE, FASTING 80 MG/DL (70-105); POTASSIUM SERUM 4.2 MEQ/L (3.5-5.1); SODIUM LEVEL 138 MEQ/L (136-145); T UPTAKE 33 % (30-39); THYROXINE (T4) 11.5 UG/DL (4.5-12.0); TOTAL PROTEIN 7.5 GM/DL (6.4-8.2)
[2017-06-09 20:11] LABS: BASO % 0.2 % (0.0-1.0); EOS # 0.2 10^3/uL (0.0-0.50); EOS % 2.6 % (0.0-3.0); IMMATURE GRANULOCYTE % 0.4 % (0-0); LYMPH # 2.5 10^3/uL (1.5-4.5); LYMPH % 30.1 % (24.0-44.0); MEAN CORPUSCULAR HEMOGLOBIN 29.3 pg (27.0-33.0); MEAN CORPUSCULAR VOLUME 91.6 fl (80.0-96.0); MONO # 0.7 10^3/uL (0.0-0.8); MONO % 7.8 % (0.0-5.0); NEUTROPHILS % 58.9 % (36.0-66.0); PLATELET COUNT, AUTOMATED 385 10^3/uL (150-450); RED CELL DISTRIBUTION WIDTH 12.5 % (11.5-14.5); WHITE BLOOD COUNT 8.4 10^3/uL (4.0-10.0)
[2017-06-09 20:57] LABS: ADD MORPHOLOGY? NO
[2017-06-09 21:51] LABS: ERYTHROCYTE SEDIMENTATION RATE 9 mm/hr (0-20)
[2017-06-12 00:06] LABS: Lyme Disease IgG/IgM Antibodie <0.91 ISR (0.00-0.90); Lyme Disease IgM Ab Quantitati <0.80 index (0.00-0.79)
== END ==
LOC: M LAB 16:11
PROVIDERS: ATTEND Nurse Practitioner Family
DX: M54.2 Cervicalgia (principal)

== ENCOUNTER → 2017-07-20 | Outpatient (CLI) | payer OTHER ==
--- NOTE | 2017-08-06 01:43 | ECWPNPC ---
PATIENT NAME: KECIA JACKSON : 1980 GENDER: FEMALE VISIT DATE: 07/20/2017 DISCHARGE DATE: 07/20/17 1008 VISIT LOCKED DATE TIME: PHYSICIAN: DUSTIN PARKER RESOURCE: DUSTIN PARKER REASON FOR APPOINTMENT 1. POST PN HISTORY OF PRESENT ILLNESS HISTORY OF PRESENT ILLNESS: PAIN THE PATIENT DESCRIBES THE PAIN... FALL RISK SCREENING: SCREENING :NO FALLS IN THE PAST YEAR TODAY'S VISIT: NOTES: S/P BILATERAL SIJ COMPLETED ON 07/06/17. PAIN LEVEL PRIOR WAS 5/10. PAIN LEVEL DECREASED TO 3/10 X ALMOST 2 WEEKS. LEFT SIDE HAS BEEN 2-3 AND QUITE MANAGABLE. RIGHT SIDE RADIATES DOWN LEG INTERMITTANTLY AND THE DAY PROGRESSES. MEDS ARE HELPING WITH SLEEP BUT THEN HAS DIFFICULTY STAYING ASLEEP. HAS BEEN TO PT AND WAS SEEN BY DR CLIFFORD. NO CAUSE COULD BE DETERMINED FOR LE WEAKNESS. CURRENT MEDICATIONS TAKING VENTOLIN HFA 108 (90 BASE) MCG/ACT AEROSOL SOLUTION 2 PUFFS NEEDED INHALATION EVERY 4 HRS TAKING TYLENOL EXTRA STRENGTH 500 MG TABLET 2 TABLETS NEEDED ORALLY EVERY 6 HRS TAKING TIZANIDINE HCL 2 MG TABLET 1 TABLET NEEDED ORALLY THREE TIMES A DAY TAKING ADDERALL XR 30 MG CAPSULE EXTENDED RELEASE 24 HOUR 1 CAPSULE IN THE MORNING ORALLY ONCE A DAY TAKING AMPHETAMINE-DEXTROAMPHET ER 20 MG CAPSULE EXTENDED RELEASE 24 HOUR 1 TAB ORALLY ONCE A DAY IN AFTERNOON TAKING CYMBALTA 20 MG CAPSULE DELAYED RELEASE PARTICLES 1 CAPSULE ORALLY ONCE A DAY TAKING MULTIVITAMIN TABLET CHEWABLE ORALLY NOT-TAKING GABAPENTIN 300 MG CAPSULE 1 CAPSULE ORALLY THREE TIMES A DAY FOR PAIN MDD3, NOTES: 02/19/17@2100 MEDICATION LIST REVIEWED AND RECONCILED WITH THE PATIENT PAST MEDICAL HISTORY ADHD - DIAGNOSED IN [facility] ASTHMA - [facility]ED BY [facility] GERD BEING FOLLOWED BY NEUROLOGY () FOR MS WORKUP - MRI C-SPINE (11/18) - NO ABNORMALITY. MRI BRAIN WITH AND WITHOUT - NEGATIVE STUDY. LOW BACK PAIN AND HIP PAIN - LUMBAR SPINE MRI (04/18) - NORMAL STUDY - NORMAL EMG-NCV. NEGATIVE INFLAMMATORY AND RHEUMATOID WORKUP. (NO CRP) KIDNEY STONE DDD OCD/ANXIETY/PTSD - ZOLOFT ALLERGIES NSAIDS: GIBLEED/ULCER: CONTRAINDICATION SURGICAL HISTORY C SECTION X 3 EGD 2012 COLPOSCOPY WITH AVELINO 01/05/15 LUMBAR SPINAL INJECTIONS SOCIAL HISTORY GENERAL: TOBACCO USE ARE YOU A:NONSMOKER LUNG CANCER SCREENING SMOKING STATUS:NON SMOKER BMI CARE GOAL FOLLOW-UP ABOVE NORMAL BMI FOLLOW-UPGIVING ENCOURAGEMENT TO EXERCISE, NUTRITION / FEEDING MANAGEMENT, WEIGHT MONITORING ALCOHOL SCREENING POINTS: 1, INTERPRETATION: NEGATIVE. RECREATIONAL DRUG USE DRUG USE?NO CAFFEINE CAFFEINE USE?NO SEXUAL HX HAD SEX IN THE LAST 12 MONTHS (VAGINAL, ORAL, OR ANAL)?: YES, WITH: MEN ONLY, USE PROTECTION?: NO, HAVE YOU EVER HAD AN STD?: NO. 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 DIET: REGULAR. EXERCISE: NO REGULAR EXERCISE. MARITAL STATUS: . OTHERS AT HOME: SPOUSE, CHILDREN. PETS: 1 DOG. SIKH [id number] CON[employer]CI[employer] LANGUAGE [place] CITIZEN. EDUCATION LEVEL OF EDUCATION:COLLEGE TAKING ONLINE CLASSES NOW, 3, NOT GOING WELL, NOT ABLE TO GET TO THEM DURING THE DAY AND TOO TIRED AT NIGHT. LEARNING BARRIERS / SPECIAL NEEDS CHANGE FROM LAST VISIT?NO BARRIERS TO LEARNING?NO HEARING IMPAIRED?NO VISION IMPAIRED?YES :CORRECTIVE LENSES COGNITIVELY IMPAIRED?NO READINESS TO LEARN?YES LEARNING PREFERENCES?YES :DEMONSTRATION/VERBAL INSTRUCTION LEARNING CAPABILITIES PRESENT?NO EMOTIONAL BARRIERS?YES ADHD COMMENTSDOCUMENTED IN NOTES SECTION> SPECIAL DEVICES?NO IN FLIGHT REFUELING OPERATOR NEEDED?NO PSYCHOLOGICAL HX TREATMENTYES HOW OFTEN AND HOW MUCH? NEEDED PAIN CLINIC PFS, CLERGY, PUBLIC HEALTH REFERRALS PFS REFERRAL NEEDED?NO CLERGY REFERRAL NEEDED?NO PUBLIC HEALTH REFERRAL NEEDED?NO HAS THE PATIENT BEEN EDUCATED REGARDING HIS/HER PLAN OF CARE?YES HAS THE PATIENT BEEN EDUCATED REGARDING PAIN, THE RISK FOR PAIN, THE IMPORTANCE OF EFFECTIVE PAIN MANAGEMENT, AND THE PAIN ASSESSMENT PROCESS?YES ADVANCE DIRECTIVES HEALTH CARE PROXY?NO PRINTED INFORMATION ON HCP GIVEN TO PATIENT AND EXPLAINED. SHE VERBALIZED UNDERSTANDING POWER OF FEED IN WORKER?NO TRAVEL OUTSIDE US: DENIES. HOUSING: HOUSE, LIVES WITH AND THREE CHILDREN. DOMESTIC VIOLENCE NONE. HOSPITALIZATION/MAJOR DIAGNOSTIC PROCEDURE CHILDBIRTH X3 PNEUMONIA AGE 18 DEPRESSION 2014 REVIEW OF SYSTEMS REVIEWED BY: PROVIDER: . CONSTITUTIONAL: ANY CHANGE IN YOUR MEDICAL CONDITION? NO . CHILLS NO . FEVER NO . INFECTION: DO YOU HAVE NEW INFECTIONS? NO . DO YOU HAVE HISTORY OF MRSA? NO . MUSCULOSKELETAL: ANY NEW PATTERNS OF PAIN OR NUMBNESS? NO . GASTROENTEROLOGY: ANY NEW CHANGE IN BOWEL CONTROL? YES, EVERY TIME SHE EATS IT GOES RIGHT THROUGH HER . GENITOURINARY: ANY NEW CHANGE IN BLADDER CONTROL? NO . IS THERE A CHANCE YOU COULD BE ? NO . HEMATOLOGY/LYMPH: DO YOU TAKE ANY BLOOD THINNERS? (FOR EXAMPLE- COUMADIN, PLAVIX, AGGRENOX, PLATEL, PRADAXA, OR XARELTO) NO . WHEN WAS YOUR LAST DOSE? DATE: TIME: . NEUROLOGY: HAVE YOU FALLEN IN THE PAST 6 MONTHS? NO . ANY NEW EXTREMITY NUMBNESS OR WEAKNESS? NO . CARDIOLOGY: DO YOU HAVE A PACEMAKER OR DEFIBRILLATOR? NO . RESPIRATORY: HAVE YOU BEEN SICK IN THE PAST WEEK? NO . FEVER NO . FLU LIKE SYMPTOMS? NO . COUGH NO . INTEGUMENTARY: DO YOU HAVE ANY RASHES OR OPEN SORES? NO . ALLERGIC/IMMUNO: ARE YOU ALLERGIC TO SHELLFISH OR IV DYE? NO . ANY NEW ALLERGIES? NO . PSYCHIATRIC: DO YOU HAVE THOUGHTS OF HURTING YOURSELF OR SOMEONE ELSE? NO . ARE YOU ABUSED, NEGLECTED, OR IN AN UNSAFE ENVIRONMENT? NO . ENDOCRINOLOGY: ARE YOU DIABETIC? NO . OTHER: DO YOU NEED ANY PRESCRIPTIONS? NO . IF YES, PLEASE LIST: ____ . ANY NEW PROBLEMS WITH YOUR MEDICATIONS? NO . WHEN DID YOU LAST EAT? ____ . WHEN DID YOU LAST DRINK? ____ . WHAT DID YOU LAST DRINK? ____ . NAME OF PERSON DRIVING YOU HOME? ____ . DO YOU HAVE ANY OTHER QUESTIONS OR CONCERNS NO . VITAL SIGNS WT 187.0 LBS, HT 4'11", BMI 37.77 INDEX, BP 144/92 MM HG, HR 70 /MIN, RR 16 /MIN, TEMP 97.8 F, OXYGEN SAT % 99%, NA INITIALS TL 0916, REVIEWED BY: NL. EXAMINATION GENERAL EXAMINATION: MUSCULOSKELETAL:QUAD WEAK LLE, TREMORS WITH EXERTION. ASSESSMENTS CERVICALGIA - M54.2 (PRIMARY) SACROILIITIS - M46.1 GENERALIZED PAIN - R52 MYALGIA - M79.1 TREATMENT CERVICALGIA NOTES: PIRIFORMIS EXERCISES TOLERATED. SACROILIITIS TRIGGER POINT 3 + DUSTIN MAHONEY 07/20/2017 10:01:13 AM > RIGHT PIRIFORMIS MUSCLE MYALGIA TRIGGER POINT 3 + DUSTIN MAHONEY 07/20/2017 10:01:13 AM > RIGHT PIRIFORMIS MUSCLE PROCEDURE CODES FA211 ESTABILISHED PATIENT [facility] FACILITY CHARGE DISPOSITION & COMMUNICATION FOLLOW UP AFTER INJECTION (REASON: SANDIP RIGHT HIP PELVIS IMAGING DONE AT [facility] IN LAST 6 MONTHS) ELECTRONICALLY SIGNED BY AMANDA DO ON 08/04/2017 AT 08:45 AM EST DISCLAIMER : THIS IS A VISIT SUMMARY EXTRACTED FROM THE [employer] CHART. IT IS NOT A COPY OF THE [employer] PROGRESS NOTE. BOLIVARD
== END ==
LOC: M PAIN 09:00
PROVIDERS: ATTEND Nurse Practitioner Family
DX: G89.29 Other chronic pain (principal); M54.2 Cervicalgia; M46.1 Sacroiliitis, not elsewhere classified; M79.1 Myalgia; J45.909 Unspecified asthma, uncomplicated; K21.9 Gastro-esophageal reflux disease without esophagitis; F41.9 Anxiety disorder, unspecified; F43.10 Post-traumatic stress disorder, unspecified; F42.9 Obsessive-compulsive disorder, unspecified; Z79.899 Other long term (current) drug therapy; Z88.6 Allergy status to analgesic agent

== ENCOUNTER → 2017-08-03 | Outpatient (CLI) | payer OTHER ==
--- NOTE | 2017-08-03 20:02 | REP ---
Partial lumbar spine series: Five views . History: Injection procedure for pain. 19 seconds of fluoroscopy time is reported. Findings: A sequence of five fluoroscopically obtained last image hold procedural spot radiographs of the lumbar spine document needle position and contrast injection associated with injection procedure. Signed by Gurdeep Davis MD 08/03/2017 07:53 P
--- NOTE | 2017-08-19 00:07 | ECWPNPC ---
PATIENT NAME: KECIA JACKSON : 1980 GENDER: FEMALE VISIT DATE: 08/03/2017 DISCHARGE DATE: 08/03/17 1551 VISIT LOCKED DATE TIME: PHYSICIAN: VERNELL GASTELUM RESOURCE: VERNELL GASTELUM REASON FOR APPOINTMENT 1. LOW BACK PAIN HISTORY OF PRESENT ILLNESS GENERAL: 36 YEAR OLD FEMALE PATIENT WITH HISTORY OF CHRONIC LOW BACK PAIN. PATIENT DESCRIBES THE PAIN ACHING, TENDER, SORE, AND HAVING IT ALL THE TIME WITH A PAIN SCORE OF 7/10. CURRENTLY THE PATIENT IS EXPERIENCING RADICULAR PAIN THAT THE PATIENT STATES IS BECOMING SEVERE. PATIENT IS USING TIZANIDINE, CYMBALTA, AND TYLENOL FOR PAIN MANAGEMENT AND STATES THAT THE MEDICATION TAKES THE EDGE OFF. MRS. JACKSON STATES THAT ANY TYPE OF ACTIVITY INCLUDING WALKING, STANDING, AND SITTING FOR ANY LENGTH OF TIME INCREASES THE PAIN IN THE LOWER BACK AREA. PATIENT DENIES UNEXPLAINABLE WEIGHT LOSS, FEVER, CHILLS, NEW CHANGES ON HER URINARY OR BOWEL CONTROL. CURRENT MEDICATIONS TAKING VENTOLIN HFA 108 (90 BASE) MCG/ACT AEROSOL SOLUTION 2 PUFFS NEEDED INHALATION EVERY 4 HRS TAKING TYLENOL EXTRA STRENGTH 500 MG TABLET 2 TABLETS NEEDED ORALLY EVERY 6 HRS TAKING TIZANIDINE HCL 2 MG TABLET 1 TABLET NEEDED ORALLY THREE TIMES A DAY TAKING CYMBALTA 20 MG CAPSULE DELAYED RELEASE PARTICLES 1 CAPSULE ORALLY ONCE A DAY TAKING MULTIVITAMIN TABLET CHEWABLE ORALLY TAKING AMPHETAMINE-DEXTROAMPHET ER 20 MG CAPSULE EXTENDED RELEASE 24 HOUR 1 TAB ORALLY ONCE A DAY IN AFTERNOON TAKING ADDERALL XR 30 MG CAPSULE EXTENDED RELEASE 24 HOUR 1 CAPSULE IN THE MORNING ORALLY ONCE A DAY NOT-TAKING GABAPENTIN 300 MG CAPSULE 1 CAPSULE ORALLY THREE TIMES A DAY FOR PAIN MDD3, NOTES: 02/19/17@2100 MEDICATION LIST REVIEWED AND RECONCILED WITH THE PATIENT PAST MEDICAL HISTORY ADHD - DIAGNOSED IN [facility] ASTHMA - FO[facility]ED BY [facility] GERD BEING FOLLOWED BY NEUROLOGY () FOR MS WORKUP - MRI C-SPINE (11/18) - NO ABNORMALITY. MRI BRAIN WITH AND WITHOUT - NEGATIVE STUDY. LOW BACK PAIN AND HIP PAIN - LUMBAR SPINE MRI (04/18) - NORMAL STUDY - NORMAL EMG-NCV. NEGATIVE INFLAMMATORY AND RHEUMATOID WORKUP. (NO CRP) KIDNEY STONE DDD OCD/ANXIETY/PTSD - ZOLOFT ALLERGIES NSAIDS: GIBLEED/ULCER: CONTRAINDICATION SURGICAL HISTORY C SECTION X 3 EGD 2012 COLPOSCOPY WITH AVELINO 09/11/14 LUMBAR SPINAL INJECTIONS FAMILY HISTORY FATHER: 57 YRS, DIAGNOSED WITH STROKE, OTHER MOTHER: ALIVE 58 YRS, DIAGNOSED WITH PSYCHIATRIC CONDITIONS, OTHER SOCIAL HISTORY GENERAL: TOBACCO USE ARE YOU A:NONSMOKER LUNG CANCER SCREENING SMOKING STATUS:NON SMOKER BMI CARE GOAL FOLLOW-UP ABOVE NORMAL BMI FOLLOW-UPGIVING ENCOURAGEMENT TO EXERCISE, NUTRITION / FEEDING MANAGEMENT, WEIGHT MONITORING ALCOHOL SCREENING POINTS: 1, INTERPRETATION: NEGATIVE. RECREATIONAL DRUG USE DRUG USE?NO CAFFEINE CAFFEINE USE?NO SEXUAL HX HAD SEX IN THE LAST 12 MONTHS (VAGINAL, ORAL, OR ANAL)?: YES, WITH: MEN ONLY, USE PROTECTION?: NO, HAVE YOU EVER HAD AN STD?: NO. 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 DIET: REGULAR. EXERCISE: NO REGULAR EXERCISE. MARITAL STATUS: . OTHERS AT HOME: SPOUSE, CHILDREN. PETS: 1 DOG. B[employer] [id number] [employer]AN LANGUAGE [place]IAN. EDUCATION LEVEL OF EDUCATION:COLLEGE TAKING ONLINE CLASSES NOW, 3, NOT GOING WELL, NOT ABLE TO GET TO THEM DURING THE DAY AND TOO TIRED AT NIGHT. LEARNING BARRIERS / SPECIAL NEEDS CHANGE FROM LAST VISIT?NO BARRIERS TO LEARNING?NO HEARING IMPAIRED?NO VISION IMPAIRED?YES :CORRECTIVE LENSES COGNITIVELY IMPAIRED?NO READINESS TO LEARN?YES LEARNING PREFERENCES?YES :DEMONSTRATION/VERBAL INSTRUCTION LEARNING CAPABILITIES PRESENT?NO EMOTIONAL BARRIERS?YES ADHD COMMENTSDOCUMENTED IN NOTES SECTION> SPECIAL DEVICES?NO TEST CONSULTANT NEEDED?NO PSYCHOLOGICAL HX TREATMENTYES HOW OFTEN AND HOW MUCH? NEEDED PAIN CLINIC PFS, CLERGY, PUBLIC HEALTH REFERRALS PFS REFERRAL NEEDED?NO CLERGY REFERRAL NEEDED?NO PUBLIC HEALTH REFERRAL NEEDED?NO HAS THE PATIENT BEEN EDUCATED REGARDING HIS/HER PLAN OF CARE?YES HAS THE PATIENT BEEN EDUCATED REGARDING PAIN, THE RISK FOR PAIN, THE IMPORTANCE OF EFFECTIVE PAIN MANAGEMENT, AND THE PAIN ASSESSMENT PROCESS?YES ADVANCE DIRECTIVES HEALTH CARE PROXY?NO PRINTED INFORMATION ON HCP GIVEN TO PATIENT AND EXPLAINED. SHE VERBALIZED UNDERSTANDING POWER OF PUBLIC ADDRESS SYSTEM OPERATOR?NO TRAVEL OUTSIDE US: DENIES. HOUSING: HOUSE, LIVES WITH AND THREE CHILDREN. DOMESTIC VIOLENCE NONE. HOSPITALIZATION/MAJOR DIAGNOSTIC PROCEDURE CHILDBIRTH X3 PNEUMONIA AGE 18 DEPRESSION 2014 VITAL SIGNS WT 186 LBS, HT 4'11", BMI 37.56 INDEX, BP 135/83 MM HG, HR 77 /MIN, RR 16 /MIN, TEMP 97.9 F, OXYGEN SAT % 98%, REVIEWED BY: FREDDY. EXAMINATION GENERAL: PATIENT IS ALERT O X 3 AND COOPERATIVE. TENDERNESS IN THE LOWER BACK AND PARASPINAL MUSCLE GROUP. MRI OF THE LUMBAR SPINE DONE ON 09/28/15 SHOWS DISC DEGENERATION AT L5-S1. ASSESSMENTS INTERVERTEBRAL DISC DISORDER WITH RADICULOPATHY OF LUMBAR REGION - M51.16 (PRIMARY) TREATMENT INTERVERTEBRAL DISC DISORDER WITH RADICULOPATHY OF LUMBAR REGION NOTES: WE DISCUSSED SEVERAL ISSUES WITH MRS. JACKSON'S PAIN MANAGEMENT CASE. AT THIS TIME THE PATIENT WILL CONTINUE WITH THE SAME MEDICATION REGIME BEFORE. DUE TO THE RADICULAR PAIN I WOULD LIKE TO PROCEED WITH A LUMBAR EPIDURAL. WE DISCUSSED THE RISKS, BENENFITS, AND ALTNERATIVES OF THE INJECTION AND THE PATIENT WOULD LIKE TO PROCEED AT THIS TIME. INSTRUCTIONS WERE GIVEN, QUESTIONS WERE ANSWERED, PATIENT REPORTS UNDERSTANDING AND AGREES WITH THE PLAN. I, LINDA MOROCHO, DOCUMENTED THE ABOVE INFORMATION ACTING A SCRIBE FOR DR. GASTELUM. I HAVE REVIEWED THE ABOVE DOCUMENT, WRITTEN BY LINDA COOKIBKimmy AND I VERIFY THAT IT IS ACCURATE. PROCEDURE CODES FA211 ESTABILISHED PATIENT [facility] FACILITY CHARGE G8427 DOC MEDS VERIFIED W/PT OR RE G8730 PAIN ASSESS POS TOOL F/U PLAN DOC DISPOSITION & COMMUNICATION FOLLOW UP LESI AFTER APPROVAL ELECTRONICALLY SIGNED BY VERNELL GASTELUM MD ON 08/18/2017 AT 10:14 PM EST DISCLAIMER : THIS IS A VISIT SUMMARY EXTRACTED FROM THE [employer] CHART. IT IS NOT A COPY OF THE [employer] PROGRESS NOTE. MTDD
== END ==
LOC: M PAIN 15:45
PROVIDERS: ATTEND Anesthesiology
DX: G89.29 Other chronic pain (principal); M51.16 Intervertebral disc disorders with radiculopathy, lumbar region; Z79.899 Other long term (current) drug therapy; Z88.8 Allergy status to other drugs, medicaments and biological substances

== ENCOUNTER → 2017-08-03 | Outpatient (CLI) | payer OTHER ==
[~2017-08-03] MED LIST changes: +ISOVUE-M 300 61% 15ML VIAL (Q9967) As Ordered ONE; +LIDOCAINE 1% SDV INJ 30 ML VIAL As Ordered ONE; +MIDAZOLAM INJ 2 MG/2 ML VIAL (J2250) As Ordered ONE; +fentaNYL 100 MCG/2 ML INJECTION (J3010) As Ordered ONE; +methylPREDNISolone SUSP 40 MG/ML (DEPO-medrol) VIAL (J1030) As Ordered ONE
--- NOTE | 2017-08-19 00:51 | ECWPNPC ---
PATIENT NAME: KECIA JACKSON : 1980 GENDER: FEMALE VISIT DATE: 08/03/2017 DISCHARGE DATE: 08/03/17 1320 VISIT LOCKED DATE TIME: PHYSICIAN: VERNELL GASTELUM RESOURCE: VERNELL GASTELUM REASON FOR APPOINTMENT 1. LESI HISTORY OF PRESENT ILLNESS HISTORY OF PRESENT ILLNESS: PAIN THE PATIENT DESCRIBES THE PAIN... FALL RISK SCREENING: SCREENING :NO FALLS IN THE PAST YEAR CURRENT MEDICATIONS TAKING VENTOLIN HFA 108 (90 BASE) MCG/ACT AEROSOL SOLUTION 2 PUFFS NEEDED INHALATION EVERY 4 HRS, NOTES: NONE RECENT TAKING TYLENOL EXTRA STRENGTH 500 MG TABLET 2 TABLETS NEEDED ORALLY EVERY 6 HRS, NOTES: 08/02/17 2100 TAKING TIZANIDINE HCL 2 MG TABLET 1 TABLET NEEDED ORALLY THREE TIMES A DAY, NOTES: 08/01/17 TAKING CYMBALTA 20 MG CAPSULE DELAYED RELEASE PARTICLES 1 CAPSULE ORALLY ONCE A DAY, NOTES: 08/02/17 0700 TAKING MULTIVITAMIN TABLET CHEWABLE ORALLY DAILY, NOTES: 08/03/17 0700 TAKING AMPHETAMINE-DEXTROAMPHET ER 20 MG CAPSULE EXTENDED RELEASE 24 HOUR 1 TAB ORALLY ONCE A DAY IN AFTERNOON, NOTES: 08/02/17 1230 TAKING ADDERALL XR 30 MG CAPSULE EXTENDED RELEASE 24 HOUR 1 CAPSULE IN THE MORNING ORALLY ONCE A DAY, NOTES: 08/03/17 0700 NOT-TAKING GABAPENTIN 300 MG CAPSULE 1 CAPSULE ORALLY THREE TIMES A DAY FOR PAIN MDD3, NOTES: 02/19/17@2100 MEDICATION LIST REVIEWED AND RECONCILED WITH THE PATIENT PAST MEDICAL HISTORY ADHD - DIAGNOSED IN [facility] ASTHMA - [facility] GERD BEING FOLLOWED BY NEUROLOGY () FOR MS WORKUP - MRI C-SPINE (11/18) - NO ABNORMALITY. MRI BRAIN WITH AND WITHOUT - NEGATIVE STUDY. LOW BACK PAIN AND HIP PAIN - LUMBAR SPINE MRI (04/18) - NORMAL STUDY - NORMAL EMG-NCV. NEGATIVE INFLAMMATORY AND RHEUMATOID WORKUP. (NO CRP) KIDNEY STONE DDD OCD/ANXIETY/PTSD - ZOLOFT ALLERGIES NSAIDS: GIBLEED/ULCER: CONTRAINDICATION SURGICAL HISTORY C SECTION X 3 EGD 2011 COLPOSCOPY WITH AVELINO 09/11/14 LUMBAR SPINAL INJECTIONS FAMILY HISTORY FATHER: 57 YRS, DIAGNOSED WITH STROKE, OTHER MOTHER: ALIVE 58 YRS, DIAGNOSED WITH PSYCHIATRIC CONDITIONS, OTHER SOCIAL HISTORY GENERAL: TOBACCO USE ARE YOU A:NONSMOKER LUNG CANCER SCREENING SMOKING STATUS:NON SMOKER BMI CARE GOAL FOLLOW-UP ABOVE NORMAL BMI FOLLOW-UPGIVING ENCOURAGEMENT TO EXERCISE, NUTRITION / FEEDING MANAGEMENT, WEIGHT MONITORING ALCOHOL SCREENING POINTS: 1, INTERPRETATION: NEGATIVE. RECREATIONAL DRUG USE DRUG USE?NO CAFFEINE CAFFEINE USE?NO SEXUAL HX HAD SEX IN THE LAST 12 MONTHS (VAGINAL, ORAL, OR ANAL)?: YES, WITH: MEN ONLY, USE PROTECTION?: NO, HAVE YOU EVER HAD AN STD?: NO. 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 DIET: REGULAR. EXERCISE: NO REGULAR EXERCISE. MARITAL STATUS: . OTHERS AT HOME: SPOUSE, CHILDREN. PETS: 1 DOG. YARSANISM [id number] MANDAEN LANGUAGE ARABIC. EDUCATION LEVEL OF EDUCATION:COLLEGE TAKING ONLINE CLASSES NOW, 3, NOT GOING WELL, NOT ABLE TO GET TO THEM DURING THE DAY AND TOO TIRED AT NIGHT. LEARNING BARRIERS / SPECIAL NEEDS CHANGE FROM LAST VISIT?NO BARRIERS TO LEARNING?NO HEARING IMPAIRED?NO VISION IMPAIRED?YES :CORRECTIVE LENSES COGNITIVELY IMPAIRED?NO READINESS TO LEARN?YES LEARNING PREFERENCES?YES :DEMONSTRATION/VERBAL INSTRUCTION LEARNING CAPABILITIES PRESENT?NO EMOTIONAL BARRIERS?YES ADHD COMMENTSDOCUMENTED IN NOTES SECTION> SPECIAL DEVICES?NO INTERVENTIONAL PHYSICIAN NEEDED?NO PSYCHOLOGICAL HX TREATMENTYES HOW OFTEN AND HOW MUCH? NEEDED PAIN CLINIC PFS, CLERGY, PUBLIC HEALTH REFERRALS PFS REFERRAL NEEDED?NO CLERGY REFERRAL NEEDED?NO PUBLIC HEALTH REFERRAL NEEDED?NO HAS THE PATIENT BEEN EDUCATED REGARDING HIS/HER PLAN OF CARE?YES HAS THE PATIENT BEEN EDUCATED REGARDING PAIN, THE RISK FOR PAIN, THE IMPORTANCE OF EFFECTIVE PAIN MANAGEMENT, AND THE PAIN ASSESSMENT PROCESS?YES ADVANCE DIRECTIVES HEALTH CARE PROXY?NO PRINTED INFORMATION ON HCP GIVEN TO PATIENT AND EXPLAINED. SHE VERBALIZED UNDERSTANDING DO YOU HAVE A DNR?NO WOULD YOU LIKE MORE INFORMATION?NO LIVING WILL?YES DO YOU HAVE A COPY WITH YOU?NO POWER OF CUT IN WORKER?NO WOULD YOU LIKE MORE INFORMATION?NO TRAVEL OUTSIDE US: DENIES. HOUSING: HOUSE, LIVES WITH AND THREE CHILDREN. DOMESTIC VIOLENCE NONE. HOSPITALIZATION/MAJOR DIAGNOSTIC PROCEDURE CHILDBIRTH X3 PNEUMONIA AGE 18 DEPRESSION 2014 REVIEW OF SYSTEMS REVIEWED BY: PROVIDER: . CONSTITUTIONAL: ANY CHANGE IN YOUR MEDICAL CONDITION? NO . CHILLS NO . FEVER NO . INFECTION: DO YOU HAVE NEW INFECTIONS? NO . DO YOU HAVE HISTORY OF MRSA? NO . MUSCULOSKELETAL: ANY NEW PATTERNS OF PAIN OR NUMBNESS? NO . GASTROENTEROLOGY: ANY NEW CHANGE IN BOWEL CONTROL? NO . GENITOURINARY: ANY NEW CHANGE IN BLADDER CONTROL? NO . IS THERE A CHANCE YOU COULD BE ? NO . HEMATOLOGY/LYMPH: DO YOU TAKE ANY BLOOD THINNERS? (FOR EXAMPLE- COUMADIN, PLAVIX, AGGRENOX, PLATEL, PRADAXA, OR XARELTO) NO . WHEN WAS YOUR LAST DOSE? DATE: TIME: . NEUROLOGY: HAVE YOU FALLEN IN THE PAST 6 MONTHS? NO . ANY NEW EXTREMITY NUMBNESS OR WEAKNESS? NO . CARDIOLOGY: DO YOU HAVE A PACEMAKER OR DEFIBRILLATOR? NO . RESPIRATORY: HAVE YOU BEEN SICK IN THE PAST WEEK? NO . FEVER NO . FLU LIKE SYMPTOMS? NO . COUGH NO . INTEGUMENTARY: DO YOU HAVE ANY RASHES OR OPEN SORES? NO . ALLERGIC/IMMUNO: ARE YOU ALLERGIC TO SHELLFISH OR IV DYE? NO . ANY NEW ALLERGIES? NO . PSYCHIATRIC: DO YOU HAVE THOUGHTS OF HURTING YOURSELF OR SOMEONE ELSE? NO . ARE YOU ABUSED, NEGLECTED, OR IN AN UNSAFE ENVIRONMENT? NO . ENDOCRINOLOGY: ARE YOU DIABETIC? NO . OTHER: DO YOU NEED ANY PRESCRIPTIONS? YES . IF YES, PLEASE LIST: TIZANIDINE . ANY NEW PROBLEMS WITH YOUR MEDICATIONS? NO . WHEN DID YOU LAST EAT? 2014 . WHEN DID YOU LAST DRINK? 0 . WHAT DID YOU LAST DRINK? WATER . NAME OF PERSON DRIVING YOU HOME? MYRANDA . DO YOU HAVE ANY OTHER QUESTIONS OR CONCERNS NO . VITAL SIGNS WT 186.0 LBS, HT 4'11", BMI 37.56 INDEX, BP 135/83 MM HG, HR 77 /MIN, RR 16 /MIN, TEMP 97.9 F, OXYGEN SAT % 98%, NA INITIALS TL 1447, REVIEWED BY: FREDDY. ASSESSMENTS INTERVERTEBRAL DISC DISORDER WITH RADICULOPATHY OF LUMBAR REGION - M51.16 (PRIMARY) PROCEDURES PRE PROCEDURE DIAGNOSIS LUMBAR DISC DISORDER WITH RADICULOPATHY POST PROCEDURE DIAGNOSIS LUMBAR DISC DISORDER WITH RADICULOPATHY PROCEDURE LUMBAR EPIDURAL STEROID INJECTION UNDER FLUOROSCOPIC GUIDANCE SURGEON DR. VERNELL GASTELUM CLERICAL AND OFFICE SUPPORT WORKERS NONE ANESTHESIA LOCAL W/ IV SEDATION PRE PROCEDURE NOTE THE PATIENT HAS A HISTORY OF CHRONIC LOW BACK PAIN. I EVALUATE THE PATIENT AND REVIEWED THE CHART. I WENT OVER THE RISKS, ALTERNATIVES, AND BENEFITS ASSOCIATED WITH THIS PROCEDURE. PATIENT WOULD LIKE TO MOVE FORWARD WITH IV SEDATION DUE TO DISCOMFORT, PAIN AND ANXIETY ASSOCIATED WITH THE PROCEDURE. THE PATIENT WOULD LIKE TO PROCEED AND GIVE CONSENT TO PERFORMED THE PROCEDURE. THE PATIENT DENIES UNEXPLAINABLE WEIGHT LOSS, FEVER, CHILLS, OR NEW CHANGES IN URINARY OR BOWEL CONTROL. DESCRIPTION OF PROCEDURE THE PATIENT WAS BROUGHT TO THE PROCEDURE ROOM AND PLACED IN THE PRONE POSITION. THE LUMBOSACRAL AREA WAS CLEANED WITH BETADINE SOLUTION AND DRAPED ASEPTICALLY. THE PROCEDURE WAS DONE UNDER STERILE CONDITIONS. I CHECKED LATERALITY AND THE LEVEL WHERE THE PROCEDURE WAS GOING TO BE PERFORMED WITH THE PATIENT AND THE SUPPORTING STAFF AT THE MOMENT OF THE TIME OUT IN THE PROCEDURE ROOM. UNDER FLUOROSCOPIC GUIDANCE, THE TARGET POINT WAS SELECTED AT THE INTERLAMINAR LEVEL OF L4-L5. LIDOCAINE WAS USED TO NUMB THE SKIN AND THE SUBCUTANEOUS TISSUE BELOW IT. EPIDURAL TUOHY NEEDLE, 17-GAUGE, WAS ADVANCED UNDER FLUOROSCOPIC GUIDANCE AND FOLLOWING PATIENT FEEDBACK UNTIL THE EPIDURAL SPACE WAS REACHED, 7 CM DEEP INTO THE SKIN BY THE LOSS OF RESISTANCE TECHNIQUE. ISOVUE M DYE 30%, 0.25 ML, WAS INJECTED SHOWING ADEQUATE SPREAD OF THE DYE. THEN, A SOLUTION OF 3 ML OF NORMAL SALINE WITH DEPO-MEDROL 60 MG WAS INJECTED SLOWLY FOLLOWING PATIENT FEEDBACK. PATIENT RECEIVED VERSED 4 MG AND FENTANYL 150 MCG IV DIVIDED DOSES THERE WAS NO EVIDENCE OF BLOOD, PARESTHESIA OR CEREBROSPINAL FLUID DURING THE PROCEDURE. THE PATIENT WAS SENT TO THE RECOVERY ROOM. THE PATIENT WAS MOVING THE EXTREMITIES AND DOING WELL. THERE WAS NO COMPLICATION DURING THE PROCEDURE. FLUOROSCOPY TIME WAS 19 SECONDS. FACE TO FACE TIME WAS 16 MINUTES POST PROCEDURE NOTE THE PATIENT WILL BE SEEN IN A FOLLOW UP IN THE NEXT FEW WEEKS. INSTRUCTIONS WERE GIVEN, QUESTIONS WERE ANSWERED, AND THE PATIENT EXPRESSED UNDERSTANDING AND AGREES WITH THE PLAN. I, LINDA MOROCHO, DOCUMENTED THE ABOVE INFORMATION ACTING A SCRIBE FOR DR. GASTELUM. I HAVE REVIEWED THE ABOVE DOCUMENT, WRITTEN BY LINDA MOROCHO SCRIBKimmy AND I VERIFY THAT IT IS ACCURATE DIAGNOSTIC IMAGING [facility] FLUORO GUIDE SPINE INJECTION (PAIN)[id number] PROCEDURE CODES 05642 LUMBAR/SACRAL W/ IMAGING 6045F RADXPS IN END [id number] PXD [id number] MOD SED SAME PHYS/QHP 5/>YRS DISPOSITION & COMMUNICATION FOLLOW UP 2 WEEKS ELECTRONICALLY SIGNED BY VERNELL GASTELUM MD ON 08/18/2017 AT 09:38 PM EST DISCLAIMER : THIS IS A VISIT SUMMARY EXTRACTED FROM THE [employer] CHART. IT IS NOT A COPY OF THE [employer] PROGRESS NOTE. MTDD
== END ==
LOC: M PAIN 14:30
PROVIDERS: ATTEND Anesthesiology
DX: G89.29 Other chronic pain (principal); M51.16 Intervertebral disc disorders with radiculopathy, lumbar region; Z79.899 Other long term (current) drug therapy; Z88.8 Allergy status to other drugs, medicaments and biological substances
CPT/HCPCS: 62323; 99152; J1030; J2250; J3010; Q9967

== ENCOUNTER → 2017-10-19 | Outpatient (CLI) | payer OTHER | LOC: M PAIN 11:30 | DX: M46.1 Sacroiliitis, not elsewhere classified (principal); R52 Pain, unspecified; M79.1 Myalgia; I73.00 Raynaud's syndrome without gangrene; J45.909 Unspecified asthma, uncomplicated; N20.0 Calculus of kidney; E66.01 Morbid (severe) obesity due to excess calories; Z68.37 Body mass index [BMI] 37.0-37.9, adult; Z79.899 Other long term (current) drug therapy; Z88.6 Allergy status to analgesic agent | CPT/HCPCS: G0463 ==

== ENCOUNTER → 2017-11-16 | Outpatient (CLI) | payer OTHER | LOC: M PAIN 10:15 | DX: M46.1 Sacroiliitis, not elsewhere classified (principal); R52 Pain, unspecified; M79.1 Myalgia; M51.16 Intervertebral disc disorders with radiculopathy, lumbar region; J45.909 Unspecified asthma, uncomplicated; F41.9 Anxiety disorder, unspecified; F90.9 Attention-deficit hyperactivity disorder, unspecified type; K59.00 Constipation, unspecified; Z79.891 Long term (current) use of opiate analgesic; Z79.899 Other long term (current) drug therapy; Z88.8 Allergy status to other drugs, medicaments and biological substances | CPT/HCPCS: G0463 ==

== ENCOUNTER → 2018-02-24 | Outpatient (CLI) | payer OTHER ==
[~2018-02-24] MED LIST changes: -IBUP80TA PO; +ISOVUE-M 300 61% 15ML VIAL (Q9967) As Ordered; -ISOVUE-M 300 61% 15ML VIAL (Q9967) As Ordered ONE; +LIDOCAINE 1% MDV 20ML VIAL As Ordered; +LIDOCAINE 1% SDV INJ 30 ML VIAL As Ordered; -LIDOCAINE 1% SDV INJ 30 ML VIAL As Ordered ONE; -MIDAZOLAM INJ 2 MG/2 ML VIAL (J2250) As Ordered ONE; -PERCOCET PO; +diazePAM 5 MG TAB As Ordered; +diphenhydrAMINE 25 MG CAP As Ordered; -fentaNYL 100 MCG/2 ML INJECTION (J3010) As Ordered ONE; +methylPREDNISolone SUSP 40 MG/ML (DEPO-medrol) VIAL (J1030) As Ordered; -methylPREDNISolone SUSP 40 MG/ML (DEPO-medrol) VIAL (J1030) As Ordered ONE; +oxyCODONE 5MG TAB As Ordered
== END ==
LOC: M PAIN 13:45
DX: G89.29 Other chronic pain (principal); M51.16 Intervertebral disc disorders with radiculopathy, lumbar region; J45.909 Unspecified asthma, uncomplicated; F43.10 Post-traumatic stress disorder, unspecified; F41.9 Anxiety disorder, unspecified; E66.01 Morbid (severe) obesity due to excess calories; Z68.37 Body mass index [BMI] 37.0-37.9, adult; Z79.899 Other long term (current) drug therapy; Z88.6 Allergy status to analgesic agent
CPT/HCPCS: J1030

== ENCOUNTER 2018-04-10 03:09 | Emergency (ER) | payer OTHER | END 2018-04-10 05:11 | disposition left against medical advice (07) | LOC: M ED 03:09 | DX: R51 Headache (principal); Z53.21 Procedure and treatment not carried out due to patient leaving prior to being seen by health care provider ==

== ENCOUNTER 2018-04-10 20:02 | Emergency (ER) | payer OTHER ==
[2018-04-10 21:02] LABS: HEMATOCRIT 44.1 % (36.0-47.0); HEMOGLOBIN 14.7 g/dl (12.0-15.5); MEAN CORPUSCULAR HEMOGLOBIN 30.3 pg (27.0-33.0); MEAN CORPUSCULAR HGB CONC 33.3 g/dl (32.0-36.5); MEAN CORPUSCULAR VOLUME 90.9 fl (80.0-96.0); PLATELET COUNT, AUTOMATED 344 10^3/uL (150-450); RED BLOOD COUNT 4.85 10^6/uL (4.00-5.40); WHITE BLOOD COUNT 8.7 10^3/uL (4.0-10.0)
[2018-04-10 21:10] LABS: AMPHETAMINES LEVEL URINE POSITIVE (NEGATIVE); BARBITURATES URINE NEGATIVE (NEGATIVE); BENZODIAZEPINES URINE NEGATIVE (NEGATIVE); CANNABINOIDS URINE NEGATIVE (NEGATIVE); COCAINE METABOLITE URINE NEGATIVE (NEGATIVE); METHADONE URINE NEGATIVE (NEGATIVE); OPIATES URINE NEGATIVE (NEGATIVE); PHENCYCLIDINE URINE NEGATIVE (NEGATIVE)
[2018-04-10 21:19] LABS: CONTROL LINE HCG INT CTR LINE PRESENT; HCG, SERUM QUALITATIVE NEGATIVE (NEGATIVE)
[2018-04-10 21:33] LABS: ALBUMIN 3.5 GM/DL (3.2-5.2); ALBUMIN/GLOBULIN RATIO 0.88 (1.00-1.93); ALKALINE PHOSPHATASE 108 U/L (45-117); ALT/SGPT 23 U/L (12-78); ANION GAP 7 MEQ/L (8-16); AST/SGOT 18 U/L (7-37); BILIRUBIN,DIRECT 0.2 MG/DL (0.0-0.2); BILIRUBIN,TOTAL 0.9 MG/DL (0.2-1.0); BLOOD UREA NITROGEN 10 MG/DL (7-18); CALCIUM LEVEL 9.2 MG/DL (8.5-10.1); CARBON DIOXIDE LEVEL 29 MEQ/L (21-32); CHLORIDE LEVEL 105 MEQ/L (98-107); CREATININE FOR GFR 0.66 MG/DL (0.55-1.30); GLOMERULAR FILTRATION RATE > 60.0 (>60); GLUCOSE, FASTING 79 MG/DL (70-100); SALICYLATE LEVEL < 1.7 MG/DL (5.0-30.0); SODIUM LEVEL 141 MEQ/L (136-145); TOTAL PROTEIN 7.5 GM/DL (6.4-8.2)
[2018-04-10 21:35] LABS: ACETAMINOPHEN LEVEL < 2.0 UG/ML (10.0-30.0); ETHYL ALCOHOL (ETHANOL) < 0.003 % (0.000-0.010)
== END 2018-04-10 23:18 | disposition home or self-care (01) ==
LOC: M ED 20:02
DX: F43.9 Reaction to severe stress, unspecified (principal); J45.909 Unspecified asthma, uncomplicated; G89.29 Other chronic pain; Z79.899 Other long term (current) drug therapy; Z88.8 Allergy status to other drugs, medicaments and biological substances
CPT/HCPCS: 80320

== ENCOUNTER → 2019-07-19 | Outpatient (CLI) | payer MEDICARE, MEDICAID ==
[~2019-07-19] MED LIST changes: +ADDE20CA3 PO; +ADDE30CA3 PO; +IBUP80TA PO; -ISOVUE-M 300 61% 15ML VIAL (Q9967) As Ordered; -LIDOCAINE 1% MDV 20ML VIAL As Ordered; -LIDOCAINE 1% SDV INJ 30 ML VIAL As Ordered; +PERCOCET PO; +RANI15TA PO; +TIZA2CAP PO; -diazePAM 5 MG TAB As Ordered; -diphenhydrAMINE 25 MG CAP As Ordered; -methylPREDNISolone SUSP 40 MG/ML (DEPO-medrol) VIAL (J1030) As Ordered; -oxyCODONE 5MG TAB As Ordered
--- NOTE | 2019-07-21 02:13 | ECWPNPC ---
PATIENT NAME: KECIA JACKSON : 1980 GENDER: FEMALE VISIT DATE: 07/19/2019 DISCHARGE DATE: 07/19/19 1545 VISIT LOCKED DATE TIME: PHYSICIAN: CHLOÉ TAM RESOURCE: CHLOÉ TAM REASON FOR APPOINTMENT 1. CHRONIC LOW BACK PAIN-PREVIOUS PATIENT HISTORY OF PRESENT ILLNESS NEW PATIENT CONSULT: 38-YEAR-OLD FEMALE IN FOR CONSULT FOR CHRONIC PAIN. PATIENT HAS BEEN SEEN IN CLINIC BEFORE LAST VISIT WAS IN 2018. SHE RATES HER PAIN CURRENTLY AT A 7 OUT OF 10 AND DESCRIBES IT ACHING, BURNING, TENDER, AND PINS AND NEEDLES. HER PAIN EMANATES FROM HER LOW BACK AND RADIATES DOWN HER RIGHT LEG. WHEN ASKED SHE DENIES ACUTE INJURY FURTHER STATING THAT THIS HAS BEEN A CHRONIC PROBLEM FOR HER SINCE LATE . SHE ADMITS TO BEING ON CYMBALTA IN THE PAST AND SAID THIS WAS INEFFECTIVE. SHE DOES ADMIT TO BEING ON GABAPENTIN AND LYRICA IN THE PAST AND IS UNSURE OF WHICH ONE WAS INEFFECTIVE. WHEN DID YOUR PAIN FIRST START? . BRIEFLY DESCRIBE HOW YOUR PAIN STARTED? . HOW DOES YOUR PAIN CHANGE WITH TIME? . DOES YOUR PAIN AWAKEN YOU FROM SLEEP? . HOW MANY HOURS OF SLEEP DO YOU NORMALLY GET? . ANY DIAGNOSTIC TESTING? . FACILITY WHERE TESTS WERE DONE? ____. PAIN TREATMENT TREATMENT YES CANCER HAVE YOU EVER HAD ANY TYPE OF CANCER?NO NO. PAIN SCREENING: PATIENT HAS A COMPLAINT OF ACUTE OR CHRONIC PAIN :YES FALL RISK SCREENING: SCREENING : NO FALLS IN THE PAST YEAR. DENTON INVENTORY: QUESTIONNAIRE ASSESSEDTBD SCORE VALUE CALCULATED TBD CURRENT MEDICATIONS TAKING VENTOLIN HFA 108 (90 BASE) MCG/ACT AEROSOL SOLUTION 2 PUFFS NEEDED INHALATION EVERY 4 HRS, NOTES: 1 MONTH AGO TAKING MULTIVITAMIN TABLET CHEWABLE ORALLY DAILY, NOTES: 0615 TAKING MIRALAX - PACKET 1 PACKET MIXED WITH 8 OUNCES OF FLUID ORALLY ONCE A DAY, NOTES: 1 MONTH AGO TAKING AMPHETAMINE-DEXTROAMPHET ER 20 MG CAPSULE EXTENDED RELEASE 24 HOUR 1 TAB ORALLY ONCE A DAY IN AFTERNOON TAKING ADDERALL XR 30 MG CAPSULE EXTENDED RELEASE 24 HOUR 1 CAPSULE IN THE MORNING ORALLY ONCE A DAY, NOTES: 0615 TAKING ACETAMINOPHEN 325 MG TABLET 3 TABLET NEEDED ORALLY 3 TIMES A DAY NEEDED NOT-TAKING TYLENOL EXTRA STRENGTH 500 MG TABLET 2 TABLETS NEEDED ORALLY EVERY 6 HRS, NOTES: 02/23/18@2300 NOT-TAKING TRAMADOL HCL 50 MG TABLET 1 - 2 TABLET NEEDED ORALLY EVERY 6 HRS PRN PAIN MDD=4, NOTES: 02/23/18@2300 MEDICATION LIST REVIEWED AND RECONCILED WITH THE PATIENT PAST MEDICAL HISTORY ADHD - DIAGNOSED IN [facility] ASTHMA - [facility] GERD RENAL LITHIASIS 11/21 MRI R HIP MILD TENDINOBURSITIS OCD/ANXIETY/PTSD - RESPONDED TO ZOLOFT IN THE PAST 09/22 MRI L SPINE, L5-S1 MILD DISC DEGENERATION, OTHERWISE NL. MORBID OBESITY CERVICALGIA SACROILIITIS MYALGIA MIGRAINES DEPRESSION RAYNAUD'S STOMACH ULCERS ALLERGIES NSAIDS: GIBLEED/ULCER - CONTRAINDICATION SURGICAL HISTORY C SECTION X 3 EGD 2012 COLPOSCOPY WITH AVELINO 09/11/14 LUMBAR SPINAL INJECTIONS FAMILY HISTORY FATHER: 54 YRS, MS, CVA, BRAIN ANEURYSM MOTHER: ALIVE 59 YRS, DEPRESSION, THYROID DISEASE, PRE-DM, HTN SIBLINGS: BROTHER -1/2 PATERNAL - STILLBORN 1 FULL BROTHER - UNK 1/2 PATERNAL SISTER - BACK ISSUES SON(S): ALIVE 16 YRS, AUTISM DAUGHTER(S): ALIVE, 1999 - ASTHMA, DEPRESSION, ASBERGER'S, ADHD, ANXIETY 2014 - HEALTHY 2 BROTHER(S) , 1 SISTER(S) . 1 SON(S) , 2 DAUGHTER(S) - HEALTHY. BROTHER - ASTHMA. SOCIAL HISTORY GENERAL: TOBACCO USE ARE YOU A:NONSMOKER VAPORNO E-CIGARETTENO OTHERS AT HOME: CHILDREN, SPOUSE. HOUSING: OWNS HOME. EDUCATION LEVEL OF EDUCATION:NOT FINISHED COLLEGE DIET: REGULAR. LANGUAGE LANGUAGES SPOKEN:GERMAN RECREATIONAL DRUG USE DRUG USE?NO PATIENT DENIES ABUSE OR MISSUSED OF ANY MEDICATION. PATIENT DENIES USE OF ANY ILLEGAL SUBSTANCE INCLUDING MARIJUANA OR COCAINE. EXERCISE: NO REGULAR EXERCISE. LEARNING BARRIERS / SPECIAL NEEDS BARRIERS TO LEARNING?NO HEARING IMPAIRED?NO VISION IMPAIRED?YES :CORRECTIVE LENSES COGNITIVELY IMPAIRED?NO READINESS TO LEARN?YES LEARNING PREFERENCES?NO LEARNING CAPABILITIES PRESENT?YES EMOTIONAL BARRIERS?NO SPECIAL DEVICES?NO CIRCULAR HEAD SAW OPERATOR NEEDED?NO PAIN CLINIC PFS, CLERGY, PUBLIC HEALTH REFERRALS PFS REFERRAL NEEDED?NO CLERGY REFERRAL NEEDED?NO PUBLIC HEALTH REFERRAL NEEDED?NO WAS THE PROVIDER NOTIFIED OF ANY PERTINENT INFO?NO HAS THE PATIENT BEEN EDUCATED REGARDING HIS/HER PLAN OF CARE?YES HAS THE PATIENT BEEN EDUCATED REGARDING PAIN, THE RISK FOR PAIN, THE IMPORTANCE OF EFFECTIVE PAIN MANAGEMENT, AND THE PAIN ASSESSMENT PROCESS?YES LATEX QUESTIONNAIRE LATEX ALLERGY : HAVE YOU EVER DEVELOPED ANY TYPE OF REACTION AFTER HANDLING LATEX PRODUCTS SUCH RUBBER GLOVES, CONDOMS, DIAPHRAGMS, BALLOONS, SOCKS, OR UNDERWEAR?NO LATEX ALLERGY : HAVE YOU EVER DEVELOPED ANY TYPE OF REACTION DURING OR AFTER DENTAL APPOINTMENT, VAGINAL/RECTAL EXAMINATION, SURGICAL PROCEDURE, OR ANY OTHER EXPOSURE?NO LATEX RISK : HAVE YOU EVER HAD ANY DIFFICULTY BREATHING OR HIVES AFTER EATING OR HANDLING ANY FRUITS, OR VEGETABLES; SUCH KIWI, BANANAS, STONE FRUITS, OR CHESTNUTSNO LATEX RISK : DO YOU HAVE A PREVIOUS PERSONAL HISTORY OF MORE THAN NINE SURGERIES, SPINA BIFIDA, OR REPEATED CATHERIZATIONS? NO LATEX RISK : ARE YOU FREQUENTLY EXPOSED TO LATEX PRODUCTS IN YOUR OCCUPATION?NO DATE ASKED : 07/19/2019 CAFFEINE CAFFEINE USE?YES HOW OFTEN AND HOW MUCH? 3-4 CUPS COFFEE PER WEEK ADVANCE DIRECTIVE ADVANCE DIRECTIVE DISCUSSED WITH PATIENT:YES NONE- INFORMATION OFFERED AND DECLINED. ORIENTAL ORTHODOX [id number] YARSANISM MARITAL STATUS: . ALCOHOL SCREENING DID YOU HAVE A DRINK CONTAINING ALCOHOL IN THE PAST YEAR?NO POINTS0 INTERPRETATIONNEGATIVE OCCUPATION: NOT WORKING. HOSPITALIZATION/MAJOR DIAGNOSTIC PROCEDURE CHILDBIRTH X3 PNEUMONIA AGE 18 DEPRESSION 04/2014 DEPRESSION 2018 REVIEW OF SYSTEMS REVIEWED BY: PROVIDER: AYSE TAM PHYSICIAN/ALLERGY/IMMUNOLOGY-C . CONSTITUTIONAL: ANY CHANGE IN YOUR MEDICAL CONDITION? NO . CHILLS NO . FEVER NO . INFECTION: DO YOU HAVE NEW INFECTIONS? NO . DO YOU HAVE HISTORY OF MRSA? NO . MUSCULOSKELETAL: ANY NEW PATTERNS OF PAIN OR NUMBNESS? NO . SYTEMIC LUPUS NO . GASTROENTEROLOGY: ANY NEW CHANGE IN BOWEL CONTROL? NO, CONSTIPATION . BARRETTS ESOPHAGUS NO . CIRRHOSIS NO . HEPATITIS NO . LIVER FAILURE NO . ACID REFLUX NO . UNEXPLAINED WEIGHT LOSS NO . GENITOURINARY: ANY NEW CHANGE IN BLADDER CONTROL? YES - FREQUENCY . IS THERE A CHANCE YOU COULD BE ? NO . HEMATOLOGY/LYMPH: DO YOU TAKE ANY BLOOD THINNERS? (FOR EXAMPLE- COUMADIN, PLAVIX, AGGRENOX, PLATEL, PRADAXA, OR XARELTO) NO . WHEN WAS YOUR LAST DOSE? DATE: TIME: . LOW PLATELET COUNT NO . SICKLE CELL DISEASE NO . VON WILLIEBRANDS NO . FACTOR V LEIDEN NO . THALLASEMIA NO . ANEMIA NO . EASY BRUISING NO . NEUROLOGY: HAVE YOU FALLEN IN THE PAST 12 MONTHS? NO . ANY NEW EXTREMITY NUMBNESS OR WEAKNESS? YES - WEAKNEES LEFT ARM . HEAD INJURY NO . DEMENTIA NO . CEREBRAL PALSY NO . MULTIPLE SCLEROSIS NO . DIZZINESS NO . HEADACHE NO . STROKES NO . VERTIGO YES . CARDIOLOGY: DO YOU HAVE A PACEMAKER OR DEFIBRILLATOR? NO . ANGINA NO . HEART ATTACK NO . HEART SURGERY NO . CONGESTIVE HEART FAILURE/FLUID OVERLOAD NO . CHEST PAIN NO . HIGH BLOOD PRESSURE NO . IRREGULAR HEART BEAT NO . RESPIRATORY: HAVE YOU BEEN SICK IN THE PAST WEEK? NO . FEVER NO . FLU LIKE SYMPTOMS? NO . CPAP NO . BYPAP NO . ASTHMA YES . EMPHYSEMA NO . CHRONIC LUNG DISEASES NO . SHORTNESS OF BREATH ON EXERTION NO . DO YOU USE ANY TYPE OF TOBACCO (SMOKE, SMOKELESS, CHEW)? NO . COUGH NO . SNORING NO . INTEGUMENTARY: DO YOU HAVE ANY RASHES OR OPEN SORES? NO . ALLERGIC/IMMUNO: ARE YOU ALLERGIC TO IV DYE? NO . ANY NEW ALLERGIES? NO . PSYCHIATRIC: DO YOU HAVE THOUGHTS OF HURTING YOURSELF OR SOMEONE ELSE? NO . ARE YOU ABUSED, NEGLECTED, OR IN AN UNSAFE ENVIRONMENT? NO . ENDOCRINOLOGY: ARE YOU DIABETIC? NO . THYROID DISORDER NO . OTHER: DO YOU NEED ANY PRESCRIPTIONS? NO . IF YES, PLEASE LIST: ____ . ANY NEW PROBLEMS WITH YOUR MEDICATIONS? NO . WHEN DID YOU LAST EAT? ____ . WHEN DID YOU LAST DRINK? ____ . WHAT DID YOU LAST DRINK? ____ . NAME OF PERSON DRIVING YOU HOME? ____ . DO YOU HAVE ANY OTHER QUESTIONS OR CONCERNS NO . VITAL SIGNS WT 175.0 LBS, HT 4'11", BMI 35.34 INDEX, BP 129/67 MM HG, HR 84 /MIN, RR 18 /MIN, TEMP 97.9 F, OXYGEN SAT % 97%, NA INITIALS AW 1431, REVIEWED BY: LS. EXAMINATION GENERAL EXAMINATION: GENERALNO ACUTE DISTRESS, WELL NOURISHED AND HYDRATED. PSYCHAPPROPRIATE MOOD AND AFFECT . LUNGS:CLEAR TO AUSCULTATION BILATERALLY, NO WHEEZES, RHONCHI, RALES. HEART:NO MURMURS, REGULAR RATE AND RHYTHM. ASSESSMENTS INTERVERTEBRAL DISC DISORDERS WITH RADICULOPATHY, LUMBAR REGION - M51.16 (PRIMARY) TREATMENT INTERVERTEBRAL DISC DISORDERS WITH RADICULOPATHY, LUMBAR REGION START GABAPENTIN CAPSULE, 100 MG, 1 CAPSULE, ORALLY, BID X 3 DAYS THEN TID, 30 DAY(S), 90 NOTES: LUMBAR EPIDURAL L4-L5 L5-S1. CLINICAL NOTES: 38-YEAR-OLD FEMALE IN FOR CHRONIC PAIN CONSULT. GIVEN PRESENTING SYMPTOMS AND RESULTS OF PHYSICAL EXAMINATION RECOMMENDED LUMBAR EPIDURAL L4-L5 L5-S1 WITH POSTPROCEDURAL FOLLOW-UP. FURTHER RECOMMENDED GABAPENTIN 100 MG TWICE A DAY X3 DAYS THEN INCREASING TO 100 MG 3 TIMES A DAY. PATIENT HAS EXPRESSED UNDERSTANDING OF AND WAS IN AGREEMENT WITH TREATMENT PLAN. GIVEN TIME TO ASK QUESTIONS AND EXPRESS CONCERNS.. PREVENTIVE MEDICINE PAIN CLINIC TEACHING: MEDICATIONS PT GIVEN WRITTTEN AND VERBAL EDUCTION ON STARTING GABAPENTIN. PT VERBALIZES UNDERSTANDING OF ALL EDUCATION, STATING SHE HAS USED GABAPENTIN IN THE PAST. PRIYANK FIELDS 07/19/2019 3:47:39 PM > . PROCEDURE TEACHING PT GIVEN WRITTEN AND VERBAL EDUCATION ON EPIDURAL INJECTION. PT ALSO GIVEN WRITTEN AND VERBAL PRE PROCEDURE INSTRUCTIONS. PT VERBALIZES UNDERSTANDING OF ALL EDUCATION AND INSTRUCTIONS, STATING SHE HAS HAD THIS PROCEDURE IN THE PAST. PRIYANK FIELDS 07/19/2019 3:48:43 PM > . PROCEDURE CODES FA211 ESTABILISHED PATIENT [facility] FACILITY CHARGE DISPOSITION & COMMUNICATION FOLLOW UP POSTPROCEDURE (REASON: LUMBAR EPIDURAL L4-L5 L5-S1) ELECTRONICALLY SIGNED BY GIN ALVAREZ ON 07/20/2019 AT 01:43 PM EST DISCLAIMER : THIS IS A VISIT SUMMARY EXTRACTED FROM THE [employer] CHART. IT IS NOT A COPY OF THE [employer] PROGRESS NOTE. JARRED
== END ==
LOC: M PAIN 14:00
PROVIDERS: ATTEND Family Medicine
DX: M51.16 Intervertebral disc disorders with radiculopathy, lumbar region (principal); G89.29 Other chronic pain; Z86.59 Personal history of other mental and behavioral disorders; J45.909 Unspecified asthma, uncomplicated; M79.10 Myalgia, unspecified site; G43.909 Migraine, unspecified, not intractable, without status migrainosus; Z88.6 Allergy status to analgesic agent; Z86.69 Personal history of other diseases of the nervous system and sense organs; Z79.899 Other long term (current) drug therapy

== ENCOUNTER 2019-10-05 11:06 | Emergency (ER) | payer MEDICARE, MEDICAID ==
[~2019-10-05 11:06] MED LIST changes: -ISOVUE-M 300 61% 15ML VIAL (Q9967) As Ordered ONE; -LIDOCAINE 1% SDV INJ 30 ML VIAL As Ordered ONE; -diazePAM 5 MG TAB As Ordered ONE; -diphenhydrAMINE 25 MG CAP As Ordered ONE; -methylPREDNISolone SUSP 40 MG/ML (DEPO-medrol) VIAL (J1030) As Ordered ONE; -oxyCODONE 5MG TAB As Ordered ONE
[2019-10-05] MEDS ORDERED: DEXTROSE 50% 50 ML SYRINGE IV STA (11:15)
[2019-10-05] MEDS ORDERED: DEXTROSE 50% 50 ML SYRINGE As Ordered ONE (11:15)
[2019-10-05 11:31] LABS: BASO % 0.2 % (0.0-1.0); EOS # 0.2 10^3/uL (0.0-0.5); EOS % 2.2 % (0.0-3.0); HEMATOCRIT 45.3 % (36.0-47.0); HEMOGLOBIN 14.5 g/dl (12.0-15.5); LYMPH # 2.8 10^3/uL (1.5-5.0); LYMPH % 28.6 % (24.0-44.0); MEAN CORPUSCULAR HEMOGLOBIN 29.7 pg (27.0-33.0); MEAN CORPUSCULAR VOLUME 92.6 fl (80.0-96.0); MONO # 0.8 10^3/uL (0.0-0.8); MONO % 8.2 % (0.0-5.0); NEUTROPHILS # 5.9 10^3/uL (1.5-8.5); NEUTROPHILS % 60.6 % (36.0-66.0); PLATELET COUNT, AUTOMATED 366 10^3/uL (150-450); RED BLOOD COUNT 4.89 10^6/uL (4.00-5.40); WHITE BLOOD COUNT 9.8 10^3/uL (4.0-10.0)
[2019-10-05 12:06] LABS: ALBUMIN 3.7 GM/DL (3.2-5.2); ALT/SGPT 17 U/L (12-78); BILIRUBIN,TOTAL 0.8 MG/DL (0.2-1.0); BLOOD UREA NITROGEN 10 MG/DL (7-18); CALCIUM LEVEL 9.9 MG/DL (8.5-10.1); CARBON DIOXIDE LEVEL 24 MEQ/L (21-32); CHLORIDE LEVEL 104 MEQ/L (98-107); CREATININE FOR GFR 0.72 MG/DL (0.55-1.30); GLOMERULAR FILTRATION RATE > 60.0 (>60); GLUCOSE, FASTING 81 MG/DL (70-100); SODIUM LEVEL 136 MEQ/L (136-145)
[2019-10-05 12:33] LABS: HCG, SERUM QUALITATIVE NEGATIVE (NEGATIVE)
[2019-10-05] MEDS ORDERED: HYALURONIDASE 150UNIT/ML 1ML VIAL (AMPHADASE) (J3470) SC ONE (12:45)
[2019-10-05 14:45] VITALS: BP 126/65
--- NOTE | 2019-10-05 14:53 | ECGEPIP ---
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
== END 2019-10-05 14:56 | disposition home or self-care (01) ==
LOC: M ED 11:06
DX: R55 Syncope and collapse (principal); E16.2 Hypoglycemia, unspecified; G89.29 Other chronic pain; M54.9 Dorsalgia, unspecified; Z79.899 Other long term (current) drug therapy; Z88.8 Allergy status to other drugs, medicaments and biological substances
CPT/HCPCS: 80053; 84703; 85025; 93005; 96374; 99284; J1030; J3470; Q9967

== ENCOUNTER → 2019-10-05 | Outpatient (CLI) | payer MEDICARE, MEDICAID ==
[~2019-10-05] MED LIST changes: +ISOVUE-M 300 61% 15ML VIAL (Q9967) As Ordered ONE; +LIDOCAINE 1% SDV INJ 30 ML VIAL As Ordered ONE; +diazePAM 5 MG TAB As Ordered ONE; +diphenhydrAMINE 25 MG CAP As Ordered ONE; +methylPREDNISolone SUSP 40 MG/ML (DEPO-medrol) VIAL (J1030) As Ordered ONE; +oxyCODONE 5MG TAB As Ordered ONE
--- NOTE | 2019-10-21 04:40 | ECWPNPC ---
PATIENT NAME: KECIA JACKSON : 1980 GENDER: FEMALE VISIT DATE: 10/05/2019 DISCHARGE DATE: 10/05/19 0000 VISIT LOCKED DATE TIME: PHYSICIAN: VERNELL GASTELUM MD RESOURCE: VERNELL GASTELUM MD REASON FOR APPOINTMENT 1. LUMBAR EPIDURAL HISTORY OF PRESENT ILLNESS HISTORY OF PRESENT ILLNESS: PAIN THE PATIENT DESCRIBES THE PAIN... FALL RISK SCREENING: SCREENING :NO FALLS REPORTED IN THE LAST YEAR CURRENT MEDICATIONS TAKING VENTOLIN HFA 108 (90 BASE) MCG/ACT AEROSOL SOLUTION 2 PUFFS NEEDED INHALATION EVERY 4 HRS, NOTES: 10/03 TAKING MULTIVITAMIN TABLET CHEWABLE ORALLY DAILY, NOTES: 10/04 07 TAKING MIRALAX - PACKET 1 PACKET MIXED WITH 8 OUNCES OF FLUID ORALLY ONCE A DAY, NOTES: NONE RECENT TAKING ACETAMINOPHEN 325 MG TABLET 3 TABLET NEEDED ORALLY 3 TIMES A DAY NEEDED TAKING AMPHETAMINE-DEXTROAMPHET ER 20 MG CAPSULE EXTENDED RELEASE 24 HOUR 1 TAB ORALLY ONCE A DAY IN AFTERNOON, NOTES: 10/04 07 TAKING ADDERALL XR 30 MG CAPSULE EXTENDED RELEASE 24 HOUR 1 CAPSULE IN THE MORNING ORALLY ONCE A DAY, NOTES: 10/04 07 TAKING GABAPENTIN 100 MG CAPSULE 1 CAPSULE ORALLY THREE TIMES DAILY, NOTES: 10/04 1900 TAKING TYLENOL EXTRA STRENGTH 500 MG TABLET 2 TABLETS NEEDED ORALLY EVERY 6 HRS, NOTES: 10/03 2100 NOT-TAKING TRAMADOL HCL 50 MG TABLET 1 - 2 TABLET NEEDED ORALLY EVERY 6 HRS PRN PAIN MDD=4, NOTES: 02/23/18@2300 MEDICATION LIST REVIEWED AND RECONCILED WITH THE PATIENT PAST MEDICAL HISTORY ADHD - DIAGNOSED IN [facility] ASTHMA - [facility] GERD RENAL LITHIASIS 11/21 MRI R HIP MILD TENDINOBURSITIS OCD/ANXIETY/PTSD - RESPONDED TO ZOLOFT IN THE PAST 09/22 MRI L SPINE, L5-S1 MILD DISC DEGENERATION, OTHERWISE NL. MORBID OBESITY CERVICALGIA SACROILIITIS MYALGIA MIGRAINES DEPRESSION RAYNAUD'S STOMACH ULCERS ALLERGIES NSAIDS: GIBLEED/ULCER - CONTRAINDICATION SURGICAL HISTORY C SECTION X 3 EGD 2012 COLPOSCOPY WITH AVELINO 09/11/14 LUMBAR SPINAL INJECTIONS FAMILY HISTORY FATHER: 54 YRS, MS, CVA, BRAIN ANEURYSM MOTHER: ALIVE 60 YRS, DEPRESSION, THYROID DISEASE, PRE-DM, HTN SIBLINGS: BROTHER -1/2 PATERNAL - STILLBORN 1 FULL BROTHER - UNK 1/ PATERNAL SISTER - BACK ISSUES SON(S): ALIVE 17 YRS, AUTISM DAUGHTER(S): ALIVE, 1999 - ASTHMA, DEPRESSION, ASBERGER'S, ADHD, ANXIETY 2014 - HEALTHY 2 BROTHER(S) , 1 SISTER(S) . 1 SON(S) , 2 DAUGHTER(S) - HEALTHY. BROTHER - ASTHMA. SOCIAL HISTORY GENERAL: TOBACCO USE ARE YOU A:NONSMOKER VAPORNO E-CIGARETTENO OTHERS AT HOME: CHILDREN, SPOUSE. HOUSING: OWNS HOME. EDUCATION LEVEL OF EDUCATION:NOT FINISHED COLLEGE DIET: REGULAR. LANGUAGE LANGUAGES SPOKEN:COMORAN RECREATIONAL DRUG USE DRUG USE?NO PATIENT DENIES ABUSE OR MISSUSED OF ANY MEDICATION. PATIENT DENIES USE OF ANY ILLEGAL SUBSTANCE INCLUDING MARIJUANA OR COCAINE. EXERCISE: NO REGULAR EXERCISE. LEARNING BARRIERS / SPECIAL NEEDS BARRIERS TO LEARNING?NO HEARING IMPAIRED?NO VISION IMPAIRED?YES :CORRECTIVE LENSES COGNITIVELY IMPAIRED?NO READINESS TO LEARN?YES LEARNING PREFERENCES?NO LEARNING CAPABILITIES PRESENT?YES EMOTIONAL BARRIERS?NO SPECIAL DEVICES?NO MANAGER GARDEN NEEDED?NO PAIN CLINIC PFS, CLERGY, PUBLIC HEALTH REFERRALS PFS REFERRAL NEEDED?NO CLERGY REFERRAL NEEDED?NO PUBLIC HEALTH REFERRAL NEEDED?NO HAS THE PATIENT BEEN EDUCATED REGARDING HIS/HER PLAN OF CARE?YES HAS THE PATIENT BEEN EDUCATED REGARDING PAIN, THE RISK FOR PAIN, THE IMPORTANCE OF EFFECTIVE PAIN MANAGEMENT, AND THE PAIN ASSESSMENT PROCESS?YES LATEX QUESTIONNAIRE LATEX ALLERGY : HAVE YOU EVER DEVELOPED ANY TYPE OF REACTION AFTER HANDLING LATEX PRODUCTS SUCH RUBBER GLOVES, CONDOMS, DIAPHRAGMS, BALLOONS, SOCKS, OR UNDERWEAR?NO LATEX ALLERGY : HAVE YOU EVER DEVELOPED ANY TYPE OF REACTION DURING OR AFTER DENTAL APPOINTMENT, VAGINAL/RECTAL EXAMINATION, SURGICAL PROCEDURE, OR ANY OTHER EXPOSURE?NO LATEX RISK : HAVE YOU EVER HAD ANY DIFFICULTY BREATHING OR HIVES AFTER EATING OR HANDLING ANY FRUITS, OR VEGETABLES; SUCH KIWI, BANANAS, STONE FRUITS, OR CHESTNUTSNO LATEX RISK : DO YOU HAVE A PREVIOUS PERSONAL HISTORY OF MORE THAN NINE SURGERIES, SPINA BIFIDA, OR REPEATED CATHERIZATIONS? NO LATEX RISK : ARE YOU FREQUENTLY EXPOSED TO LATEX PRODUCTS IN YOUR OCCUPATION?NO DATE ASKED : 10/03/2019 CAFFEINE CAFFEINE USE?YES HOW OFTEN AND HOW MUCH? 3-4 CUPS COFFEE PER WEEK ADVANCE DIRECTIVE ADVANCE DIRECTIVE DISCUSSED WITH PATIENT:YES 10/05/2019 PT DOES NOT HAVE ANY ADVANCED DIRECTIVES AND SHE DECLINES INFORMATION ON HCP AT THIS TIME AD ORTHODOX [id number] RASTAFARI MARITAL STATUS: . ALCOHOL SCREENING DID YOU HAVE A DRINK CONTAINING ALCOHOL IN THE PAST YEAR?NO POINTS0 INTERPRETATIONNEGATIVE OCCUPATION: NOT WORKING. PRE PROCEDURE PHONE CALL COMPLETED 10/03/2019 1309 NLJ. HOSPITALIZATION/MAJOR DIAGNOSTIC PROCEDURE CHILDBIRTH X3 PNEUMONIA AGE 18 DEPRESSION 04/2014 DEPRESSION 2017 REVIEW OF SYSTEMS REVIEWED BY: PROVIDER: . CONSTITUTIONAL: ANY CHANGE IN YOUR MEDICAL CONDITION? NO . CHILLS NO . FEVER NO . INFECTION: DO YOU HAVE NEW INFECTIONS? NO . DO YOU HAVE HISTORY OF MRSA? NO . MUSCULOSKELETAL: ANY NEW PATTERNS OF PAIN OR NUMBNESS? YES, LEFT ARM HAS BEEN WEAK FOR A COUPLE OF MONTHS--WILL DISCUSS WITH HER PCP . GASTROENTEROLOGY: ANY NEW CHANGE IN BOWEL CONTROL? NO . GENITOURINARY: ANY NEW CHANGE IN BLADDER CONTROL? NO . IS THERE A CHANCE YOU COULD BE ? NO . HEMATOLOGY/LYMPH: DO YOU TAKE ANY BLOOD THINNERS? (FOR EXAMPLE- COUMADIN, PLAVIX, AGGRENOX, PLATEL, PRADAXA, OR XARELTO) NO . WHEN WAS YOUR LAST DOSE? DATE: TIME: . NEUROLOGY: HAVE YOU FALLEN IN THE PAST 12 MONTHS? NO . ANY NEW EXTREMITY NUMBNESS OR WEAKNESS? NO . CARDIOLOGY: DO YOU HAVE A PACEMAKER OR DEFIBRILLATOR? NO . RESPIRATORY: HAVE YOU BEEN SICK IN THE PAST WEEK? NO . FEVER NO . FLU LIKE SYMPTOMS? NO . COUGH NO . INTEGUMENTARY: DO YOU HAVE ANY RASHES OR OPEN SORES? NO . ALLERGIC/IMMUNO: ARE YOU ALLERGIC TO IV DYE? NO . ANY NEW ALLERGIES? NO . PSYCHIATRIC: DO YOU HAVE THOUGHTS OF HURTING YOURSELF OR SOMEONE ELSE? NO . ARE YOU ABUSED, NEGLECTED, OR IN AN UNSAFE ENVIRONMENT? NO . ENDOCRINOLOGY: ARE YOU DIABETIC? NO . OTHER: DO YOU NEED ANY PRESCRIPTIONS? NO . IF YES, PLEASE LIST: ____ . ANY NEW PROBLEMS WITH YOUR MEDICATIONS? NO . WHEN DID YOU LAST EAT? 10/04 1829 . WHEN DID YOU LAST DRINK? 10/05 0500 . WHAT DID YOU LAST DRINK? WATER . NAME OF PERSON DRIVING YOU HOME? TRE MASON . DO YOU HAVE ANY OTHER QUESTIONS OR CONCERNS NO PT HAS NOT HAD ANY VACCINES IN THE PAST 30 DAYS . VITAL SIGNS WT 172 LBS, HT 59", BMI 34.74 INDEX, BP 114/72 MM HG, HR 69 /MIN, RR 16 /MIN, TEMP 96.5 F, OXYGEN SAT % 98, SAFE IN ENV? (Y/N) Y, REVIEWED BY: ALEXX [id number]. ASSESSMENTS INTERVERTEBRAL DISC DISORDER WITH RADICULOPATHY OF LUMBAR REGION - M51.16 (PRIMARY) TREATMENT INTERVERTEBRAL DISC DISORDER WITH RADICULOPATHY OF LUMBAR REGION [facility] FLUORO GUIDE SPINE INJECTION (PAIN)[id number] PROCEDURES PRE PROCEDURE DIAGNOSIS LUMBAR DISC DISORDER WITH RADICULOPATHY POST PROCEDURE DIAGNOSIS LUMBAR DISC DISORDER WITH RADICULOPATHY PROCEDURE LUMBAR EPIDURAL STEROID INJECTION UNDER FLUOROSCOPIC GUIDANCE ATTEMPTED SURGEON DR. VERNELL GASTELUM DOOR LINER NONE ANESTHESIA LOCAL PRE PROCEDURE NOTE THE PATIENT HAS A HISTORY OF CHRONIC LOW BACK PAIN. I EVALUATED THE PATIENT AND REVIEWED THE CHART. I WENT OVER THE RISKS, ALTERNATIVES, AND BENEFITS ASSOCIATED WITH THIS PROCEDURE. THE PATIENT EXPRESSED THAT SHE WOULD LIKE TO PROCEED AND GAVE CONSENT TO PERFORM THE PROCEDURE. THE PATIENT DENIES UNEXPLAINABLE WEIGHT LOSS, FEVER, CHILLS, OR NEW CHANGES IN URINARY OR BOWEL CONTROL DESCRIPTION OF PROCEDURE THE PATIENT WAS BROUGHT TO THE PROCEDURE ROOM AND PLACED IN THE PRONE POSITION. THE LUMBOSACRAL AREA WAS CLEANED WITH BETADINE SOLUTION AND DRAPED ASEPTICALLY. THE PROCEDURE WAS DONE UNDER STERILE CONDITIONS. I CHECKED LATERALITY AND THE LEVEL WHERE THE PROCEDURE WAS GOING TO BE PERFORMED WITH THE PATIENT AND THE SUPPORTING STAFF AT THE MOMENT OF THE TIME OUT IN THE PROCEDURE ROOM. MS. JACKSON WAS NERVOUS AND CRYING. I ASKED HER IF SHE WANTS TO PROCEED. SHE VERBALIZED THAT SHE WAS FINE AND TO PROCEED. COMFORT WAS GIVEN AND WE STARTED THE PROCEDURE. UNDER FLUOROSCOPIC GUIDANCE, TARGET WAS SELECTED AT THE INTERLAMINAR LEVEL OF L4-L5. LIDOCAINE WAS USED TO NUMB THE SKIN AND THE SUBCUTANEOUS TISSUE BELOW IT. EPIDURAL TUOHY NEEDLE, 17-GAUGE, WAS ADVANCED UNDER FLUOROSCOPIC GUIDANCE AND FOLLOWING PATIENT FEEDBACK. MS. JACKSON SUDDENLY BECAME UNRESPONSIVE. I REMOVED THE EPIDURAL NEEDLE, MOVED HER SHOULDERS AND SHE RESPONDED. SHE EXPRESSED THAT SHE WAS OKAY. THE PATIENT LOOKED TIRED AND WAS LETHARGIC. I TRANSFERRED THE PATIENT TO THE RECOVERY ROOM AND ORDERED TO START AN IV. FLUOROSCOPY TIME WAS 6 SECONDS POST PROCEDURE NOTE IN THE RECOVERY ROOM THE PATIENT EXPERIENCED CHANGES IN HER MENTAL STATUS. SHE WAS CHANGING BETWEEN RESPONSIVENESS TO LETHARGY. BLOOD SUGAR WAS 48. I CALLED A RAT TEAM. GLUCAGON WAS NOT AVAILABLE. I TRIED TO ADMINISTER D50W IM. WHEN INJECTING I FELT A LOT OF RESISTANCE. I AM NOT SURE IF D50W WAS DELIVERED TO THE PATIENT. I CHECKED THE D50W DISPENSER LATER AND IT DID NOT DELIVER THE SOLUTION THROUGH THE ATTACHED NEEDLE. SEVERAL ATTEMPTS TO START AN IV WERE DONE. THE PATIENT WAS TRANSFERRED TO THE ER DISPOSITION & COMMUNICATION FOLLOW UP 2 WEEKS ELECTRONICALLY SIGNED BY VERNELL GASTELUM MD, MD ON 10/20/2019 AT 11:30 AM EST DISCLAIMER : THIS IS A VISIT SUMMARY EXTRACTED FROM THE [facility] CHART. IT IS NOT A COPY OF THE [facility] PROGRESS NOTE. MTDD
== END ==
LOC: M PAIN 08:30
PROVIDERS: ATTEND Anesthesiology
DX: M51.16 Intervertebral disc disorders with radiculopathy, lumbar region (principal)

== ENCOUNTER → 2019-10-21 | Outpatient (CLI) | payer MEDICARE, MEDICAID ==
--- NOTE | 2019-11-01 04:20 | ECWPNPC ---
PATIENT NAME: KECIA JACKSON : 1980 GENDER: FEMALE VISIT DATE: 10/21/2019 DISCHARGE DATE: 10/21/19 1005 VISIT LOCKED DATE TIME: PHYSICIAN: CHLOÉ TAM RESOURCE: CHLOÉ TAM REASON FOR APPOINTMENT 1. POST LESI-SEE DR GASTELUM BEFORE LEAVING HISTORY OF PRESENT ILLNESS HISTORY OF PRESENT ILLNESS: PAIN THE PATIENT DESCRIBES THE PAIN... 38 OLD FEMALE IN FOR CHRONIC PAIN FOLLOW-UP. PATIENT HAD A HYPOGLYCEMIC EPISODE DURING A RECENT PROCEDURE THAT CAUSED THE PROCEDURE TO BE POSTPONED. PATIENT WAS SEEN IN THE ED FOR THIS. SHE REPORTS NO INCIDENCE OF HYPOGLYCEMIA SINCE LAST CLINIC VISIT. SHE WOULD LIKE TO DISCUSS TRYING THE PROCEDURE AGAIN. SHE RATES HER PAIN CURRENTLY AT A 5 OUT OF 10 AND DESCRIBES IT ACHING, STABBING, TENDER, AND NUMB. SHE FEELS THE GABAPENTIN IS HELPFUL BUT DOES ADMIT THAT IT MAKES HER SLEEPY. FALL RISK SCREENING: SCREENING :NO FALLS REPORTED IN THE LAST YEAR CURRENT MEDICATIONS TAKING MULTIVITAMIN TABLET CHEWABLE ORALLY DAILY TAKING MIRALAX - PACKET 1 PACKET MIXED WITH 8 OUNCES OF FLUID ORALLY ONCE A DAY TAKING ACETAMINOPHEN 325 MG TABLET 3 TABLET NEEDED ORALLY 3 TIMES A DAY NEEDED TAKING GABAPENTIN 100 MG CAPSULE 1 CAPSULE ORALLY THREE TIMES DAILY TAKING TYLENOL EXTRA STRENGTH 500 MG TABLET 2 TABLETS NEEDED ORALLY EVERY 6 HRS TAKING AMPHETAMINE-DEXTROAMPHET ER 20 MG CAPSULE EXTENDED RELEASE 24 HOUR 1 TAB ORALLY ONCE A DAY IN AFTERNOON TAKING ADDERALL XR 30 MG CAPSULE EXTENDED RELEASE 24 HOUR 1 CAPSULE IN THE MORNING ORALLY ONCE A DAY TAKING VENTOLIN HFA 108 (90 BASE) MCG/ACT AEROSOL SOLUTION 2 PUFFS NEEDED INHALATION EVERY 4 HRS NOT-TAKING TRAMADOL HCL 50 MG TABLET 1 - 2 TABLET NEEDED ORALLY EVERY 6 HRS PRN PAIN MDD=4, NOTES: 02/23/18@2300 MEDICATION LIST REVIEWED AND RECONCILED WITH THE PATIENT PAST MEDICAL HISTORY ADHD - DIAGNOSED IN [facility] ASTHMA - [facility] GERD RENAL LITHIASIS 11/21 MRI R HIP MILD TENDINOBURSITIS OCD/ANXIETY/PTSD - RESPONDED TO ZOLOFT IN THE PAST 09/22 MRI L SPINE, L5-S1 MILD DISC DEGENERATION, OTHERWISE NL. MORBID OBESITY CERVICALGIA SACROILIITIS MYALGIA MIGRAINES DEPRESSION RAYNAUD'S STOMACH ULCERS ALLERGIES NSAIDS: GIBLEED/ULCER - CONTRAINDICATION SURGICAL HISTORY C SECTION X 3 EGD 2011 COLPOSCOPY WITH AVELINO Mckeon/05/15 LUMBAR SPINAL INJECTIONS FAMILY HISTORY FATHER: 54 YRS, MS, CVA, BRAIN ANEURYSM MOTHER: ALIVE 60 YRS, DEPRESSION, THYROID DISEASE, PRE-DM, HTN SIBLINGS: BROTHER -1/2 PATERNAL - STILLBORN 1 FULL BROTHER - UNK 1/2 PATERNAL SISTER - BACK ISSUES SON(S): ALIVE 17 YRS, AUTISM DAUGHTER(S): ALIVE, 1999 - ASTHMA, DEPRESSION, ASBERGER'S, ADHD, ANXIETY 2014 - HEALTHY 2 BROTHER(S) , 1 SISTER(S) . 1 SON(S) , 2 DAUGHTER(S) - HEALTHY. BROTHER - ASTHMA. SOCIAL HISTORY GENERAL: TOBACCO USE ARE YOU A:NONSMOKER VAPORNO E-CIGARETTENO OTHERS AT HOME: CHILDREN, SPOUSE. HOUSING: OWNS HOME. EDUCATION LEVEL OF EDUCATION:NOT FINISHED COLLEGE DIET: REGULAR. LANGUAGE LANGUAGES SPOKEN:BELARUSIAN RECREATIONAL DRUG USE DRUG USE?NO PATIENT DENIES ABUSE OR MISSUSED OF ANY MEDICATION. PATIENT DENIES USE OF ANY ILLEGAL SUBSTANCE INCLUDING MARIJUANA OR COCAINE. EXERCISE: NO REGULAR EXERCISE. LEARNING BARRIERS / SPECIAL NEEDS BARRIERS TO LEARNING?NO HEARING IMPAIRED?NO VISION IMPAIRED?YES COGNITIVELY IMPAIRED?NO :CORRECTIVE LENSES READINESS TO LEARN?YES LEARNING PREFERENCES?NO LEARNING CAPABILITIES PRESENT?YES EMOTIONAL BARRIERS?NO SPECIAL DEVICES?NO PRODUCTION CLOTH CUTTER NEEDED?NO PAIN CLINIC PFS, CLERGY, PUBLIC HEALTH REFERRALS PFS REFERRAL NEEDED?NO CLERGY REFERRAL NEEDED?NO PUBLIC HEALTH REFERRAL NEEDED?NO WAS THE PROVIDER NOTIFIED OF ANY PERTINENT INFO?YES HAS THE PATIENT BEEN EDUCATED REGARDING HIS/HER PLAN OF CARE?YES HAS THE PATIENT BEEN EDUCATED REGARDING PAIN, THE RISK FOR PAIN, THE IMPORTANCE OF EFFECTIVE PAIN MANAGEMENT, AND THE PAIN ASSESSMENT PROCESS?YES LATEX QUESTIONNAIRE LATEX ALLERGY : HAVE YOU EVER DEVELOPED ANY TYPE OF REACTION AFTER HANDLING LATEX PRODUCTS SUCH RUBBER GLOVES, CONDOMS, DIAPHRAGMS, BALLOONS, SOCKS, OR UNDERWEAR?NO LATEX ALLERGY : HAVE YOU EVER DEVELOPED ANY TYPE OF REACTION DURING OR AFTER DENTAL APPOINTMENT, VAGINAL/RECTAL EXAMINATION, SURGICAL PROCEDURE, OR ANY OTHER EXPOSURE?NO LATEX RISK : HAVE YOU EVER HAD ANY DIFFICULTY BREATHING OR HIVES AFTER EATING OR HANDLING ANY FRUITS, OR VEGETABLES; SUCH KIWI, BANANAS, STONE FRUITS, OR CHESTNUTSNO LATEX RISK : DO YOU HAVE A PREVIOUS PERSONAL HISTORY OF MORE THAN NINE SURGERIES, SPINA BIFIDA, OR REPEATED CATHERIZATIONS? NO LATEX RISK : ARE YOU FREQUENTLY EXPOSED TO LATEX PRODUCTS IN YOUR OCCUPATION?NO DATE ASKED : 10/21/2019 CAFFEINE CAFFEINE USE?YES HOW OFTEN AND HOW MUCH? 3-4 CUPS COFFEE PER WEEK ADVANCE DIRECTIVE ADVANCE DIRECTIVE DISCUSSED WITH PATIENT:YES PT DOES NOT HAVE ANY ADVANCED DIRECTIVES AND SHE DECLINES INFORMATION ON HCP AT THIS TIME CONFUCIANISM [id number] HINDU MARITAL STATUS: . ALCOHOL SCREENING DID YOU HAVE A DRINK CONTAINING ALCOHOL IN THE PAST YEAR?NO POINTS0 INTERPRETATIONNEGATIVE OCCUPATION: NOT WORKING. PRE PROCEDURE PHONE CALL COMPLETED 10/03/2019 1309 NLJ REVIEWED WITH PATIENT 10/21/2019 DS. HOSPITALIZATION/MAJOR DIAGNOSTIC PROCEDURE CHILDBIRTH X3 PNEUMONIA AGE 18 DEPRESSION 04/2014 DEPRESSION 2018 REVIEW OF SYSTEMS REVIEWED BY: PROVIDER: AYSE PATEL . CONSTITUTIONAL: ANY CHANGE IN YOUR MEDICAL CONDITION? NO . CHILLS NO . FEVER NO . INFECTION: DO YOU HAVE NEW INFECTIONS? NO . DO YOU HAVE HISTORY OF MRSA? NO . MUSCULOSKELETAL: ANY NEW PATTERNS OF PAIN OR NUMBNESS? NO . GASTROENTEROLOGY: ANY NEW CHANGE IN BOWEL CONTROL? NO . GENITOURINARY: ANY NEW CHANGE IN BLADDER CONTROL? NO . IS THERE A CHANCE YOU COULD BE ? NO . HEMATOLOGY/LYMPH: DO YOU TAKE ANY BLOOD THINNERS? (FOR EXAMPLE- COUMADIN, PLAVIX, AGGRENOX, PLATEL, PRADAXA, OR XARELTO) NO . WHEN WAS YOUR LAST DOSE? DATE: TIME: . NEUROLOGY: HAVE YOU FALLEN IN THE PAST 12 MONTHS? NO . ANY NEW EXTREMITY NUMBNESS OR WEAKNESS? NO . CARDIOLOGY: DO YOU HAVE A PACEMAKER OR DEFIBRILLATOR? NO . RESPIRATORY: HAVE YOU BEEN SICK IN THE PAST WEEK? NO . FEVER NO . FLU LIKE SYMPTOMS? NO . COUGH NO . INTEGUMENTARY: DO YOU HAVE ANY RASHES OR OPEN SORES? NO . ALLERGIC/IMMUNO: ARE YOU ALLERGIC TO IV DYE? NO . ANY NEW ALLERGIES? NO . PSYCHIATRIC: DO YOU HAVE THOUGHTS OF HURTING YOURSELF OR SOMEONE ELSE? NO . ARE YOU ABUSED, NEGLECTED, OR IN AN UNSAFE ENVIRONMENT? NO . ENDOCRINOLOGY: ARE YOU DIABETIC? NO . OTHER: DO YOU NEED ANY PRESCRIPTIONS? NO . IF YES, PLEASE LIST: ____ . ANY NEW PROBLEMS WITH YOUR MEDICATIONS? NO . WHEN DID YOU LAST EAT? ____ . WHEN DID YOU LAST DRINK? ____ . WHAT DID YOU LAST DRINK? ____ . NAME OF PERSON DRIVING YOU HOME? ____ . DO YOU HAVE ANY OTHER QUESTIONS OR CONCERNS PT STATES THAT SHE HAS A QUESTIONS REGARDING LAST SCHEDULED PROCEDURE., NEVER RECEIVED. PT HAD AN EPISODE LAST PROCEDURE, BECAME UNRESPONSIVE, FSBS 48, PT TRANSFERRED TO ED. . VITAL SIGNS WT 175.0 LBS, HT 59", BMI 35.34 INDEX, BP 122/61 MM HG, HR 79 /MIN, RR 18 /MIN, TEMP 97.6 F, SAFE IN ENV? (Y/N) Y, REVIEWED BY: MASON. EXAMINATION GENERAL EXAMINATION: GENERALNO ACUTE DISTRESS, WELL NOURISHED AND HYDRATED. PSYCHAPPROPRIATE MOOD AND AFFECT . LUNGS:CLEAR TO AUSCULTATION BILATERALLY, NO WHEEZES, RHONCHI, RALES. HEART:NO MURMURS, REGULAR RATE AND RHYTHM. BACK:POINT TENDER RIGHT LOWER LUMBAR, SURROUNDING SKIN SHOWS NO ERYTHEMA, ECCHYMOSIS, INCREASED WARMTH, AND/OR SKIN ERUPTIONS NOTED. POSITIVE MODIFIED SLR ON THE RIGHT SIDE.. MUSCULOSKELETAL:NOTABLE WEAKNESS OF THE RIGHT LOWER EXTREMITY , LEFT LOWER EXTREMITY WITHIN NORMAL LIMITS. . ASSESSMENTS INTERVERTEBRAL DISC DISORDER WITH RADICULOPATHY OF LUMBAR REGION - M51.16 (PRIMARY) TREATMENT INTERVERTEBRAL DISC DISORDER WITH RADICULOPATHY OF LUMBAR REGION START TIZANIDINE HCL TABLET, 2 MG, 1 TABLET NEEDED, ORALLY, TWO TIMES A DAY PRN, 30 DAYS, 60 NOTES: LESI L4-L5, L5-S1 WITH IV SEDATION. CLINICAL NOTES: 38 YEAR OLD FEMALE IN FOR CHRONIC PAIN FOLLOW-UP. DR. GASTELUM DISCUSSED PREVIOUS EPISODE WITH PATIENT DURING TODAY'S VISIT. PATIENT TO DISCUSS POSSIBLE PORT IMPLANTATION WITH HER PCP FOR BLOOD DRAWS. GIVEN PRESENTING SYMPTOMS, RESULTS OF PHYSICAL EXAMINATION, AND CONSULT WITH DR. GASTELUM RECOMMENDED LESI WITH IV SEDATION AND POST PROCEDURAL FOLLOW-UP. FURTHER RECOMMENDED STARTING TIZANIDINE 2 MG TWICE A DAY NEEDED. PATIENT HAS EXPRESSED UNDERSTANDING OF AND WAS IN AGREEMENT WITH TREATMENT PLAN. GIVEN TIME TO ASK QUESTIONS AND EXPRESS CONCERNS. PREVENTIVE MEDICINE PAIN CLINIC TEACHING: THE PATIENT HAS BEEN EDUCATED REGARDING PAIN, THE RISK FOR PAIN, THE IMPORTANCE OF EFFECTIVE PAIN MANAGEMENT, AND THE PAIN ASSESSMENT PROCESS. : REVIEWED AND DISCUSSED PRE-PROCEDURE TEACHING AND PLAN OF CARE WITH PT, PT ACKNOWLEDGED UNDERSTANDING. DS PROCEDURE CODES FA211 ESTABILISHED PATIENT [facility] FAC[facility] CHARGE DISPOSITION & COMMUNICATION FOLLOW UP POST PROCEDURE (REASON: LESI L4-L5, L5-S1 WITH IV SEDATION ) ELECTRONICALLY SIGNED BY GIN ALVAREZ ON 10/31/2019 AT 08:48 AM EST DISCLAIMER : THIS IS A VISIT SUMMARY EXTRACTED FROM THE [facility] CHART. IT IS NOT A COPY OF THE [facility] PROGRESS NOTE. BOLIVARD
== END ==
LOC: M PAIN 09:45
PROVIDERS: ATTEND Family Medicine
DX: M51.16 Intervertebral disc disorders with radiculopathy, lumbar region (principal); G89.29 Other chronic pain; Z86.59 Personal history of other mental and behavioral disorders; J45.909 Unspecified asthma, uncomplicated; G43.909 Migraine, unspecified, not intractable, without status migrainosus; Z88.6 Allergy status to analgesic agent; Z79.899 Other long term (current) drug therapy

== ENCOUNTER → 2020-01-24 | Outpatient (CLI) | payer MEDICARE, MEDICAID ==
--- NOTE | 2020-01-24 11:20 | REP ---
RIGHT SHOULDER, THREE VIEWS: There is no evidence of an acute fracture, dislocation or intrinsic bone disease. The joint spaces appear unremarkable. IMPRESSION: No fracture or dislocation. Electronically Signed by Kalin Rendon MD 01/24/2020 12:19 P
== END ==
LOC: M ADAMS 10:07
PROVIDERS: ATTEND Physician Assistant Medical
DX: M25.511 Pain in right shoulder (principal)

== ENCOUNTER → 2020-03-27 | Outpatient (CLI) | payer MEDICARE, MEDICAID ==
--- NOTE | 2020-03-29 00:04 | ECWPNPC ---
PATIENT NAME: KECIA JACKSON : 1980 GENDER: FEMALE VISIT DATE: 03/27/2020 DISCHARGE DATE: 03/27/20 0935 VISIT LOCKED DATE TIME: PHYSICIAN: CHLOÉ TAM RESOURCE: CHLOÉ TAM REASON FOR APPOINTMENT 1. POST PROC HISTORY OF PRESENT ILLNESS GENERAL: - 39-YEAR-OLD FEMALE IN FOR CHRONIC PAIN FOLLOW-UP. SHE RATES HER PAIN CURRENTLY AT A 5 OUT OF 10 AND DESCRIBES IT BURNING CONTINUOUS AND A NUMBNESS. PATIENT WAS SUPPOSED TO HAVE AN LESI PERFORMED HOWEVER IT WAS CANCELED DUE TO COVID. WE WILL DISCUSS ORDERING A NEW PROCEDURE TODAY. FALL RISK SCREENING: SCREENING :ONE FALL WITHOUT INJURY IN THE PAST YEAR PAIN SCREENING: PATIENT HAS A COMPLAINT OF ACUTE OR CHRONIC PAIN :YES LOCATION OF PAIN:LOW BACK RADIATES DOWN TO RIGHT LEG INTENSITY OF PAIN (SCALE OF 1 TO 10):5 WHAT DOES YOUR PAIN FEEL LIKE:BURNING, CONTINOUS, OTHER NUMBNESS DURATION:CONTINOUS, CONSTANT, ALL DAY, MAINLY DURING THE NIGHT PAIN IS INCREASED BY:ACTIVITIES, PROLONGED STANDING PAIN IS DECREASED BY:USE OF PAIN MEDICATIONS PAIN HAS INTERFERED WITH THE FOLLOWING:MOOD, HOUSEWORK, RELATIONSHIP WITH OTHERS, ENJOYMENT OF LIFE PLAN/GOALS/TREATMENT/INTERVENTION/FOLLOW UP:SEE PLAN NURSING NOTE: -. PAIN CENTER INTAKE QUESTIONS: DO YOU HAVE A HISTORY OF MRSA? :NO DO YOU TAKE A BLOOD THINNERS? :NO DO YOU HAVE ANY BLEEDING DISORDERS? :NO ANY NEW NUMBNESS OR WEAKNESS IN YOUR LEGS OR ARMS? :NO ANY PACEMAKER,DEFIBRILLATOR, OR DORSAL COLUMN STIMULATOR? :NO DO YOU HAVE ANY RASHES OR OPEN SORES? :NO ARE YOU ALLERGIC TO IV DYE? :NO ARE YOU DIABETIC? :NO ANY NEW PROBLEMS WITH YOUR MEDICATIONS? :NO HAVE YOU RECEIVED A VACCINE IN THE PAST 30 DAYS? :NO DO YOU PLAN TO RECEIVE A VACCINE IN THE NEXT 21 DAYS? :NO DO YOU NEED ANY PRESCRIPTION? :NO DO YOU TAKE ANY IMMUNOSUPPRESSIVE MEDICATIONS? :NO IS THERE A CHANCE YOU COULD BE ? :NO ARE YOU BREAST FEEDING? :NO CURRENT MEDICATIONS TAKING MULTIVITAMIN TABLET CHEWABLE ORALLY DAILY TAKING MIRALAX - PACKET 1 PACKET MIXED WITH 8 OUNCES OF FLUID ORALLY ONCE A DAY TAKING ACETAMINOPHEN 325 MG TABLET 3 TABLET NEEDED ORALLY 3 TIMES A DAY NEEDED TAKING TYLENOL EXTRA STRENGTH 500 MG TABLET 2 TABLETS NEEDED ORALLY EVERY 6 HRS TAKING VENTOLIN HFA 108 (90 BASE) MCG/ACT AEROSOL SOLUTION 2 PUFFS NEEDED INHALATION EVERY 4 HRS TAKING TIZANIDINE HCL 2 MG TABLET 1 TABLET NEEDED ORALLY TWO TIMES A DAY PRN TAKING GABAPENTIN 100 MG CAPSULE 1 CAPSULE ORALLY THREE TIMES DAILY TAKING ADDERALL XR 30 MG CAPSULE EXTENDED RELEASE 24 HOUR 1 CAPSULE IN THE MORNING ORALLY ONCE A DAY TAKING AMPHETAMINE-DEXTROAMPHET ER 20 MG CAPSULE EXTENDED RELEASE 24 HOUR 1 TAB ORALLY ONCE A DAY IN AFTERNOON NOT-TAKING TRAMADOL HCL 50 MG TABLET 1 - 2 TABLET NEEDED ORALLY EVERY 6 HRS PRN PAIN MDD=4, NOTES: 02/23/18@2300 MEDICATION LIST REVIEWED AND RECONCILED WITH THE PATIENT PAST MEDICAL HISTORY ADHD - DIAGNOSED IN [facility] ASTHMA - [facility] GERD RENAL LITHIASIS 11/21 MRI R HIP MILD TENDINOBURSITIS OCD/ANXIETY/PTSD - RESPONDED TO ZOLOFT IN THE PAST 09/22 MRI L SPINE, L5-S1 MILD DISC DEGENERATION, OTHERWISE NL. MORBID OBESITY CERVICALGIA SACROILIITIS MYALGIA MIGRAINES DEPRESSION RAYNAUD'S STOMACH ULCERS ALLERGIES NSAIDS: GIBLEED/ULCER - CONTRAINDICATION SURGICAL HISTORY C SECTION X 3 EGD 2012 COLPOSCOPY WITH AVELINO 09/11/14 LUMBAR SPINAL INJECTIONS FAMILY HISTORY FATHER: 54 YRS, MS, CVA, BRAIN ANEURYSM MOTHER: ALIVE 60 YRS, DEPRESSION, THYROID DISEASE, PRE-DM, HTN SIBLINGS: BROTHER -1/2 PATERNAL - STILLBORN 1 FULL BROTHER - UNK 1/2 PATERNAL SISTER - BACK ISSUES SON(S): ALIVE 17 YRS, AUTISM DAUGHTER(S): ALIVE, 1999 - ASTHMA, DEPRESSION, ASBERGER'S, ADHD, ANXIETY 2014 - HEALTHY 2 BROTHER(S) , 1 SISTER(S) . 1 SON(S) , 2 DAUGHTER(S) - HEALTHY. BROTHER - ASTHMA. SOCIAL HISTORY GENERAL: TOBACCO USE ARE YOU A:NONSMOKER VAPORNO E-CIGARETTENO LATEX QUESTIONNAIRE LATEX ALLERGY : HAVE YOU EVER DEVELOPED ANY TYPE OF REACTION AFTER HANDLING LATEX PRODUCTS SUCH RUBBER GLOVES, CONDOMS, DIAPHRAGMS, BALLOONS, SOCKS, OR UNDERWEAR?NO LATEX ALLERGY : HAVE YOU EVER DEVELOPED ANY TYPE OF REACTION DURING OR AFTER DENTAL APPOINTMENT, VAGINAL/RECTAL EXAMINATION, SURGICAL PROCEDURE, OR ANY OTHER EXPOSURE?NO LATEX RISK : HAVE YOU EVER HAD ANY DIFFICULTY BREATHING OR HIVES AFTER EATING OR HANDLING ANY FRUITS, OR VEGETABLES; SUCH KIWI, BANANAS, STONE FRUITS, OR CHESTNUTSNO LATEX RISK : DO YOU HAVE A PREVIOUS PERSONAL HISTORY OF MORE THAN NINE SURGERIES, SPINA BIFIDA, OR REPEATED CATHERIZATIONS? NO LATEX RISK : ARE YOU FREQUENTLY EXPOSED TO LATEX PRODUCTS IN YOUR OCCUPATION?NO DATE ASKED : 03/27/2020 ALCOHOL SCREENING DID YOU HAVE A DRINK CONTAINING ALCOHOL IN THE PAST YEAR?NO POINTS0 INTERPRETATIONNEGATIVE RECREATIONAL DRUG USE DRUG USE?NO PATIENT DENIES ABUSE OR MISSUSED OF ANY MEDICATION. PATIENT DENIES USE OF ANY ILLEGAL SUBSTANCE INCLUDING MARIJUANA OR COCAINE. CAFFEINE CAFFEINE USE?YES HOW OFTEN AND HOW MUCH? 3-4 CUPS COFFEE PER WEEK JEWISH [id number] MANDAEISM LANGUAGE LANGUAGES SPOKEN:DJIBOUTIAN EDUCATION LEVEL OF EDUCATION:NOT FINISHED COLLEGE LEARNING BARRIERS / SPECIAL NEEDS BARRIERS TO LEARNING?NO HEARING IMPAIRED?NO VISION IMPAIRED?YES COGNITIVELY IMPAIRED?NO :CORRECTIVE LENSES READINESS TO LEARN?YES LEARNING PREFERENCES?NO LEARNING CAPABILITIES PRESENT?YES EMOTIONAL BARRIERS?NO SPECIAL DEVICES?NO PLASTICS ENGINEER NEEDED?NO OCCUPATION: NOT WORKING. DIET: REGULAR. EXERCISE: NO REGULAR EXERCISE. MARITAL STATUS: . OTHERS AT HOME: CHILDREN, SPOUSE. PAIN CLINIC PFS, CLERGY, PUBLIC HEALTH REFERRALS PFS REFERRAL NEEDED?NO CLERGY REFERRAL NEEDED?NO PUBLIC HEALTH REFERRAL NEEDED?NO WAS THE PROVIDER NOTIFIED OF ANY PERTINENT INFO?YES HAS THE PATIENT BEEN EDUCATED REGARDING HIS/HER PLAN OF CARE?YES HAS THE PATIENT BEEN EDUCATED REGARDING PAIN, THE RISK FOR PAIN, THE IMPORTANCE OF EFFECTIVE PAIN MANAGEMENT, AND THE PAIN ASSESSMENT PROCESS?YES HOUSING: OWNS HOME. ADVANCE DIRECTIVE ADVANCE DIRECTIVE DISCUSSED WITH PATIENT:YES PT DOES NOT HAVE ANY ADVANCED DIRECTIVES AND SHE DECLINES INFORMATION ON HCP AT THIS TIME PRE PROCEDURE PHONE CALL COMPLETED 10/03/2019 1309 DENA REVIEWED WITH PATIENT 10/21/2019 DS. HOSPITALIZATION/MAJOR DIAGNOSTIC PROCEDURE CHILDBIRTH X3 PNEUMONIA AGE 18 DEPRESSION 04/2014 DEPRESSION 2018 REVIEW OF SYSTEMS CONSTITUTIONAL: ANY RECENT FEVER NO . CHILLS NO . WEIGHT CHANGE OF UNKNOWN REASONS NO . GASTROENTEROLOGY: NEW UNEXPLAINABLE CHANGES IN BOWEL CONTROL NO . CONSTIPATION NO . GENITOURINARY: ANY NEW CHANGE IN BLADDER CONTROL? NO . NEUROLOGY: NEW ONSET DIZZINESS OR NEUROLOGICAL CHANGES NOT MENTIONED NO . NEW NUMBNESS OR PAIN PATTERNS NOT MENTIONED AND PERTINENT TO TODAY'S VISIT NO . CARDIOLOGY: NEW CHEST PRESSURE NO . NEW CHEST PAIN NO . RESPIRATORY: UNEXPLAINABLE COUGH NO . NEW SHORTNESS OF BREATH NO . VITAL SIGNS WT 178.8 LBS, HT 59", BMI 36.11 INDEX, BP 134/73 MM HG, HR 72 /MIN, RR 18 /MIN, TEMP 97.6 F, OXYGEN SAT % 99%, SAFE IN ENV? (Y/N) Y, NA INITIALS SC 09:00NANA NERISSA ACOUSTICAL CARPENTER. EXAMINATION GENERAL EXAMINATION: GENERALNO ACUTE DISTRESS, WELL NOURISHED AND HYDRATED. PSYCHAPPROPRIATE MOOD AND AFFECT . LUNGS:CLEAR TO AUSCULTATION BILATERALLY, NO WHEEZES, RHONCHI, RALES. HEART:NO MURMURS, REGULAR RATE AND RHYTHM. BACK:POINT TENDER RIGHT LOW BACK, SURROUNDING SKIN SHOWS NO ERYTHEMA, ECCHYMOSIS, INCREASED WARMTH, AND/OR SKIN ERUPTIONS NOTED. POSITIVE MODIFIED SLR RIGHT SIDE . ASSESSMENTS INTERVERTEBRAL DISC DISORDERS WITH RADICULOPATHY, LUMBOSACRAL REGION - M51.17 (PRIMARY) TREATMENT INTERVERTEBRAL DISC DISORDERS WITH RADICULOPATHY, LUMBOSACRAL REGION NOTES: LESI L4-L5 L5-S1. CLINICAL NOTES: 39-YEAR-OLD FEMALE IN FOR CHRONIC PAIN FOLLOW-UP. GIVEN PRESENTING SYMPTOMS RECOMMEND LESI L4-L5 L5-S1 WITH POST PROCEDURAL FOLLOW-UP. FURTHER RECOMMENDED INCREASING GABAPENTIN TO 300 MG 3 TIMES A DAY. PATIENT HAS EXPRESSED UNDERSTANDING OF AND WAS IN AGREEMENT WITH TREATMENT PLAN. GIVEN TIME TO ASK QUESTIONS AND EXPRESS CONCERNS. PROCEDURE CODES FA211 ESTABILISHED PATIENT [facility] FACILITY CHARGE DISPOSITION & COMMUNICATION FOLLOW UP POST PROCEDURE (REASON: LESI L4-L5 L5-S1) ELECTRONICALLY SIGNED BY GIN ALVAREZ ON 03/28/2020 AT 08:10 AM EDT DISCLAIMER : THIS IS A VISIT SUMMARY EXTRACTED FROM THE [employer] CHART. IT IS NOT A COPY OF THE [employer] PROGRESS NOTE. MTDD
== END ==
LOC: M PAIN 09:00
PROVIDERS: ATTEND Family Medicine
DX: M51.17 Intervertebral disc disorders with radiculopathy, lumbosacral region (principal)

== ENCOUNTER → 2020-04-19 | Outpatient (POV) | payer MEDICARE, MEDICAID ==
[~2020-04-19] MED LIST changes: +BUPIVACAINE HCL 0.25% 10ML VIAL ONE; +BUPIVACAINE HCL 0.25% 30ML VIAL ONE; +TRIAMCINOLONE ACETONIDE SUSP 40 MG/ML VIAL (J3301) ONE; +diazePAM 5 MG TAB ONE
== END ==
LOC: M PAIN 10:00
PROVIDERS: ATTEND Anesthesiology
DX: M79.18 Myalgia, other site (principal)

== ENCOUNTER → 2020-06-26 | Outpatient (CLI) | payer MEDICARE, MEDICAID ==
[~2020-06-26] MED LIST changes: -BUPIVACAINE HCL 0.25% 10ML VIAL ONE; -BUPIVACAINE HCL 0.25% 30ML VIAL ONE; -TRIAMCINOLONE ACETONIDE SUSP 40 MG/ML VIAL (J3301) ONE; -diazePAM 5 MG TAB ONE
--- NOTE | 2020-06-27 15:39 | ECWPNPC ---
PATIENT NAME: KECIA JACKSON : 1980 GENDER: FEMALE VISIT DATE: 06/26/2020 DISCHARGE DATE: 06/26/20 1212 VISIT LOCKED DATE TIME: PHYSICIAN: CHLOÉ TAM PHYSICIAN PAGER NO: ACTIVE RESOURCE: CHLOÉ TAM REASON FOR APPOINTMENT 1. POST TPI HISTORY OF PRESENT ILLNESS GENERAL: 39-YEAR-OLD FEMALE IN FOR POST TRIGGER POINT INJECTION FOLLOW-UP. SHE FEELS THE PROCEDURE WAS UNSUCCESSFUL. SHE RATES HER PAIN CURRENTLY AT A 5 OUT OF 10. -. FALL RISK SCREENING: SCREENING :NO FALLS REPORTED IN THE LAST YEAR PAIN SCREENING: PATIENT HAS A COMPLAINT OF ACUTE OR CHRONIC PAIN :YES LOCATION OF PAIN:LOW BACK, LEG(S) BILATERAL LEGS INTENSITY OF PAIN (SCALE OF 1 TO 10):5 WHAT DOES YOUR PAIN FEEL LIKE:SHARP DURATION:CONSTANT, MAINLY DURING THE DAY, AWAKENS FROM SLEEP PAIN IS INCREASED BY:ACTIVITIES, PROLONGED STANDING PAIN IS DECREASED BY:OTHERS HEAT HELPS TO REDUCE THE PAIN LEVEL. NURSING NOTE: -. PAIN CENTER INTAKE QUESTIONS: DO YOU HAVE A HISTORY OF MRSA? :NO DO YOU TAKE A BLOOD THINNERS? :NO DO YOU HAVE ANY BLEEDING DISORDERS? :NO ANY NEW NUMBNESS OR WEAKNESS IN YOUR LEGS OR ARMS? :YES LEFT ARM ANY PACEMAKER,DEFIBRILLATOR, OR DORSAL COLUMN STIMULATOR? :NO DO YOU HAVE ANY RASHES OR OPEN SORES? :NO ARE YOU ALLERGIC TO IV DYE? :NO ARE YOU DIABETIC? :NO ANY NEW PROBLEMS WITH YOUR MEDICATIONS? :NO HAVE YOU RECEIVED A VACCINE IN THE PAST 30 DAYS? :NO DO YOU PLAN TO RECEIVE A VACCINE IN THE NEXT 21 DAYS? :NO DO YOU NEED ANY PRESCRIPTION? :YES DO YOU TAKE ANY IMMUNOSUPPRESSIVE MEDICATIONS? :NO IS THERE A CHANCE YOU COULD BE ? :NO ARE YOU BREAST FEEDING? :NO CURRENT MEDICATIONS TAKING MULTIVITAMIN TABLET CHEWABLE ORALLY DAILY TAKING MIRALAX - PACKET 1 PACKET MIXED WITH 8 OUNCES OF FLUID ORALLY ONCE A DAY TAKING ACETAMINOPHEN 325 MG TABLET 3 TABLET NEEDED ORALLY 3 TIMES A DAY NEEDED TAKING TYLENOL EXTRA STRENGTH 500 MG TABLET 2 TABLETS NEEDED ORALLY EVERY 6 HRS TAKING VENTOLIN HFA 108 (90 BASE) MCG/ACT AEROSOL SOLUTION 2 PUFFS NEEDED INHALATION EVERY 4 HRS TAKING TIZANIDINE HCL 2 MG TABLET 1 TABLET NEEDED ORALLY TWO TIMES A DAY PRN TAKING GABAPENTIN 100 MG CAPSULE 1 CAPSULE ORALLY THREE TIMES DAILY TAKING ADDERALL XR 30 MG CAPSULE EXTENDED RELEASE 24 HOUR 1 CAPSULE IN THE MORNING ORALLY ONCE A DAY TAKING AMPHETAMINE-DEXTROAMPHET ER 20 MG CAPSULE EXTENDED RELEASE 24 HOUR 1 TAB ORALLY ONCE A DAY IN AFTERNOON NOT-TAKING TRAMADOL HCL 50 MG TABLET 1 - 2 TABLET NEEDED ORALLY EVERY 6 HRS PRN PAIN MDD=4, NOTES: 02/23/18@2300 MEDICATION LIST REVIEWED AND RECONCILED WITH THE PATIENT PAST MEDICAL HISTORY ADHD - DIAGNOSED IN [facility] ASTHMA - [facility] GERD RENAL LITHIASIS 11/21 MRI R HIP MILD TENDINOBURSITIS OCD/ANXIETY/PTSD - RESPONDED TO ZOLOFT IN THE PAST 09/22 MRI L SPINE, L5-S1 MILD DISC DEGENERATION, OTHERWISE NL. MORBID OBESITY CERVICALGIA SACROILIITIS MYALGIA MIGRAINES DEPRESSION RAYNAUD'S STOMACH ULCERS ALLERGIES NSAIDS: GIBLEED/ULCER - CONTRAINDICATION SURGICAL HISTORY C SECTION X 3 EGD 2012 COLPOSCOPY WITH AVELINO 09/11/14 LUMBAR SPINAL INJECTIONS FAMILY HISTORY FATHER: 54 YRS, MS, CVA, BRAIN ANEURYSM MOTHER: ALIVE 60 YRS, DEPRESSION, THYROID DISEASE, PRE-DM, HTN SIBLINGS: BROTHER -1/2 PATERNAL - STILLBORN 1 FULL BROTHER - UNK 1/2 PATERNAL SISTER - BACK ISSUES SON(S): ALIVE 17 YRS, AUTISM DAUGHTER(S): ALIVE, 1999 - ASTHMA, DEPRESSION, ASBERGER'S, ADHD, ANXIETY 2014 - HEALTHY 2 BROTHER(S) , 1 SISTER(S) . 1 SON(S) , 2 DAUGHTER(S) - HEALTHY. BROTHER - ASTHMA. SOCIAL HISTORY GENERAL: TOBACCO USE ARE YOU A:NONSMOKER VAPORNO E-CIGARETTENO LATEX QUESTIONNAIRE LATEX ALLERGY : HAVE YOU EVER DEVELOPED ANY TYPE OF REACTION AFTER HANDLING LATEX PRODUCTS SUCH RUBBER GLOVES, CONDOMS, DIAPHRAGMS, BALLOONS, SOCKS, OR UNDERWEAR?NO LATEX ALLERGY : HAVE YOU EVER DEVELOPED ANY TYPE OF REACTION DURING OR AFTER DENTAL APPOINTMENT, VAGINAL/RECTAL EXAMINATION, SURGICAL PROCEDURE, OR ANY OTHER EXPOSURE?NO LATEX RISK : HAVE YOU EVER HAD ANY DIFFICULTY BREATHING OR HIVES AFTER EATING OR HANDLING ANY FRUITS, OR VEGETABLES; SUCH KIWI, BANANAS, STONE FRUITS, OR CHESTNUTSNO LATEX RISK : DO YOU HAVE A PREVIOUS PERSONAL HISTORY OF MORE THAN NINE SURGERIES, SPINA BIFIDA, OR REPEATED CATHERIZATIONS? NO LATEX RISK : ARE YOU FREQUENTLY EXPOSED TO LATEX PRODUCTS IN YOUR OCCUPATION?NO DATE ASKED : 06/26/2020 ALCOHOL SCREENING DID YOU HAVE A DRINK CONTAINING ALCOHOL IN THE PAST YEAR?NO POINTS0 INTERPRETATIONNEGATIVE RECREATIONAL DRUG USE DRUG USE?NO PATIENT DENIES ABUSE OR MISSUSED OF ANY MEDICATION. PATIENT DENIES USE OF ANY ILLEGAL SUBSTANCE INCLUDING MARIJUANA OR COCAINE. CAFFEINE CAFFEINE USE?YES HOW OFTEN AND HOW MUCH? 3-4 CUPS COFFEE PER WEEK CONFUCIANISM [id number] YAZDANISM LANGUAGE LANGUAGES SPOKEN:YI EDUCATION LEVEL OF EDUCATION:NOT FINISHED COLLEGE LEARNING BARRIERS / SPECIAL NEEDS BARRIERS TO LEARNING?NO HEARING IMPAIRED?NO VISION IMPAIRED?YES COGNITIVELY IMPAIRED?NO :CORRECTIVE LENSES READINESS TO LEARN?YES LEARNING PREFERENCES?NO LEARNING CAPABILITIES PRESENT?YES EMOTIONAL BARRIERS?NO SPECIAL DEVICES?NO POLYGRAPH TECHNICIAN NEEDED?NO DOMESTIC VIOLENCE DO YOU FEEL SAFE IN YOUR ENVIRONMENT?YES OCCUPATION: NOT WORKING. DIET: REGULAR. EXERCISE: NO REGULAR EXERCISE. MARITAL STATUS: . OTHERS AT HOME: CHILDREN, SPOUSE. PAIN CLINIC PFS, CLERGY, PUBLIC HEALTH REFERRALS PFS REFERRAL NEEDED?NO CLERGY REFERRAL NEEDED?NO PUBLIC HEALTH REFERRAL NEEDED?NO WAS THE PROVIDER NOTIFIED OF ANY PERTINENT INFO?YES HAS THE PATIENT BEEN EDUCATED REGARDING HIS/HER PLAN OF CARE?YES HAS THE PATIENT BEEN EDUCATED REGARDING PAIN, THE RISK FOR PAIN, THE IMPORTANCE OF EFFECTIVE PAIN MANAGEMENT, AND THE PAIN ASSESSMENT PROCESS?YES HOUSING: OWNS HOME. ADVANCE DIRECTIVE ADVANCE DIRECTIVE DISCUSSED WITH PATIENT:YES PT DOES NOT HAVE ANY ADVANCED DIRECTIVES AND SHE DECLINES INFORMATION ON HCP AT THIS TIME PRE PROCEDURE PHONE CALL COMPLETED 10/03/2019 1309 NL REVIEWED WITH PATIENT 10/21/2019 DS. HOSPITALIZATION/MAJOR DIAGNOSTIC PROCEDURE CHILDBIRTH X3 PNEUMONIA AGE 18 DEPRESSION 04/2014 DEPRESSION 2017 REVIEW OF SYSTEMS CONSTITUTIONAL: ANY RECENT FEVER NO . CHILLS NO . WEIGHT CHANGE OF UNKNOWN REASONS NO . GASTROENTEROLOGY: NEW UNEXPLAINABLE CHANGES IN BOWEL CONTROL NO . CONSTIPATION NO . GENITOURINARY: ANY NEW CHANGE IN BLADDER CONTROL? NO . NEUROLOGY: NEW ONSET DIZZINESS OR NEUROLOGICAL CHANGES NOT MENTIONED NO . NEW NUMBNESS OR PAIN PATTERNS NOT MENTIONED AND PERTINENT TO TODAY'S VISIT NO . CARDIOLOGY: NEW CHEST PRESSURE NO . NEW CHEST PAIN NO . RESPIRATORY: UNEXPLAINABLE COUGH NO . NEW SHORTNESS OF BREATH NO . VITAL SIGNS WT 183.4 LBS, HT 59", BMI 37.04 INDEX, BP 136/63 MM HG, HR 74 /MIN, RR 18 /MIN, TEMP 97.8 F, OXYGEN SAT % 94%, SAFE IN ENV? (Y/N) YES, NA INITIALS AW 1121, REVIEWED BY: DEEPA. ASSESSMENTS MYALGIA, OTHER SITE - M79.18 (PRIMARY) INTERVERTEBRAL DISC DISORDER WITH RADICULOPATHY OF LUMBAR REGION - M51.16 TREATMENT MYALGIA, OTHER SITE [facility] MRI SPINE, L.S. WITHOUT [id number] CLINICAL NOTES: 39-YEAR-OLD FEMALE FOR POST TPI FOLLOW-UP. SHE DOES ADMIT THAT DR. GASTELUM WANTS HER TO GET UPDATED EMG STUDIES AND MRIS PRIOR TO DOING ANY PROCEDURES. INFORMED PATIENT THIS PUBLIC SPEAKING TEACHER WOULD CHECK ON THE STATUS OF MRIS AND REFERRAL FOR EMG STUDIES AND THAT WE WOULD FOLLOW-UP STATUS POST IMAGING STUDIES. PATIENT HAS EXPRESSED UNDERSTANDING OF AND WAS IN AGREEMENT WITH TREATMENT PLAN. GIVEN TIME TO ASK QUESTIONS AND EXPRESS CONCERNS. [facility]:EMG STUDIES PREVENTIVE MEDICINE PAIN CLINIC TEACHING: THE PATIENT HAS BEEN EDUCATED REGARDING PAIN, THE RISK FOR PAIN, THE IMPORTANCE OF EFFECTIVE PAIN MANAGEMENT, AND THE PAIN ASSESSMENT PROCESS. : DISCUSSED CARE PLAN WITH PATIENT, PATIENT VERBALIZES UNDERSTANDING. DISPOSITION & COMMUNICATION FOLLOW UP POST IMAGING, AND EMG STUDIES ELECTRONICALLY SIGNED BY GIN ALVAREZ ON 06/27/2020 AT 03:06 PM EDT DISCLAIMER : THIS IS A VISIT SUMMARY EXTRACTED FROM THE [employer] CHART. IT IS NOT A COPY OF THE [employer] PROGRESS NOTE. JARRED
== END ==
LOC: M PAIN 11:00
PROVIDERS: ATTEND Family Medicine
DX: M79.18 Myalgia, other site (principal); M51.16 Intervertebral disc disorders with radiculopathy, lumbar region; J45.909 Unspecified asthma, uncomplicated; G43.909 Migraine, unspecified, not intractable, without status migrainosus; Z86.59 Personal history of other mental and behavioral disorders; Z88.6 Allergy status to analgesic agent; Z79.899 Other long term (current) drug therapy

== ENCOUNTER → 2020-09-05 | Outpatient (CLI) | payer MEDICARE, MEDICAID ==
--- NOTE | 2020-09-05 15:33 | REPVR ---
PROCEDURE INFORMATION: Exam: MR Lumbar Spine Without Contrast. Exam date and time: 09/05/2020 3:01 PM Age: 39 years old Clinical indication: Low back pain; Additional info: M51.16 disc disorder lumbar TECHNIQUE: Imaging protocol: Multiplanar magnetic resonance images of the lumbar spine without contrast. COMPARISON: MRI-Spine, L.S. without con 09/28/2015 4:18 PM FINDINGS: Vertebrae: Normal alignment. No acute fracture in the lumbar spine. Spinal cord: The conus medullaris is normal appearance at the T12-L1 level. Discs/Spinal canal/Neural foramina: There is no disc space narrowing in the lower thoracic or lumbar spine although there is decreased signal in the L5-S1 disc. There is no spinal canal stenosis or neural foraminal narrowing in the lumbar spine. No disc herniation. Soft tissues: Unremarkable. IMPRESSION: No evidence of neural compromise in the lumbar spine. Electronically signed by: Debo Quesada On 09/05/2020 15:33:54 PM
== END ==
LOC: M RAD 14:31
PROVIDERS: ATTEND Family Medicine
DX: M51.16 Intervertebral disc disorders with radiculopathy, lumbar region (principal)

== ENCOUNTER → 2020-09-17 | Outpatient (CLI) | payer MEDICARE, MEDICAID ==
--- NOTE | 2020-09-20 03:06 | ECWPNPC ---
PATIENT NAME: KECIA JACKSON : 1980 GENDER: FEMALE VISIT DATE: 09/17/2020 DISCHARGE DATE: 09/17/20 1030 VISIT LOCKED DATE TIME: PHYSICIAN: CHLOÉ TAM PHYSICIAN PAGER NO: ACTIVE RESOURCE: CHLOÉ TAM REASON FOR APPOINTMENT 1. MRI REVIEW HISTORY OF PRESENT ILLNESS DEPRESSION SCREENING: PHQ-2 (2015 EDITION) LITTLE INTEREST OR PLEASURE IN DOING THINGS?NOT AT ALL FEELING DOWN, DEPRESSED, OR HOPELESS?NOT AT ALL TOTAL SCORE0 39-YEAR-OLD FEMALE IN FOR CHRONIC PAIN FOLLOW-UP. PATIENT HAD RECENT MRI WHICH WILL BE REVIEWED WITH PATIENT TODAY. SHE RATES HER PAIN CURRENTLY AT A 5 OUT OF 10 AND DESCRIBES IT THROBBING, AND SHOOTING. GENERAL: -. FALL RISK SCREENING: SCREENING :NO FALLS REPORTED IN THE LAST YEAR PAIN SCREENING: PATIENT HAS A COMPLAINT OF ACUTE OR CHRONIC PAIN :YES LOCATION OF PAIN:OTHER: TAILBONE, PELVIS, LOW BACK, HIP INTENSITY OF PAIN (SCALE OF 1 TO 10):5 WHAT DOES YOUR PAIN FEEL LIKE:THROBBING, SHOOTING, OTHER COLD SENSATION AND SPASMS DURATION:CONSTANT, STEADY, AWAKENS FROM SLEEP PAIN IS INCREASED BY:ACTIVITIES, PROLONGED STANDING PAIN IS DECREASED BY:USE OF PAIN MEDICATIONS, OTHERS BIOFREEZE, OTC TENS UNIT TREATMENT/MEDICATIONS USED TO MANAGE PAIN:OTC PAIN RELIEVERS TIZANIDINE, EXTRA STRENGTH TYLENOL LEVEL OF RELIEF FROM PAIN TREATMENTS IN THE PAST:25% NURSING NOTE: -. PAIN CENTER INTAKE QUESTIONS: DO YOU HAVE A HISTORY OF MRSA? :NO DO YOU TAKE A BLOOD THINNERS? :NO DO YOU HAVE ANY BLEEDING DISORDERS? :NO ANY NEW NUMBNESS OR WEAKNESS IN YOUR LEGS OR ARMS? :NO ANY PACEMAKER,DEFIBRILLATOR, OR DORSAL COLUMN STIMULATOR? :NO DO YOU HAVE ANY RASHES OR OPEN SORES? :NO ARE YOU ALLERGIC TO IV DYE? :NO ARE YOU DIABETIC? :NO ANY NEW PROBLEMS WITH YOUR MEDICATIONS? :NO HAVE YOU RECEIVED A VACCINE IN THE PAST 30 DAYS? :NO DO YOU PLAN TO RECEIVE A VACCINE IN THE NEXT 21 DAYS? :YES MEAY BE INTERESTED IN COVID VACCINATION IF IT BECOMES AVAILABLE. DO YOU NEED ANY PRESCRIPTION? :YES TIZANIDINE DO YOU TAKE ANY IMMUNOSUPPRESSIVE MEDICATIONS? :NO IS THERE A CHANCE YOU COULD BE ? :NO ARE YOU BREAST FEEDING? :NO CURRENT MEDICATIONS TAKING MULTIVITAMIN TABLET CHEWABLE ORALLY DAILY TAKING MIRALAX - PACKET 1 PACKET MIXED WITH 8 OUNCES OF FLUID ORALLY ONCE A DAY TAKING ACETAMINOPHEN 325 MG TABLET 3 TABLET NEEDED ORALLY 3 TIMES A DAY NEEDED TAKING TYLENOL EXTRA STRENGTH 500 MG TABLET 2 TABLETS NEEDED ORALLY EVERY 6 HRS TAKING VENTOLIN HFA 108 (90 BASE) MCG/ACT AEROSOL SOLUTION 2 PUFFS NEEDED INHALATION EVERY 4 HRS TAKING TIZANIDINE HCL 2 MG TABLET 1 TABLET NEEDED ORALLY TWO TIMES A DAY PRN TAKING DULOXETINE HCL 30 MG CAPSULE DELAYED RELEASE PARTICLES 1 CAPSULE ORALLY ONCE A DAY TAKING AMPHETAMINE-DEXTROAMPHET ER 20 MG CAPSULE EXTENDED RELEASE 24 HOUR 1 TAB ORALLY ONCE A DAY IN AFTERNOON TAKING ADDERALL XR 30 MG CAPSULE EXTENDED RELEASE 24 HOUR 1 CAPSULE IN THE MORNING ORALLY ONCE A DAY NOT-TAKING GABAPENTIN 100 MG CAPSULE 1 CAPSULE ORALLY BEFORE BEDTIME NOT-TAKING TRAMADOL HCL 50 MG TABLET 1 - 2 TABLET NEEDED ORALLY EVERY 6 HRS PRN PAIN MDD=4, NOTES: 02/23/18@2300 MEDICATION LIST REVIEWED AND RECONCILED WITH THE PATIENT PAST MEDICAL HISTORY ADHD - DIAGNOSED IN [facility] - [facility] GERD RENAL LITHIASIS 11/21 MRI R HIP MILD TENDINOBURSITIS OCD/ANXIETY/PTSD - RESPONDED TO ZOLOFT IN THE PAST 09/22 MRI L SPINE, L5-S1 MILD DISC DEGENERATION, OTHERWISE NL. MORBID OBESITY CERVICALGIA SACROILIITIS MYALGIA MIGRAINES DEPRESSION RAYNAUD'S STOMACH ULCERS ALLERGIES NSAIDS: GIBLEED/ULCER - CONTRAINDICATION SURGICAL HISTORY C SECTION X 3 EGD 2011 COLPOSCOPY WITH AVELINO 09/11/14 LUMBAR SPINAL INJECTIONS FAMILY HISTORY FATHER: 54 YRS, MS, CVA, BRAIN ANEURYSM MOTHER: ALIVE 61 YRS, DEPRESSION, THYROID DISEASE, PRE-DM, HTN SIBLINGS: BROTHER -1/2 PATERNAL - STILLBORN 1 FULL BROTHER - UNK 1/2 PATERNAL SISTER - BACK ISSUES SON(S): ALIVE 18 YRS, AUTISM DAUGHTER(S): ALIVE, 1999 - ASTHMA, DEPRESSION, ASBERGER'S, ADHD, ANXIETY 2014 - HEALTHY 2 BROTHER(S) , 1 SISTER(S) . 1 SON(S) , 2 DAUGHTER(S) - HEALTHY. BROTHER - ASTHMA. SOCIAL HISTORY GENERAL: TOBACCO USE ARE YOU A:NONSMOKER VAPORNO E-CIGARETTENO LATEX QUESTIONNAIRE LATEX ALLERGY : HAVE YOU EVER DEVELOPED ANY TYPE OF REACTION AFTER HANDLING LATEX PRODUCTS SUCH RUBBER GLOVES, CONDOMS, DIAPHRAGMS, BALLOONS, SOCKS, OR UNDERWEAR?NO LATEX ALLERGY : HAVE YOU EVER DEVELOPED ANY TYPE OF REACTION DURING OR AFTER DENTAL APPOINTMENT, VAGINAL/RECTAL EXAMINATION, SURGICAL PROCEDURE, OR ANY OTHER EXPOSURE?NO DATE ASKED : 08/07/2020 LATEX RISK : HAVE YOU EVER HAD ANY DIFFICULTY BREATHING OR HIVES AFTER EATING OR HANDLING ANY FRUITS, OR VEGETABLES; SUCH KIWI, BANANAS, STONE FRUITS, OR CHESTNUTSNO LATEX RISK : DO YOU HAVE A PREVIOUS PERSONAL HISTORY OF MORE THAN NINE SURGERIES, SPINA BIFIDA, OR REPEATED CATHERIZATIONS? NO LATEX RISK : ARE YOU FREQUENTLY EXPOSED TO LATEX PRODUCTS IN YOUR OCCUPATION?NO ALCOHOL SCREENING DID YOU HAVE A DRINK CONTAINING ALCOHOL IN THE PAST YEAR?NO POINTS0 INTERPRETATIONNEGATIVE RECREATIONAL DRUG USE DRUG USE?NO PATIENT DENIES ABUSE OR MISSUSED OF ANY MEDICATION. PATIENT DENIES USE OF ANY ILLEGAL SUBSTANCE INCLUDING MARIJUANA OR COCAINE. CAFFEINE CAFFEINE USE?YES HOW OFTEN AND HOW MUCH? 3-4 CUPS COFFEE PER WEEK MU-ISM [id number] TENRIISM LANGUAGE LANGUAGES SPOKEN:MACEDONIAN EDUCATION LEVEL OF EDUCATION:NOT FINISHED COLLEGE LEARNING BARRIERS / SPECIAL NEEDS BARRIERS TO LEARNING?NO HEARING IMPAIRED?NO VISION IMPAIRED?YES COGNITIVELY IMPAIRED?NO :CORRECTIVE LENSES READINESS TO LEARN?YES LEARNING PREFERENCES?NO LEARNING CAPABILITIES PRESENT?YES EMOTIONAL BARRIERS?NO SPECIAL DEVICES?NO GUIDANCE SECRETARY NEEDED?NO DOMESTIC VIOLENCE DO YOU FEEL SAFE IN YOUR ENVIRONMENT?YES OCCUPATION: NOT WORKING. DIET: REGULAR. EXERCISE: NO REGULAR EXERCISE. MARITAL STATUS: . OTHERS AT HOME: CHILDREN, SPOUSE. PAIN CLINIC PFS, CLERGY, PUBLIC HEALTH REFERRALS PFS REFERRAL NEEDED?NO CLERGY REFERRAL NEEDED?NO PUBLIC HEALTH REFERRAL NEEDED?NO WAS THE PROVIDER NOTIFIED OF ANY PERTINENT INFO?YES HAS THE PATIENT BEEN EDUCATED REGARDING HIS/HER PLAN OF CARE?YES HAS THE PATIENT BEEN EDUCATED REGARDING PAIN, THE RISK FOR PAIN, THE IMPORTANCE OF EFFECTIVE PAIN MANAGEMENT, AND THE PAIN ASSESSMENT PROCESS?YES HOUSING: OWNS HOME. ADVANCE DIRECTIVE ADVANCE DIRECTIVE DISCUSSED WITH PATIENT:YES PT DOES NOT HAVE ANY ADVANCED DIRECTIVES. PATIENT GIVEN INFORMATION ON HCP. PATIENT DECLINED ASSISTANCE WITH THE FORM. 09/17/20 PRE PROCEDURE PHONE CALL COMPLETED 10/03/2019 1303 NLJ REVIEWED WITH PATIENT 10/21/2019 DS. HOSPITALIZATION/MAJOR DIAGNOSTIC PROCEDURE CHILDBIRTH X3 PNEUMONIA AGE 18 DEPRESSION 04/2014 DEPRESSION 2017 REVIEW OF SYSTEMS CONSTITUTIONAL: ANY RECENT FEVER NO . CHILLS NO . WEIGHT CHANGE OF UNKNOWN REASONS NO . GASTROENTEROLOGY: NEW UNEXPLAINABLE CHANGES IN BOWEL CONTROL NO . CONSTIPATION NO . GENITOURINARY: ANY NEW CHANGE IN BLADDER CONTROL? NO . NEUROLOGY: NEW ONSET DIZZINESS OR NEUROLOGICAL CHANGES NOT MENTIONED NO . NEW NUMBNESS OR PAIN PATTERNS NOT MENTIONED AND PERTINENT TO TODAY'S VISIT NO . CARDIOLOGY: NEW CHEST PRESSURE NO . NEW CHEST PAIN NO . RESPIRATORY: UNEXPLAINABLE COUGH NO . NEW SHORTNESS OF BREATH NO . VITAL SIGNS WT 183 LBS, HT 59", BMI 36.96 INDEX, BP 140/63 MM HG, HR 69 /MIN, RR 18 /MIN, TEMP 96.4 F, OXYGEN SAT % 95%, SAFE IN ENV? (Y/N) YES, NA INITIALS SC 09:13, REVIEWED BY: ADWOA UGARTE MA. EXAMINATION GENERAL EXAMINATION: GENERALNO ACUTE DISTRESS, WELL NOURISHED AND HYDRATED. PSYCHAPPROPRIATE MOOD AND AFFECT . LUNGS:CLEAR TO AUSCULTATION BILATERALLY, NO WHEEZES, RHONCHI, RALES. HEART:NO MURMURS, REGULAR RATE AND RHYTHM. BACK:POINT TENDER L4-L5, SURROUNDING SKIN SHOWS NO ERYTHEMA, ECCHYMOSIS, INCREASED WARMTH, AND/OR SKIN ERUPTIONS NOTED. POSITIVE MODIFIED SLR RIGHT SIDE . ASSESSMENTS INTERVERTEBRAL DISC DISORDERS WITH RADICULOPATHY, LUMBOSACRAL REGION - M51.17 (PRIMARY) TREATMENT INTERVERTEBRAL DISC DISORDERS WITH RADICULOPATHY, LUMBOSACRAL REGION NOTES: 39-YEAR-OLD FEMALE IN FOR CHRONIC PAIN FOLLOW-UP. GIVEN PRESENTING SYMPTOMS AND RESULTS OF PHYSICAL EXAMINATION INFORMED PATIENT THIS SENIOR BACK END JAVA DEVELOPER WOULD DISCUSS CASE WITH DR. GASTELUM TO DETERMINE WHAT APPROPRIATE PROCEDURE SHOULD BE ORDERED. WE'LL GIVE PATIENT INFORMATION TO ADD REP TO DISCUSS POSSIBLE DCS TRIAL. PATIENT HAS EXPRESSED UNDERSTANDING OF AND WAS IN AGREEMENT WITH TREATMENT PLAN. GIVEN TIME TO ASK QUESTIONS AND EXPRESS CONCERNS. PRINTED AND REVIEWED PRE-PROCEDURE INSTRUCTIONS WITH PATIENT. PATIENT VERBALIZED UNDERSTANDING. BRYANT VARGAS 09/17/20. PROCEDURE CODES FA211 ESTABILISHED PATIENT [facility] CHARGE DISPOSITION & COMMUNICATION FOLLOW UP DR. GASTELUM (REASON: BACK PAIN WITH RADICULAR SYMPTOMS) ELECTRONICALLY SIGNED BY GIN ALVAREZ ON 09/19/2020 AT 09:59 AM EST DISCLAIMER : THIS IS A VISIT SUMMARY EXTRACTED FROM THE [employer] CHART. IT IS NOT A COPY OF THE [employer] PROGRESS NOTE. MTDD
== END ==
LOC: M PAIN 09:00
PROVIDERS: ATTEND Family Medicine
DX: M51.17 Intervertebral disc disorders with radiculopathy, lumbosacral region (principal); G89.29 Other chronic pain; J45.909 Unspecified asthma, uncomplicated; M79.10 Myalgia, unspecified site; G43.909 Migraine, unspecified, not intractable, without status migrainosus; Z86.59 Personal history of other mental and behavioral disorders; Z88.6 Allergy status to analgesic agent; Z79.899 Other long term (current) drug therapy

== ENCOUNTER → 2020-10-12 | Outpatient (CLI) | payer MEDICARE, MEDICAID ==
--- NOTE | 2020-10-17 02:09 | ECWPNPC ---
PATIENT NAME: KECIA JACKSON : 1980 GENDER: FEMALE VISIT DATE: 10/12/2020 DISCHARGE DATE: 10/12/20 1234 VISIT LOCKED DATE TIME: PHYSICIAN: VERNELL GASTELUM MD PHYSICIAN PAGER NO: ACTIVE RESOURCE: EVRNELL GASTELUM MD REASON FOR APPOINTMENT 1. BACK PAIN WITH RADICULAR SYMPTOMS HISTORY OF PRESENT ILLNESS GENERAL: 39-YEAR-OLD FEMALE PATIENT WITH A HISTORY OF CHRONIC RIGHT LEG PAIN. THE PATIENT DESCRIBES THE PAIN THROBBING, SHOOTING AND ACHING WITH A PAIN SCORE RANGING FROM 6-10/10 IN THE BACK WITH RADIATION TO THE RIGHT LEG. SHE HAS DIFFICULTY ON OCCASION MOVING AROUND AND WALKING. THIS HAS BEEN AN ONGOING PROBLEM THAT SHE HAS HAD FOR SOME TIME NOW. THE PATIENT HAS TRIED TRIGGER POINT INJECTIONS IN THE PAST THAT HAVE NOT REALLY HELPED HER. THE PATIENT HAD AN EVENT OF A VASOVAGAL IN OUR FACILITY AFTER A PROCEDURE AND ENDED UP IN THE ER. FALL RISK SCREENING: SCREENING :ONE FALL WITH INJURY IN THE PAST YEAR DISCUSSED PREVIOUSLY PAIN SCREENING: PATIENT HAS A COMPLAINT OF ACUTE OR CHRONIC PAIN :YES LOCATION OF PAIN:LOW BACK, LEG(S) RIGHT LEG INTENSITY OF PAIN (SCALE OF 1 TO 10):5 WHAT DOES YOUR PAIN FEEL LIKE:SHOOTING, OTHER NUMBNESS DURATION:CONTINOUS GETS WORSE THROUGHOUT THE DAY PAIN IS INCREASED BY:ACTIVITIES, PROLONGED STANDING, OTHERS PROLONGED WALKING, PROLONGED SITTING PAIN IS DECREASED BY:OTHERS TIZANIDINE HELPS WITH SLEEP, HEAT, WARM BATH NURSING NOTE: -. PAIN CENTER INTAKE QUESTIONS: DO YOU HAVE A HISTORY OF MRSA? :NO DO YOU TAKE A BLOOD THINNERS? :NO DO YOU HAVE ANY BLEEDING DISORDERS? :NO ANY NEW NUMBNESS OR WEAKNESS IN YOUR LEGS OR ARMS? :NO ANY PACEMAKER,DEFIBRILLATOR, OR DORSAL COLUMN STIMULATOR? :NO DO YOU HAVE ANY RASHES OR OPEN SORES? :NO ARE YOU ALLERGIC TO IV DYE? :NO ARE YOU DIABETIC? :NO ANY NEW PROBLEMS WITH YOUR MEDICATIONS? :NO HAVE YOU RECEIVED A VACCINE IN THE PAST 30 DAYS? :NO DO YOU PLAN TO RECEIVE A VACCINE IN THE NEXT 21 DAYS? :NO DO YOU NEED ANY PRESCRIPTION? :YES TIZANIDINE DO YOU TAKE ANY IMMUNOSUPPRESSIVE MEDICATIONS? :NO IS THERE A CHANCE YOU COULD BE ? :NO ARE YOU BREAST FEEDING? :NO CURRENT MEDICATIONS TAKING MULTIVITAMIN TABLET CHEWABLE ORALLY DAILY TAKING MIRALAX - PACKET 1 PACKET MIXED WITH 8 OUNCES OF FLUID ORALLY ONCE A DAY TAKING ACETAMINOPHEN 325 MG TABLET 3 TABLET NEEDED ORALLY 3 TIMES A DAY NEEDED TAKING TYLENOL EXTRA STRENGTH 500 MG TABLET 2 TABLETS NEEDED ORALLY EVERY 6 HRS TAKING TIZANIDINE HCL 2 MG TABLET 1 TABLET NEEDED ORALLY TWO TIMES A DAY PRN TAKING VENTOLIN HFA 108 (90 BASE) MCG/ACT AEROSOL SOLUTION 2 PUFFS NEEDED INHALATION EVERY 4 HRS TAKING SERTRALINE HCL 50 MG TABLET 1 TABLET ORALLY ONCE A DAY TAKING AMPHETAMINE-DEXTROAMPHET ER 20 MG CAPSULE EXTENDED RELEASE 24 HOUR 1 TAB ORALLY ONCE A DAY IN AFTERNOON TAKING ADDERALL XR 30 MG CAPSULE EXTENDED RELEASE 24 HOUR 1 CAPSULE IN THE MORNING ORALLY ONCE A DAY NOT-TAKING GABAPENTIN 100 MG CAPSULE 1 CAPSULE ORALLY BEFORE BEDTIME NOT-TAKING TRAMADOL HCL 50 MG TABLET 1 - 2 TABLET NEEDED ORALLY EVERY 6 HRS PRN PAIN MDD=4, NOTES: 02/23/18@2300 MEDICATION LIST REVIEWED AND RECONCILED WITH THE PATIENT PAST MEDICAL HISTORY ADHD - DIAGNOSED IN [facility] - [facility] GERD RENAL LITHIASIS 11/21 MRI R HIP MILD TENDINOBURSITIS OCD/ANXIETY/PTSD - RESPONDED TO ZOLOFT IN THE PAST 09/22 MRI L SPINE, L5-S1 MILD DISC DEGENERATION, OTHERWISE NL. MORBID OBESITY CERVICALGIA SACROILIITIS MYALGIA MIGRAINES DEPRESSION RAYNAUD'S STOMACH ULCERS ALLERGIES NSAIDS: GIBLEED/ULCER - CONTRAINDICATION SOCIAL HISTORY GENERAL: TOBACCO USE ARE YOU A:NONSMOKER VAPORNO E-CIGARETTENO LATEX QUESTIONNAIRE LATEX ALLERGY : HAVE YOU EVER DEVELOPED ANY TYPE OF REACTION AFTER HANDLING LATEX PRODUCTS SUCH RUBBER GLOVES, CONDOMS, DIAPHRAGMS, BALLOONS, SOCKS, OR UNDERWEAR?NO LATEX ALLERGY : HAVE YOU EVER DEVELOPED ANY TYPE OF REACTION DURING OR AFTER DENTAL APPOINTMENT, VAGINAL/RECTAL EXAMINATION, SURGICAL PROCEDURE, OR ANY OTHER EXPOSURE?NO LATEX RISK : HAVE YOU EVER HAD ANY DIFFICULTY BREATHING OR HIVES AFTER EATING OR HANDLING ANY FRUITS, OR VEGETABLES; SUCH KIWI, BANANAS, STONE FRUITS, OR CHESTNUTSNO LATEX RISK : DO YOU HAVE A PREVIOUS PERSONAL HISTORY OF MORE THAN NINE SURGERIES, SPINA BIFIDA, OR REPEATED CATHERIZATIONS? NO LATEX RISK : ARE YOU FREQUENTLY EXPOSED TO LATEX PRODUCTS IN YOUR OCCUPATION?NO DATE ASKED : 10/12/2020 ALCOHOL USE: YES, RARELY. ALCOHOL SCREENING DID YOU HAVE A DRINK CONTAINING ALCOHOL IN THE PAST YEAR?NO POINTS0 INTERPRETATIONNEGATIVE RECREATIONAL DRUG USE DRUG USE?NO CAFFEINE CAFFEINE USE?YES HOW OFTEN AND HOW MUCH? 3-4 CUPS COFFEE PER WEEK [employer] [id number] YAZIDISM LANGUAGE LANGUAGES SPOKEN:LUXEMBOURGISH EDUCATION LEVEL OF EDUCATION:NOT FINISHED COLLEGE LEARNING BARRIERS / SPECIAL NEEDS CHANGE FROM LAST VISIT?NO BARRIERS TO LEARNING?YES ADHD, TAKES ADDERALL HEARING IMPAIRED?NO VISION IMPAIRED?YES :CORRECTIVE LENSES COGNITIVELY IMPAIRED?NO READINESS TO LEARN?YES LEARNING PREFERENCES?NO LEARNING CAPABILITIES PRESENT?YES EMOTIONAL BARRIERS?NO SPECIAL DEVICES?NO PROCUREMENT ANALYST NEEDED?NO OCCUPATION: NOT WORKING. DIET: REGULAR. EXERCISE: NO REGULAR EXERCISE. MARITAL STATUS: . OTHERS AT HOME: CHILDREN, SPOUSE. HOUSING: OWNS HOME. REVIEW OF SYSTEMS CONSTITUTIONAL: ANY RECENT FEVER NO . CHILLS NO . WEIGHT CHANGE OF UNKNOWN REASONS NO . GASTROENTEROLOGY: NEW UNEXPLAINABLE CHANGES IN BOWEL CONTROL NO . CONSTIPATION NO . GENITOURINARY: ANY NEW CHANGE IN BLADDER CONTROL? NO . NEUROLOGY: NEW ONSET DIZZINESS OR NEUROLOGICAL CHANGES NOT MENTIONED NO . NEW NUMBNESS OR PAIN PATTERNS NOT MENTIONED AND PERTINENT TO TODAY'S VISIT NO . CARDIOLOGY: NEW CHEST PRESSURE NO . NEW CHEST PAIN NO . RESPIRATORY: UNEXPLAINABLE COUGH NO . NEW SHORTNESS OF BREATH NO . VITAL SIGNS WT 184.8 LBS, HT 59", BMI 37.32 INDEX, BP 120/75 MM HG, HR 87 /MIN, RR 18 /MIN, TEMP 98.6 F, OXYGEN SAT % 93%, SAFE IN ENV? (Y/N) YES, NA INITIALS CO 11:48, REVIEWED BY: JSJ. DIONTE RN. EXAMINATION GENERAL EXAMINATION: THE PATIENT IS ALERT, ORIENTED TIMES THREE AND COOPERATIVE. LUNGS ARE CLEAR TO AUSCULTATION. HEART SHOWS REGULAR RHYTHM, NO MURMURS AND NO GALLOPS. HER WALK IS ANTALGIC, LIMPING FORM THE LEFT LEG. THE LEFT LEG IS WEAKER THAN THE RIGHT LEG ON FLEXION AND EXTENSION. STRAIGHT LEG RAISE IS POSITIVE FOR RADICULOPATHY ON THE LEFT AT 50 DEGREES ALTHOUGH THE PATIENT SAYS THAT IT IS MANAGEABLE. MRI OF THE LUMBAR SPINE SHOWS DECREASING SIGNAL OF L5-S1 DISC. EMG DONE BY DR. CLIFFORD IS WITHIN NORMAL LIMITS. ASSESSMENTS INTERVERTEBRAL DISC DISORDERS WITH RADICULOPATHY, LUMBOSACRAL REGION - M51.17 (PRIMARY) NEUROLOGICAL SYMPTOMS - R29.90 TREATMENT INTERVERTEBRAL DISC DISORDERS WITH RADICULOPATHY, LUMBOSACRAL REGION CLINICAL NOTES: I DISCUSSED ALTERNATIVES WITH MS. JACKSON. I WOULD LIKE TO TALK TO THE RADIOLOGIST. THE PATIENT IS A CANDIDATE FOR AN EPIDURAL BUT GIVEN THE EVENT IN THE PAST, I WOULD LIKE TO DO THIS IN THE OR FOR SAFETY. I WOULD LIKE TO ORDER A BRAIN AND A NECK MRI TO LOOK FOR OTHER REASONS SHE IS HAVING THIS PAIN IN HER LEG. I WOULD LIKE TO TALK TO DR. CLIFFORD ABOUT HER CASE. I WILL HAVE THE PATIENT FOLLOW UP WITH ME IN 2 WEEKS. THE PATIENT REPORTS UNDERSTANDING AND AGREES WITH THE PLAN. I, JEREMY VALLADARES, DOCUMENTED THE ABOVE INFORMATION ACTING A SCRIBE FOR DR. GASTELUM. I HAVE REVIEWED THE ABOVE DOCUMENT, WRITTEN BY JEREMY VALLADARES, [employer] SCHOOL CAREGIVER, AND I VERIFY THAT IT IS ACCURATE. NEUROLOGICAL SYMPTOMS [facility] MRI BRAIN WITHOUT CONTRAST (CPT [id number] [facility] MRI SPINE, CERVICAL WITHOUT [id number] PROCEDURE CODES FA211 ESTABILISHED PATIENT [facility] FACILITY CHARGE [id number] OFFICE/OUTPATIENT VISIT EST DISPOSITION & COMMUNICATION FOLLOW UP FOLLOW UP WITH DR. Camejo IN 2 WEEKS (REASON: FOLLOW UP BACK AND LEG PAIN. ) ELECTRONICALLY SIGNED BY VERNELL GASTELUM MD, ON 10/16/2020 AT 11:40 AM EST DISCLAIMER : THIS IS A VISIT SUMMARY EXTRACTED FROM THE [employer] CHART. IT IS NOT A COPY OF THE [employer] PROGRESS NOTE. MTDD
== END ==
LOC: M PAIN 11:15
PROVIDERS: ATTEND Anesthesiology
DX: M51.17 Intervertebral disc disorders with radiculopathy, lumbosacral region (principal); R29.90 Unspecified symptoms and signs involving the nervous system; J45.909 Unspecified asthma, uncomplicated; K21.9 Gastro-esophageal reflux disease without esophagitis; F41.9 Anxiety disorder, unspecified; F43.10 Post-traumatic stress disorder, unspecified; E66.01 Morbid (severe) obesity due to excess calories; G43.909 Migraine, unspecified, not intractable, without status migrainosus; F32.9 Major depressive disorder, single episode, unspecified; I73.00 Raynaud's syndrome without gangrene; Z68.37 Body mass index [BMI] 37.0-37.9, adult; F90.9 Attention-deficit hyperactivity disorder, unspecified type; M54.2 Cervicalgia; Z87.442 Personal history of urinary calculi; Z79.899 Other long term (current) drug therapy; Z88.6 Allergy status to analgesic agent

== ENCOUNTER → 2020-12-06 | Outpatient (CLI) | payer MEDICARE, MEDICAID ==
--- NOTE | 2020-12-06 17:04 | REPVR ---
PROCEDURE INFORMATION: Exam: MR Head Without Contrast Exam date and time: 12/06/2020 11:48 AM Age: 40 years old Clinical indication: Other: Neurological symptoms TECHNIQUE: Imaging protocol: MR of the head without contrast. COMPARISON: No relevant prior studies available. FINDINGS: Limitations: There is motion artifact partially and mildly degrading examination. Brain: No abnormal areas of signal intensity are seen. Diffusion images are normal. No evidence of acute infarction. No evidence of acute intracranial hemorrhage. No extra-axial fluid collections. Ventricles and cerebrospinal fluid spaces are normal in size and configuration for the patient's age. There is no evidence of mass-effect or midline shift. Flow voids of the [place] of [place] and major cerebral vascular structures appear intact. Craniocervical junction appears unremarkable, with normal position of cerebellar tonsils and no evidence of Chiari I malformation. Cerebral ventricles: Normal. No ventriculomegaly. Bones/joints: Unremarkable as visualized. Paranasal sinuses: There is no significant mucosal thickening in paranasal sinuses. No air-fluid levels. Mastoid air cells: No significant mastoid effusion. Orbital cavity: Unremarkable. Soft tissues: Unremarkable as visualized. IMPRESSION: Unremarkable brain MRI for age. No acute infarct, acute hemorrhage, or evidence of mass lesion based on noncontrast evaluation. Electronically signed by: Leatha Franklin On 12/06/2020 17:04:43 PM
--- NOTE | 2020-12-06 17:10 | REPVR ---
PROCEDURE INFORMATION: Exam: MR Cervical Spine Without Contrast Exam date and time: 12/06/2020 11:48 AM Age: 40 years old Clinical indication: Other: Neurological symptoms TECHNIQUE: Imaging protocol: Multiplanar magnetic resonance images of the cervical spine without contrast. COMPARISON: XA FLUORO GUIDE SPINE INJECTION 02/24/2018 4:09 PM FINDINGS: Vertebrae: The cervical spine is normal in position and alignment. Craniocervical junction appears normal with normal position of cerebellar tonsils. There is a small hemangioma in left side of C7. Vertebral body marrow signal is otherwise unremarkable. Disc heights are well-preserved. Spinal cord: Cervical spinal cord signal is normal without intrinsic or extrinsic lesions. Discs/Spinal canal/Neural foramina: There is no significant amount of disc bulging or focal disc protrusion. No spinal stenosis or cord compression. No significant degrees of neural foraminal narrowing with evaluation slightly limited by motion. Vasculature: Expected flow voids in the vertebral arteries. Soft tissues: Unremarkable IMPRESSION: Essentially unremarkable cervical spine MRI. No cord compression, spinal stenosis, or significant neural foraminal narrowing. Electronically signed by: Leatha Franklin On 12/06/2020 17:10:45 PM
== END ==
LOC: M RAD 10:41
PROVIDERS: ATTEND Anesthesiology
DX: R29.90 Unspecified symptoms and signs involving the nervous system (principal); D18.00 Hemangioma unspecified site

== ENCOUNTER → 2021-01-18 | Outpatient (CLI) | payer MEDICARE, MEDICAID ==
--- NOTE | 2021-01-19 04:19 | ECWPNPC ---
PATIENT NAME: KECIA JACKSON : 1980 GENDER: FEMALE VISIT DATE: 01/18/2021 DISCHARGE DATE: 01/18/21 1142 VISIT LOCKED DATE TIME: PHYSICIAN: VERNELL GASTELUM MD PHYSICIAN PAGER NO: ACTIVE RESOURCE: VERNELL GASTELUM MD REASON FOR APPOINTMENT 1. REVIEW MRI HISTORY OF PRESENT ILLNESS GENERAL: 40-YEAR-OLD FEMALE PATIENT WITH A HISTORY OF CHRONIC RIGHT LOW BACK AND MAINLY RIGHT LEG PAIN. THE PATIENT HAS BEEN SUFFERING FROM THIS FOR OVER 15 YEARS. THIS IS AFFECTING HER ABILITY TO DO ACTIVITIES SUCH CLEANING HER HOUSE AND GROCERY SHOPPING. SHE IS VERY DISAPPOINTED WITH THE CONDITION. SHE HAS TRIED MEDICATION MANAGEMENT BUT HE PAIN PERSISTS. WE TRIED TO DO AN EPIDURAL IN THE PAST BUT SHE ENDED UP IN THE ER DUE TO A SEVERE REACTION. FALL RISK SCREENING: SCREENING : ONE FALL WITH INJURY IN THE PAST YEAR, LAST FALL IN DECEMBER 2020, PATIENT REPORTS WAS ATTEMPTING TO STAND UP FROM COUCH AND FELL FACE FIRST, PATIENT DID NOT SEEK MEDICAL ATTENTION, PATIENT REPORTS ODD SENSATION, DIFFICULT TO DESCRIBE, "LEGS WHERE JUST THERE.". PAIN SCREENING: PATIENT HAS A COMPLAINT OF ACUTE OR CHRONIC PAIN :YES LOCATION OF PAIN:LOW BACK, LEG(S) RIGHT LEG, LEFT SIDE OF NECK. INTENSITY OF PAIN (SCALE OF 1 TO 10):4 WHAT DOES YOUR PAIN FEEL LIKE:SHOOTING, OTHER NUMBNESS, "PINS AND NEEDLES", "COLD SENSATION" DURATION:CONTINOUS, AWAKENS FROM SLEEP GETS WORSE THROUGHOUT THE DAY PAIN IS INCREASED BY:ACTIVITIES, PROLONGED STANDING, OTHERS PAIN IS DECREASED BY:USE OF PAIN MEDICATIONS, OTHERS PAIN HAS INTERFERED WITH THE FOLLOWING: INTERFERES WITH ADLS PLAN/GOALS/TREATMENT/INTERVENTION/FOLLOW UP:SEE PLAN NURSING NOTE: -. PAIN CENTER INTAKE QUESTIONS: DO YOU HAVE A HISTORY OF MRSA? :NO DO YOU TAKE A BLOOD THINNERS? :NO DO YOU HAVE ANY BLEEDING DISORDERS? :NO ANY NEW NUMBNESS OR WEAKNESS IN YOUR LEGS OR ARMS? 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 ANY PACEMAKER,DEFIBRILLATOR, OR DORSAL COLUMN STIMULATOR? :NO DO YOU HAVE ANY RASHES OR OPEN SORES? :NO ARE YOU ALLERGIC TO IV DYE? :NO ARE YOU DIABETIC? :NO ANY NEW PROBLEMS WITH YOUR MEDICATIONS? :NO HAVE YOU RECEIVED A VACCINE IN THE PAST 30 DAYS? :NO DO YOU PLAN TO RECEIVE A VACCINE IN THE NEXT 21 DAYS? :NO DO YOU NEED ANY PRESCRIPTION? :YES TIZANIDINE DO YOU TAKE ANY IMMUNOSUPPRESSIVE MEDICATIONS? :NO ANY HISTORY OF SEIZURES? :NO ANY HISTORY OF CARDIAC ISSUES OR EVENTS? :NO DO YOU HAVE ANY KIDNEY OR LIVER DISEASE? :NO IS THERE A CHANCE YOU COULD BE ? :NO ARE YOU BREAST FEEDING? :NO CURRENT MEDICATIONS TAKING MULTIVITAMIN TABLET CHEWABLE ORALLY DAILY TAKING MIRALAX - PACKET 1 PACKET MIXED WITH 8 OUNCES OF FLUID ORALLY ONCE A DAY TAKING ACETAMINOPHEN 325 MG TABLET 3 TABLET NEEDED ORALLY 3 TIMES A DAY NEEDED TAKING TYLENOL EXTRA STRENGTH 500 MG TABLET 2 TABLETS NEEDED ORALLY EVERY 6 HRS TAKING TIZANIDINE HCL 2 MG TABLET 1 TABLET NEEDED ORALLY TWO TIMES A DAY PRN TAKING VENTOLIN HFA 108 (90 BASE) MCG/ACT AEROSOL SOLUTION 2 PUFFS NEEDED INHALATION EVERY 4 HRS TAKING SERTRALINE HCL 50 MG TABLET 1 TABLET ORALLY ONCE A DAY TAKING ADDERALL XR 30 MG CAPSULE EXTENDED RELEASE 24 HOUR 1 CAPSULE IN THE MORNING ORALLY ONCE A DAY TAKING AMPHETAMINE-DEXTROAMPHET ER 20 MG CAPSULE EXTENDED RELEASE 24 HOUR 1 TAB ORALLY ONCE A DAY IN AFTERNOON NOT-TAKING GABAPENTIN 100 MG CAPSULE 1 CAPSULE ORALLY BEFORE BEDTIME NOT-TAKING TRAMADOL HCL 50 MG TABLET 1 - 2 TABLET NEEDED ORALLY EVERY 6 HRS PRN PAIN MDD=4, NOTES: 02/23/18@2300 MEDICATION LIST REVIEWED AND RECONCILED WITH THE PATIENT PAST MEDICAL HISTORY ADHD - DIAGNOSED IN [facility] - [facility] GERD RENAL LITHIASIS 11/21 MRI R HIP MILD TENDINOBURSITIS OCD/ANXIETY/PTSD - RESPONDED TO ZOLOFT IN THE PAST 09/22 MRI L SPINE, L5-S1 MILD DISC DEGENERATION, OTHERWISE NL. MORBID OBESITY CERVICALGIA SACROILIITIS MYALGIA MIGRAINES DEPRESSION RAYNAUD'S STOMACH ULCERS ALLERGIES NSAIDS: GIBLEED/ULCER - CONTRAINDICATION SOCIAL HISTORY GENERAL: TOBACCO USE ARE YOU A:NONSMOKER VAPORNO E-CIGARETTENO LATEX QUESTIONNAIRE LATEX ALLERGY : HAVE YOU EVER DEVELOPED ANY TYPE OF REACTION AFTER HANDLING LATEX PRODUCTS SUCH RUBBER GLOVES, CONDOMS, DIAPHRAGMS, BALLOONS, SOCKS, OR UNDERWEAR?NO LATEX ALLERGY : HAVE YOU EVER DEVELOPED ANY TYPE OF REACTION DURING OR AFTER DENTAL APPOINTMENT, VAGINAL/RECTAL EXAMINATION, SURGICAL PROCEDURE, OR ANY OTHER EXPOSURE?NO LATEX RISK : HAVE YOU EVER HAD ANY DIFFICULTY BREATHING OR HIVES AFTER EATING OR HANDLING ANY FRUITS, OR VEGETABLES; SUCH KIWI, BANANAS, STONE FRUITS, OR CHESTNUTSNO LATEX RISK : DO YOU HAVE A PREVIOUS PERSONAL HISTORY OF MORE THAN NINE SURGERIES, SPINA BIFIDA, OR REPEATED CATHERIZATIONS? NO LATEX RISK : ARE YOU FREQUENTLY EXPOSED TO LATEX PRODUCTS IN YOUR OCCUPATION?NO DATE ASKED : 01/18/2021 ALCOHOL USE: YES, RARELY. ALCOHOL SCREENING DID YOU HAVE A DRINK CONTAINING ALCOHOL IN THE PAST YEAR?NO POINTS0 INTERPRETATIONNEGATIVE RECREATIONAL DRUG USE DRUG USE?NO CAFFEINE CAFFEINE USE?YES HOW OFTEN AND HOW MUCH? 3-4 CUPS COFFEE PER WEEK GNOSTICISM [id number] ROMAN CATHOLIC LANGUAGE LANGUAGES SPOKEN:UPPER SORBIAN EDUCATION LEVEL OF EDUCATION:NOT FINISHED COLLEGE LEARNING BARRIERS / SPECIAL NEEDS CHANGE FROM LAST VISIT?NO BARRIERS TO LEARNING?YES ADHD, TAKES ADDERALL HEARING IMPAIRED?NO VISION IMPAIRED?YES :CORRECTIVE LENSES COGNITIVELY IMPAIRED?NO READINESS TO LEARN?YES LEARNING PREFERENCES?NO LEARNING CAPABILITIES PRESENT?YES EMOTIONAL BARRIERS?NO SPECIAL DEVICES?NO ASSOCIATE WEB DEVELOPER NEEDED?NO OCCUPATION: NOT WORKING. DIET: REGULAR. EXERCISE: NO REGULAR EXERCISE. MARITAL STATUS: . OTHERS AT HOME: CHILDREN, SPOUSE. HOUSING: OWNS HOME. REVIEW OF SYSTEMS CONSTITUTIONAL: ANY RECENT FEVER NO . CHILLS NO . WEIGHT CHANGE OF UNKNOWN REASONS NO . GASTROENTEROLOGY: NEW UNEXPLAINABLE CHANGES IN BOWEL CONTROL NO . CONSTIPATION NO . GENITOURINARY: ANY NEW CHANGE IN BLADDER CONTROL? NO . NEUROLOGY: NEW ONSET DIZZINESS OR NEUROLOGICAL CHANGES NOT MENTIONED NO . NEW NUMBNESS OR PAIN PATTERNS NOT MENTIONED AND PERTINENT TO TODAY'S VISIT NO . CARDIOLOGY: NEW CHEST PRESSURE NO . PATIENT DENIES NO . RESPIRATORY: UNEXPLAINABLE COUGH NO . NEW SHORTNESS OF BREATH NO . VITAL SIGNS WT 186.4 LBS, HT 59", BMI 37.64 INDEX, BP 130/83 MM HG, HR 79 /MIN, RR 18 /MIN, TEMP 97.9 F, OXYGEN SAT % 90%, SAFE IN ENV? (Y/N) YES, NA INITIALS SC 10:36, REVIEWED BY: Cirilo BOURNE RN BSN. EXAMINATION GENERAL EXAMINATION: THE PATIENT IS ALERT, ORIENTED TIMES THREE AND COOPERATIVE. LUNGS ARE CLEAR TO AUSCULTATION. HEART SHOWS REGULAR RHYTHM, NO MURMURS AND NO GALLOPS. HER WALK IS ANTALGIC. STRAIGHT LEG RAISING IS POSITIVE FOR RADICULOPATHY AT 60 DEGREES. SHE IS LIMPING FROM THE RIGHT LEG. THE RIGHT LEG IS WEAKER THAN THE LEFT LEG ON FLEXION AND EXTENSION. MRI OF THE CERVICAL SPINE DONE IN DECEMBER SHOWS NORMAL RESULTS. MRI OF THE BRAIN IS BASICALLY UNREMARKABLE. MRI OF THE LUMBAR SPINE DATED 09/05/2020 IS UNREMARKABLE. ASSESSMENTS INTERVERTEBRAL DISC DISORDERS WITH RADICULOPATHY, LUMBOSACRAL REGION - M51.17 (PRIMARY) NEUROLOGICAL SYMPTOMS - R29.90 TREATMENT INTERVERTEBRAL DISC DISORDERS WITH RADICULOPATHY, LUMBOSACRAL REGION REFERRAL TO:[facility] REASON:FULL NEUROLOGICAL EVALUATION NEUROLOGICAL SYMPTOMS REFERRAL TO:[facility] REASON:FULL NEUROLOGICAL EVALUATION OTHERS CLINICAL NOTES: I DISCUSSED ALTERNATIVES WITH MS. JACKSON. I WANT HER TO BE SEEN BY THE NEUROLOGICAL GROUP FOR A FULL EVALUATION. THE PATIENT REQUEST TO BE SEEN BY DR. PERRI CLIFFORD. THE PATIENT'S BRAIN, CERVICAL AND LUMBAR MRI ARE NEGATIVE AND THE NERVE CONDUCTION STUDY IS ALSO NEGATIVE. SHE HAS BEEN SUFFERING FROM THIS SINCE SHE WAS 19 YEARS OLD SO THERE HAS TO BE A LOGICAL EXPLANATION. THERE ARE OTHER STUDIES THAT COULD BE CONSIDER TO EVALUATE HER WHICH INCLUDE BRAIN MRA, THORACIC MRI, PELVIC MRI LOOKING FOR PIRIFORMIS MUSCLES AND OTHER CONDITIONS, BUT THE PATIENT IS BEHAVING WITH SIGNS OF RADICULOPATHY FROM THE BACK. THERE IS A DECREASE IN SIGNAL AT THE DISC OF L5-S1 BUT I WANT TO PUT IN THE CONTEXT THAT THE PATIENT HAS HAD THIS CONDITION SINCE SHE WAS 19 YEARS OLD. I MAY CONSIDER DOING AN EPIDURAL ON THE PATIENT. IF WE WERE TO FOLLOW THAT ROUTE IT SHOULD BE IN THE OR. I WAS GOING TO PERFORM AN EPIDURAL BUT DURING THE PROCEDURE, THE PATIENT DEVELOPED A REACTION AND THE PATIENT ENDED UP IN THE ER. SO WE WOULD HAVE TO DO A PROCEDURE IN THE OPERATING ROOM. THE PATIENT REPORTS UNDERSTANDING AND AGREES WITH THE PLAN. I, JEREMY VALLADARES, DOCUMENTED THE ABOVE INFORMATION ACTING A SCRIBE FOR DR. GASTELUM. I HAVE REVIEWED THE ABOVE DOCUMENT, WRITTEN BY JEREMY VALLADARES, PULMONARY PHYSICAL THERAPIST, AND I VERIFY THAT IT IS ACCURATE. . PROCEDURE CODES FA211 ESTABILISHED PATIENT [facility] FACILITY CHARGE [address] OFFICE/OUTPATIENT VISIT EST DISPOSITION & COMMUNICATION FOLLOW UP FOLLOW UP [address] Camejo (REASON: DISCUSS NEUROLOGICAL APPOINTMENT/LOW BACK PAIN) ELECTRONICALLY SIGNED BY VERNELL GASTELUM MD, MD ON 01/18/2021 AT 04:42 PM EDT DISCLAIMER : THIS IS A VISIT SUMMARY EXTRACTED FROM THE [employer] CHART. IT IS NOT A COPY OF THE [employer] PROGRESS NOTE. JARRED
== END ==
LOC: M PAIN 11:00
PROVIDERS: ATTEND Anesthesiology
DX: M51.17 Intervertebral disc disorders with radiculopathy, lumbosacral region (principal); G89.29 Other chronic pain; R29.90 Unspecified symptoms and signs involving the nervous system; J45.909 Unspecified asthma, uncomplicated; M79.10 Myalgia, unspecified site; G43.909 Migraine, unspecified, not intractable, without status migrainosus; Z86.59 Personal history of other mental and behavioral disorders; Z88.6 Allergy status to analgesic agent; Z79.899 Other long term (current) drug therapy

== ENCOUNTER → 2021-02-26 | Outpatient (CLI) | payer MEDICARE, MEDICAID ==
[2021-02-26 13:27] LABS: FOLATE 9.6 NG/ML; FREE T4 0.82 NG/DL (0.76-1.46); FREE THYROXINE INDEX 2.5 % (1.3-4.8); RHEUMATOID FACTOR QUANT < 10.0 IU/ML (<15.0); T UPTAKE 27 % (30-39); THYROXINE (T4) 9.4 UG/DL (4.5-12.0); VITAMIN B12 LEVEL 297 PG/ML
== END ==
LOC: M LABDRWAD 10:09
PROVIDERS: ATTEND Psychiatry & Neurology Neurology
DX: R20.0 Anesthesia of skin (principal); E53.8 Deficiency of other specified B group vitamins; E07.9 Disorder of thyroid, unspecified; M25.50 Pain in unspecified joint; F90.2 Attention-deficit hyperactivity disorder, combined type; E66.01 Morbid (severe) obesity due to excess calories; F41.1 Generalized anxiety disorder; G43.009 Migraine without aura, not intractable, without status migrainosus; Z13.9 Encounter for screening, unspecified; Z79.899 Other long term (current) drug therapy

== ENCOUNTER → 2021-02-26 | Outpatient (REF) | payer MEDICARE, MEDICAID ==
[2021-02-26 12:39] LABS: BASO % 0.3 % (0.0-1.0); EOS # 0.3 10^3/uL (0.0-0.5); HEMATOCRIT 46.4 % (36.0-47.0); HEMOGLOBIN 14.5 g/dl (12.0-15.5); LYMPH # 2.4 10^3/uL (1.5-5.0); LYMPH % 34.3 % (24.0-44.0); MEAN CORPUSCULAR HEMOGLOBIN 29.5 pg (27.0-33.0); MEAN CORPUSCULAR HGB CONC 31.3 g/dl (32.0-36.5); MEAN CORPUSCULAR VOLUME 94.3 fl (80.0-96.0); MONO # 0.6 10^3/uL (0.0-0.8); MONO % 8.8 % (2.0-8.0); NEUTROPHILS # 3.7 10^3/uL (1.5-8.5); NEUTROPHILS % 52.3 % (36.0-66.0); PLATELET COUNT, AUTOMATED 361 10^3/uL (150-450); RED BLOOD COUNT 4.92 10^6/uL (4.00-5.40)
[2021-02-26 13:28] LABS: ALBUMIN 3.6 GM/DL (3.2-5.2); ALT/SGPT 26 U/L (12-78); BILIRUBIN,TOTAL 0.6 MG/DL (0.2-1.0); BLOOD UREA NITROGEN 9 MG/DL (7-18); CALCIUM LEVEL 9.2 MG/DL (8.5-10.1); CARBON DIOXIDE LEVEL 30 MEQ/L (21-32); CHLORIDE LEVEL 107 MEQ/L (98-107); CHOLESTEROL LEVEL 203 MG/DL (<200); CHOLESTEROL RISK RATIO 3.383 (<5); CREATININE FOR GFR 0.63 MG/DL (0.55-1.30); FREE T4 0.83 NG/DL (0.76-1.46); GLOMERULAR FILTRATION RATE > 60.0 (>60); GLUCOSE, FASTING 85 MG/DL (70-100); HDL CHOLESTEROL 60 MG/DL (>40); LDL CHOLESTEROL 131 MG/DL (<100); NON-HDL-C 143 MG/DL; POTASSIUM SERUM 4.3 MEQ/L (3.5-5.1); SODIUM LEVEL 139 MEQ/L (136-145); TRIGLYCERIDES LEVEL 62 MG/DL (<150)
== END ==
LOC: M SFHCADAM 10:05
PROVIDERS: ATTEND Physician Assistant Medical
DX: F90.2 Attention-deficit hyperactivity disorder, combined type (principal); E66.01 Morbid (severe) obesity due to excess calories; F41.1 Generalized anxiety disorder; G43.009 Migraine without aura, not intractable, without status migrainosus

== ENCOUNTER → 2021-04-05 | Outpatient (CLI) | payer MEDICARE, MEDICAID ==
[~2021-04-05] MED LIST changes: +ALBU83IN NEB; +BELB75MI; +EASYMIS17 XX; +PRED20TA PO
== END ==
LOC: M PAIN 11:30
PROVIDERS: ATTEND Anesthesiology
DX: M79.604 Pain in right leg (principal); Z87.39 Personal history of other diseases of the musculoskeletal system and connective tissue; Z79.891 Long term (current) use of opiate analgesic; F90.9 Attention-deficit hyperactivity disorder, unspecified type; J45.909 Unspecified asthma, uncomplicated; K21.9 Gastro-esophageal reflux disease without esophagitis; E66.01 Morbid (severe) obesity due to excess calories; M54.2 Cervicalgia; G43.909 Migraine, unspecified, not intractable, without status migrainosus; F32.9 Major depressive disorder, single episode, unspecified; I73.00 Raynaud's syndrome without gangrene; Z68.37 Body mass index [BMI] 37.0-37.9, adult; Z79.899 Other long term (current) drug therapy; Z88.6 Allergy status to analgesic agent

== ENCOUNTER → 2021-04-19 | Outpatient (CLI) | payer MEDICARE, MEDICAID ==
[~2021-04-19] MED LIST changes: -ALBU83IN NEB; -BELB75MI; -EASYMIS17 XX; -PRED20TA PO
== END ==
LOC: M PAIN 11:30
PROVIDERS: ATTEND Anesthesiology
DX: M79.604 Pain in right leg (principal); M79.2 Neuralgia and neuritis, unspecified; J45.909 Unspecified asthma, uncomplicated; K21.9 Gastro-esophageal reflux disease without esophagitis; F41.9 Anxiety disorder, unspecified; F43.10 Post-traumatic stress disorder, unspecified; E66.01 Morbid (severe) obesity due to excess calories; F42.9 Obsessive-compulsive disorder, unspecified; G43.909 Migraine, unspecified, not intractable, without status migrainosus; F32.9 Major depressive disorder, single episode, unspecified; I73.00 Raynaud's syndrome without gangrene; K28.9 Gastrojejunal ulcer, unspecified as acute or chronic, without hemorrhage or perforation; Z79.899 Other long term (current) drug therapy; Z88.6 Allergy status to analgesic agent

== ENCOUNTER → 2021-07-15 | Outpatient (CLI) | payer MEDICARE, MEDICAID ==
[~2021-07-15] MED LIST changes: +ALBU83IN NEB; +BELB75MI; +EASYMIS17 XX; +PRED20TA PO
== END ==
LOC: M PAIN 09:30
PROVIDERS: ATTEND Anesthesiology
DX: M79.604 Pain in right leg (principal); J45.909 Unspecified asthma, uncomplicated; F90.9 Attention-deficit hyperactivity disorder, unspecified type; K21.9 Gastro-esophageal reflux disease without esophagitis; E66.01 Morbid (severe) obesity due to excess calories; M54.2 Cervicalgia; M79.18 Myalgia, other site; M53.3 Sacrococcygeal disorders, not elsewhere classified; G43.909 Migraine, unspecified, not intractable, without status migrainosus; F32.A Depression, unspecified; I73.00 Raynaud's syndrome without gangrene; Z87.11 Personal history of peptic ulcer disease; Z79.899 Other long term (current) drug therapy; Z88.6 Allergy status to analgesic agent; Z68.37 Body mass index [BMI] 37.0-37.9, adult

== ENCOUNTER 2021-07-17 07:09 | Emergency (ER) | payer MEDICARE, MEDICAID ==
[~2021-07-17 07:09] MED LIST changes: -ALBU83IN NEB; -BELB75MI; -EASYMIS17 XX; -PRED20TA PO
[2021-07-17] MEDS ORDERED: BELB75MI (07:30)
[2021-07-17] MEDS ORDERED: PRED20TA PO (08:04)
[2021-07-17] MEDS ORDERED: ALBU83IN NEB (08:06)
[2021-07-17] MEDS ORDERED: EASYMIS17 XX (08:07)
--- OUTSIDE RECORDS SUMMARY | 2021-07-17 09:04 | CCD ---
Author Author [facility] Organization [facility] Address Unknown Phone Unavailable Care Team Providers Care Software Test Specialist Name Role Phone Ranulfo Hernandez Unavailable PROBLEMS Type Condition ICD9-CM Code [id number] Code Onset Dates Condition S tatus W/U Status Risk SNOMED Code Notes Problem Attention-deficit hyperactivity disorder, combined type F90.2 Active confirmed 12893445 Problem Sacroiliac joint pain M53.3 Active confirmed 154101465 Problem Morbid obesity due to excess calories E66.01 Ac tive confirmed 048788552 Problem Myalgia M79.1 Active confirmed 78252345 Problem Hip pain, right M25.551 Active confirmed 316 [id number] Problem Cervicalgia M54.2 Active confirmed 79783406 Problem Sacroiliitis, not elsewhere classified M46.1 A ctive confirmed 87748616 Problem GIOVANNY (generalized anxiety disorder) F41.1 Activ e confirmed 98905801 Problem Generalized pain R52 Active confirmed 829 71770 Problem Intervertebral disc disorders with radiculopathy , lumbar region M51.16 Active confirmed [id number] Problem Hypoglycemia E16.2 Active confirmed 6406032 03 Problem Intervertebral disc disorders with radiculopathy , lumbosacral region M51.17 Active confirmed 9215962 Problem Migraine without aura and without status migrain osus, not intractable G43.009 Active confirmed 670906493 Problem Intervertebral disc disorder with radiculopathy of lumbar region M51.16 Active confirmed 40127103 Problem Raynaud''s phenomenon without gangrene I73.00 A ctive confirmed 169462695 Problem Sacroiliitis M46.1 Active confirmed 1189377 9 ALLERGIES Allergen (clinical drug ingredient) Drug/Non Drug Allergy do cumented on EMR Reaction Allergy Type Onset Date Status NSAIDS GIbleed/ulcer Non Drug Allergy Activ e ENCOUNTERS from 1982 to 2021-04-23 Encounter Location Date Provider Diagnosis [facility] [address] Floor [phone] [place] [address] Apr, Ranulfo Hernandez IMMUNIZATIONS Vaccine Route Administration Date Status TDAP IM Intramuscular Apr 29, 2016 Administered Influenza 6mo & up Fluzone Unknown January 02, 2016 Refus ed SOCIAL HISTORY Tobacco Use: Social History Observation Description Date Details (start date - stop date) Never Smoker Sex Assigned At : Social History Observation Description Sex Assigned At Unknown Education: Question Answer Notes Level of Education: Not Finished College Audit Question Answer Notes Total Score: 1 Interpretation: Alcohol Education Language: Question Answer Notes Languages spoken: [place] Citizen Roman Catholic: Question Answer Notes Roman Catholic 13 Rastafari Drug and Alcohol Question Answer Notes Total Score: 0 Interpretation: No problems reported Alcohol Screening: Question Answer Notes Did you have a drink containing alcohol in the past year? No Points 0 Interpretation Negative BMI Care Goal Follow-Up Question Answer Notes Above Normal BMI Follow-Up Giving encouragement to exe rcise, Nutrition / feeding management, Weight monitoring Tobacco Use: Question Answer Notes Are you a: never smoker REASON FOR REFERRAL No Information VITAL SIGNS No information MEDICATIONS Medication SIG (Take, Route, Frequency, Duration) Notes Start Da te End Date Status Cholecalciferol 50 MCG (1999 UT) 1 tablet Orally Once a day for 30 day(s) Feb, Active Salonpas 1.2-5.7-6.3 % as directed Externally Active Multivitamin Orally daily Active MiraLax - 1 packet mixed with 8 ounces of fluid Orally Once a day pr n Active Adderall XR 30 MG 1 capsule in the morning Orally Once a day for 30 Days Mar, Active tiZANidine HCl 2 MG 1 tablet as needed Orally twice a day as nee ded Oct, Active Tylenol Extra Strength 500 MG 2 tablets as needed Orally every 6 hrs Active Acetaminophen 325 MG 3 tablet as needed Orally 3 times a day as neede d Not-Taking Buprenorphine 5 MCG/HR 1 patch to skin Transdermal 1 per week fo r 30 days Apr, Active Ventolin HFA 108 (90 Base) MCG/ACT 2 puffs as needed I nhalation every 4 hrs for 30 day(s) Active Amphetamine-Dextroamphet ER 20 MG 1 tab Orally Once a day in afternoon for 30 Days Mar, Active Belbuca 75 MCG 1 film to the gum Bucally for pain bid for 30 da ys Apr, Active Claritin 10 MG 1 tablet Orally Once a day for 30 day(s) Active PROCEDURES No Information RESULTS No Results REASON FOR VISIT doctor to doctor MEDICAL (GENERAL) HISTORY Type Description Date Medical History ADHD - diagnosed in college Medical History Asthma - followed by pulmonary associate s Medical History GERD Medical History renal lithiasis Medical History 11/21 MRI R hip mild tendinobursitis Medical History OCD/anxiety/PTSD - responded to Zoloft i n the past Medical History 09/22 MRI L spine, L5-S1 mild disc degene ration, otherwise nl. Medical History morbid obesity Medical History cervicalgia Medical History sacroiliitis Medical History myalgia Medical History migraines Medical History depression Medical History Raynaud's Medical History Stomach ulcers Surgical History C section x 3 Surgical History EGD 2011 Surgical History colposcopy with elham 09/11/14 Surgical History Lumbar spinal injections Hospitalization History childbirth x3 Hospitalization History pneumonia age 18 Hospitalization History Depression 04/2014 Hospitalization History Depression 2018 Goals Section No Information Health Concerns No Information MEDICAL EQUIPMENT No Information MENTAL STATUS No Information FUNCTIONAL STATUS No Information ASSESSMENTS No Information PLAN OF TREATMENT Medication Medication Name Sig Start Date Stop Date Belbuca 75 MCG 1 film to the gum Bucally for pain bid for 30 da ys Apr, Next Appt Details Provider Name:Ranulfo Hernandez, 2021-06-05 02:00:00 PM, [address], , [place], [address], Provider Name:Bernadette Lakhani, 2021-06-11 07:45:00 AM, [address], , [place], [address], Insurance Providers Payer Name Payer Address Payer Phone Insured Name Patient Relati onship to Insured Coverage Start Date Coverage End Date MEDICARE Part A and B [address] [facility] [address] [phone] KECIA JACKSON self MEDICAID [id number] [address] [facility] [address] [facility]-[phone] KECIA JACKSON self
--- OUTSIDE RECORDS SUMMARY | 2021-07-17 09:04 | CCD | Continuity of Care Document ---
Author Author Yamel MADDEN MD Organization Unknown Address [address] [place] [address] Phone [phone] Care Team Providers Care Communications Operator Name Role Phone Ranulfo Hernandez MD AUTM [phone] Bernadette Lakhani RPA AUTM [phone] Problems Description No Information Available Social History Type Date Description Comments Sex Unknown Allergies, Adverse Reactions, Alerts Description No Information Available Medications Active Medications SIG Qnty Indications Ordering Provide r Date Amphetamine-Dextroamphet ER 30mg Caps ER 24HR Shahram Calvillo MD Belbuca 75mcg Film Place One Film Buccally Twice A Day Maximum Daily Dose 2 Unknown Buprenorphine 5mcg/HR Patches Weekly Ranulfo Hernandez MD Id Now Covid-19 Covid-19 Kit Test as Directed Unknown Albuterol Sulfate HFA 108(90Base) mcg/Act [facility]erosol [facility] 0 Sertraline HCL 50mg Tablets Take One Tablet By Mouth Every Day Unknown Immunizations Description No Information Available Vital Signs Date Vital Result Comment 06/11/2021 10:00am Body Temperature 96.9 F Height 59 inches 4'11" Weight 186.00 lb BMI (Body Mass Index) 37.6 kg/m2 Results Description No Information Available Procedures Date Code Description Status 06/11/2021 83946 Office/Outpatient New Moderate M DM 45-59 Minutes Completed 06/11/2021 11331 X-Ray Spine Lumbosacral Complete Inc Bending Views Min Of 6 Completed Medical Devices Description No Information Available Encounters Type Date Location Provider Dx Diagnosis Office Visit 06/11/2021 9:30a [facility] Myron Madden MD M47.896 Other spondylosis, lumbar region F11.20 Opioid dependence, uncomplic ated Assessments Date Code Description Provider 06/11/2021 M47.896 Other spondylosis, lumbar region Myron Madden MD 06/11/2021 F11.20 Opioid dependence, uncomplicated Myron Madden MD Plan of Treatment 06/11/2021 - Myron Madden MD* M47.896 Other spondylosis, lumbar region* Follow up:* prn * F11.20 Opioid dependence, uncomplicated Functional Status Description No Information Available Mental Status Description No Information Available Referrals Description No Information Available
--- OUTSIDE RECORDS SUMMARY | 2021-07-17 09:04 | CCD ---
Author Author [facility] Organization [facility] Address Unknown Phone Unavailable Care Team Providers Care Wage Analyst Name Role Phone Bernadette Lakhani Unavailable PROBLEMS Type Condition ICD9-CM Code [id number] Code Onset Dates Condition S tatus W/U Status Risk SNOMED Code Notes Problem Attention-deficit hyperactivity disorder, combined type F90.2 Active confirmed 03995901 Problem Sacroiliac joint pain M53.3 Active confirmed 571597115 Problem Morbid obesity due to excess calories E66.01 Ac tive confirmed 617304286 Problem Myalgia M79.1 Active confirmed 55114752 Problem Hip pain, right M25.551 Active confirmed 316 622286905173 Problem Cervicalgia M54.2 Active confirmed 87305174 Problem Sacroiliitis, not elsewhere classified M46.1 A ctive confirmed 36145474 Problem GIOVANNY (generalized anxiety disorder) F41.1 Activ e confirmed 30949872 Problem Generalized pain R52 Active confirmed 829 91257 Problem Intervertebral disc disorders with radiculopathy , lumbar region M51.16 Active confirmed 271575983525149 Problem Hypoglycemia E16.2 Active confirmed 5529885 03 Problem Intervertebral disc disorders with radiculopathy , lumbosacral region M51.17 Active confirmed 6304604 Problem Migraine without aura and without status migrain osus, not intractable G43.009 Active confirmed 672435977 Problem Intervertebral disc disorder with radiculopathy of lumbar region M51.16 Active confirmed 40527453 Problem Raynaud''s phenomenon without gangrene I73.00 A ctive confirmed 374701922 Problem Sacroiliitis M46.1 Active confirmed 4275020 9 ALLERGIES Allergen (clinical drug ingredient) Drug/Non Drug Allergy do cumented on EMR Reaction Allergy Type Onset Date Status NSAIDS GIbleed/ulcer Non Drug Allergy Activ e ENCOUNTERS from 1980 to 2021-04-25 Encounter Location Date Provider Diagnosis [facility] [place] [address] [place] [phone] Apr, Bernadette Lakhani Attention-deficit hyperactivity disorder , combined type F90.2 IMMUNIZATIONS Vaccine Route Administration Date Status TDAP [...] Education Language: Question Answer Notes Languages spoken: Turkmen Rastafarian: Question Answer Notes Rastafarian 13 Yazidi Drug and Alcohol Question Answer Notes Total [...] Notes Start Da te End Date Status Ventolin HFA 108 (90 Base) MCG/ACT 2 puffs as needed I nhalation every 4 hrs for 30 day(s) Active MiraLax - 1 packet mixed with 8 ounces of fluid Orally Once a day pr n Active Belbuca 75 MCG 1 film to the gum Bucally for pain bid for 30 da ys Apr, Active Multivitamin Orally daily Active Amphetamine-Dextroamphet ER 20 MG 1 tab Orally Once a day in afternoon for 30 Days Apr, Active Tylenol Extra Strength 500 MG 2 tablets as needed Orally every 6 hrs Active Cholecalciferol 50 MCG (2000 UT) 1 tablet Orally Once a day for 30 day(s) Feb, Active Salonpas 1.2-5.7-6.3 % as directed Externally Active Buprenorphine 5 MCG/HR 1 patch to skin Transdermal 1 per week fo r 30 days Apr, Active Claritin 10 MG 1 tablet Orally Once a day for 30 day(s) Active tiZANidine HCl 2 MG 1 tablet as needed Orally twice a day as nee ded 14 Oct, 2019 Active Adderall XR 30 MG 1 capsule in the morning Orally Once a day for 30 Days Apr, Active Acetaminophen 325 MG 3 tablet as needed Orally 3 times a day as neede d Not-Taking PROCEDURES No Information RESULTS No Results REASON FOR VISIT refills MEDICAL (GENERAL) HISTORY Type Description Date Medical [...] No Information FUNCTIONAL STATUS No Information ASSESSMENTS Encounter Date Diagnosis Assessment Notes Treatment Notes Treatm ent Clinical Notes Apr, Attention-deficit hyperactiv ity disorder, combined type (ICD-10 - F90.2) PLAN OF TREATMENT Medication Medication Name Sig Start Date Stop Date Amphetamine-Dextroamphet ER 20 MG 1 tab Orally Once a day in afternoon for 30 Days Apr, Adderall XR 30 MG 1 capsule in the morning Orally Once a d ay for 30 Days Apr, Belbuca 75 MCG 1 film to the gum Bucally for pain bid for 30 da ys Apr, Next Appt Details Provider Name:Ranulfo Hernandez, 2021-06-05 02:00:00 PM, [address], , [place], [address], Provider Name:Bernadette Lakhani, 2021-06-11 07:45:00 AM, [address], , [place], [address], Insurance Providers Payer Name Payer Address Payer Phone Insured Name Patient Relati onship to Insured Coverage Start Date Coverage End Date MEDICARE Part A and B [address] [facility] [phone] KECIA JACKSON MEDICAID [employer] [address] [facility] [address] KECIA JACKSON
--- OUTSIDE RECORDS SUMMARY | 2021-07-17 09:04 | CCD ---
Author Author [facility] Organization [facility] Address Unknown Phone Unavailable Care Team Providers Care Steam Station Supervisor Name Role Phone Ranulfo Hernandez Unavailable PROBLEMS Type Condition ICD9-CM Code [id number] Code Onset Dates Condition S tatus W/U Status Risk SNOMED Code Notes Problem Attention-deficit hyperactivity disorder, combined type F90.2 Active confirmed 50330802 Problem Sacroiliac joint pain M53.3 Active confirmed 861604099 Problem Morbid obesity due to excess calories E66.01 Ac tive confirmed 744486162 Problem Myalgia M79.1 Active confirmed 79088231 Problem Hip pain, right M25.551 Active confirmed 316 429942054846 Problem Cervicalgia M54.2 Active confirmed 02622048 Problem Sacroiliitis, not elsewhere classified M46.1 A ctive confirmed 21404908 Problem GIOVANNY (generalized anxiety disorder) F41.1 Activ e confirmed 90999961 Problem Generalized pain R52 Active confirmed 829 73896 Problem Intervertebral disc disorders with radiculopathy , lumbar region M51.16 Active confirmed 633887340380565 Problem Hypoglycemia E16.2 Active confirmed 8875362 03 Problem Intervertebral disc disorders with radiculopathy , lumbosacral region M51.17 Active confirmed 1722318 Problem Migraine without aura and without status migrain osus, not intractable G43.009 Active confirmed 871548919 Problem Intervertebral disc disorder with radiculopathy of lumbar region M51.16 Active confirmed 69981479 Problem Raynaud''s phenomenon without gangrene I73.00 A ctive confirmed 677451885 Problem Sacroiliitis M46.1 Active confirmed 1588275 9 ALLERGIES Allergen (clinical drug ingredient) Drug/Non Drug Allergy do cumented on EMR Reaction Allergy Type Onset Date Status NSAIDS GIbleed/ulcer Non Drug Allergy Activ e ENCOUNTERS from 1982 to 2021-04-19 Encounter Location Date Provider Diagnosis [facility] [address] [facility] 3rd Floor [phone] [place] [address] Apr, Ranulfo Hernandez IMMUNIZATIONS Vaccine Route Administration [...] Education Language: Question Answer Notes Languages spoken: Citizen Of [place] Confucianism: Question Answer Notes Confucianism 13 Taoism Drug and Alcohol Question Answer Notes Total [...] Information RESULTS No Results REASON FOR VISIT P/A BELBUCA 75 MCG FILMS MEDICAL (GENERAL) HISTORY Type Description Date Medical [...] Provider Name:Ranulfo Hernandez, 2021-06-05 02:00:00 PM, [address], , [place], [address], Provider Name:Bernadette Lakhani, 2021-06-11 07:45:00 AM, [address], , [place], [address], Insurance Providers Payer Name Payer Address Payer Phone Insured Name Patient Relati onship to Insured Coverage Start Date Coverage End Date MEDICARE Part A and B [address] [facility] [address] [phone] KECIA JACKSON self MEDICAID [employer] [address] [facility] [address] KECIA JACKSON self
--- OUTSIDE RECORDS SUMMARY | 2021-07-17 09:04 | CCD ---
Author Author [facility] Organization [facility] Address Unknown Phone Unavailable Care Team Providers Care Cutter And Paster Press Clippings Name Role Phone Ranulfo Hernandez Unavailable PROBLEMS Type Condition ICD9-CM Code [id number] Code Onset Dates Condition S tatus W/U Status Risk SNOMED Code Notes Problem Attention-deficit hyperactivity disorder, combined type F90.2 Active confirmed 27645135 Problem Sacroiliac joint pain M53.3 Active confirmed 100535821 Problem Morbid obesity due to excess calories E66.01 Ac tive confirmed 982857129 Problem Myalgia M79.1 Active confirmed 38805287 Problem Hip pain, right M25.551 Active confirmed 316 938544294276 Problem Cervicalgia M54.2 Active confirmed 27783551 Problem Sacroiliitis, not elsewhere classified M46.1 A ctive confirmed 52841224 Problem GIOVANNY (generalized anxiety disorder) F41.1 Activ e confirmed 06546302 Problem Generalized pain R52 Active confirmed 829 10900 Problem Intervertebral disc disorders with radiculopathy , lumbar region M51.16 Active confirmed 545461708525757 Problem Hypoglycemia E16.2 Active confirmed 1627142 03 Problem Intervertebral disc disorders with radiculopathy , lumbosacral region M51.17 Active confirmed 3809730 Problem Migraine without aura and without status migrain osus, not intractable G43.009 Active confirmed 862861538 Problem Intervertebral disc disorder with radiculopathy of lumbar region M51.16 Active confirmed 13039846 Problem Raynaud''s phenomenon without gangrene I73.00 A ctive confirmed 173962501 Problem Sacroiliitis M46.1 Active confirmed 6241044 9 ALLERGIES Allergen (clinical drug ingredient) Drug/Non Drug Allergy do cumented on EMR Reaction Allergy Type Onset Date Status NSAIDS GIbleed/ulcer Non Drug Allergy Activ e ENCOUNTERS from 1982 to 2021-04-28 Encounter Location Date Provider Diagnosis [facility] [address] [facility] 3rd Floor [phone] [place] [address] Apr, Ranulfo Hernandez Right leg pain M79.6 04 and Neuropathic pain M79.2 IMMUNIZATIONS Vaccine Route Administration Date Status TDAP [...] Education Language: Question Answer Notes Languages spoken: Frisian Evangelical: Question Answer Notes Evangelical 13 Mu-Ism Drug and Alcohol Question Answer Notes Total [...] REASON FOR REFERRAL No Information VITAL SIGNS Weight 186.8 lbs Apr, Height 59" in Apr, BMI 37.72 kg/m2 Apr, Heart Rate 75 /min Apr, Respiratory Rate 16 /min Apr, Temperature 98 degrees Fahrenheit Apr, MEDICATIONS Medication SIG (Take, Route, Frequency, Duration) [...] every 6 hrs Active Cholecalciferol 50 MCG (1999) 1 tablet Orally Once a day for [...] a day as nee ded Oct, Active Adderall XR 30 MG 1 capsule in the morning Orally Once a day for 30 Days Apr, Active Acetaminophen 325 MG 3 tablet as needed Orally 3 times a day as neede d Not-Taking PROCEDURES No Information RESULTS No Results REASON FOR VISIT evaluate medication per Dr. Camejo MEDICAL (GENERAL) HISTORY Type Description Date Medical History ADHD - diagnosed in [facility] Medical History Asthma - followed by pulmonary [...] Treatment Notes Treatm ent Clinical Notes Apr, Right leg pain (ICD-10 - M79.604) I discussed alternatives with Ms. Ocampo. The patient is having a reaction to the patch so I will request Belbuca 75 mcg film. For the Tizanidine, she will cut it in half. I had a discussed with ehr about the Tylenol and she will reduce it to 4 a day. We willl also need a doctor to doctor agreement. I will need to discuss the case with Dr. Ruiz. I will follow up with her in 3 weeks. ISTOP number [id number]. Urine tox dated 04/05/2021 shows concordant results. The patient reports understanding and agrees with the plan. I, Alee Soriano, documented the above information acting as a scribe for Dr. Hernandez. I have reviewed the above document, written by Alee Soriano medical accounts receivable specialist, and I verify that it is accurate. Apr, Neuropathic pain (ICD-10 - M79.2) PLAN OF TREATMENT Medication Medication Name Sig Start Date Stop Date Amphetamine-Dextroamphet ER 20 MG 1 tab Orally Once a day in afternoon for 30 Days Apr, Adderall XR 30 MG 1 capsule in the morning Orally Once a d ay for 30 Days Apr, Belbuca 75 MCG 1 film to the gum Bucally for pain bid for 30 da ys Apr, Treatment Notes Assessment Notes Clinical Notes Right leg pain I discussed inna zamora with Ms. Ocampo. The patient is having a reaction to the patch so I will request Belbuca 75 mcg film. For the Tizanidine, she will cut it in half. I had a discussed with ehr about the Tylenol and she will reduce it to 4 a day. We willl also need a doctor to doctor agreement. I will need to discuss the case with Dr. Ruiz. I will follow up with her in 3 weeks. ISTOP number [id number]. Urine tox dated 04/05/2021 shows concordant results. The patient reports understanding and agrees with the plan. I, Alee Soriano, documented the above information acting as a scribe for Dr. Hernandez. I have reviewed the above document, written by Alee Soriano, medical accounts receivable specialist, and I verify that it is accurate. Next Appt Details Follow up in 3 weeks Reason:Check medica tion status Provider Name:Ranulfo Hernandez, 2021-06-05 02:00:00 PM, [address], , [place], [address], Provider Name:Bernadette Lakhani, 2021-06-11 07:45:00 AM, [address], , [place], [address], Follow Up:Follow up in 3 weeksCheck medication status Insurance Providers Payer Name Payer Address Payer Phone Insured Name Patient Relati onship to Insured Coverage Start Date Coverage End Date MEDICARE Part A and B [address] [facility] [address] KECIA OCAMPO MEDICAID [employer] [address] [facility] [address] KECIA OCAMPO self
--- OUTSIDE RECORDS SUMMARY | 2021-07-17 09:04 | CCD | Continuity of Care Document ---
Author Author Yamel MADDEN MD Organization Unknown Address [address] [place] [address] Phone [phone] Care Team Providers Care Field Representative Name Role Phone Ranulfo Hernandez MD AUTM [phone] Bernadette Lakhani RPA AUTM [phone] Problems Description No Information Available Social History Type Date Description Comments Sex Unknown Allergies and adverse reactions Description No Known Drug Allergies Medications Active Medications SIG Qnty Indications Ordering Provide r Date Amphetamine-Dextroamphet ER 30mg Caps ER 24HR Shahram Calvillo MD Belbuca 75mcg Film Place One Film Buccally Twice A Day Maximum Daily Dose 2 Unknown Buprenorphine 5mcg/HR Patches Weekly Ranulfo Hernandez MD Id Now Covid-19 Covid-19 Kit Test as Directed Unknown Albuterol Sulfate HFA 108(90Base) mcg/Act Aerosol [facility], RPA 0 Sertraline HCL 50mg Tablets Take One Tablet By Mouth Every Day Unknown Immunizations Description No Information Available Vital Signs Date Vital Result Comment 06/11/2021 10:00am Body Temperature 96.9 F Height 59 inches 4'11" Weight 186.00 lb BMI (Body Mass Index) 37.6 kg/m2 Results Description No Information Available Procedures Date Code Description Status 06/11/2021 15454 Office/Outpatient New Moderate M DM 45-59 Minutes Completed 06/11/2021 35494 X-Ray Spine Lumbosacral Complete Inc Bending Views Min Of 6 Completed Medical Devices Description No Information Available Encounters Type Date Location Provider Dx Diagnosis Office Visit 06/11/2021 9:30a [place] Myron Madden MD M47.896 Other spondylosis, lumbar region Assessments Date Code Description Provider 06/11/2021 M47.896 Other spondylosis, lumbar region Myron Madden MD Plan of Treatment 06/11/2021 - Myron Madden MD* M47.896 Other spondylosis, lumbar region* Follow up:* prn Functional Status Description No Information Available Mental Status Description No Information Available Referrals Description No Information Available
--- OUTSIDE RECORDS SUMMARY | 2021-07-17 09:04 | CCD ---
Author Author [facility] Organization [facility] Address Unknown Phone Unavailable Care Team Providers Care Phototypesetting Equipment Monitor Name Role Phone Ranulfo Hernandez Unavailable PROBLEMS Type Condition ICD9-CM Code [id number] Code Onset Dates Condition S tatus W/U Status Risk SNOMED Code Notes Problem Attention-deficit hyperactivity disorder, combined type F90.2 Active confirmed 62052136 Problem Sacroiliac joint pain M53.3 Active confirmed 454494207 Problem Morbid obesity due to excess calories E66.01 Ac tive confirmed 473212322 Problem Myalgia M79.1 Active confirmed 39687835 Problem Hip pain, right M25.551 Active confirmed 316 493604215550 Problem Cervicalgia M54.2 Active confirmed 87160248 Problem Sacroiliitis, not elsewhere classified M46.1 A ctive confirmed 69443988 Problem GIOVANNY (generalized anxiety disorder) F41.1 Activ e confirmed 43586535 Problem Generalized pain R52 Active confirmed 829 35371 Problem Intervertebral disc disorders with radiculopathy , lumbar region M51.16 Active confirmed 512201119408516 Problem Hypoglycemia E16.2 Active confirmed 2144414 03 Problem Intervertebral disc disorders with radiculopathy , lumbosacral region M51.17 Active confirmed 8608212 Problem Migraine without aura and without status migrain osus, not intractable G43.009 Active confirmed 512016887 Problem Intervertebral disc disorder with radiculopathy of lumbar region M51.16 Active confirmed 60039360 Problem Raynaud''s phenomenon without gangrene I73.00 A ctive confirmed 233075918 Problem Sacroiliitis M46.1 Active confirmed 4593643 9 ALLERGIES Allergen (clinical drug ingredient) Drug/Non Drug Allergy do cumented on EMR Reaction Allergy Type Onset Date Status NSAIDS GIbleed/ulcer Non Drug Allergy Activ e ENCOUNTERS from 1982 to 2021-05-07 Encounter Location Date Provider Diagnosis [facility] [address] [facility] 3rd Floor [phone] [place] [address] Apr, Ranulfo Hernandez IMMUNIZATIONS Vaccine Route Administration [...] Education Language: Question Answer Notes Languages spoken: [place] Presybeterian: Question Answer Notes Presybeterian 13 Gnosticist Drug and Alcohol Question Answer Notes Total [...] every 6 hrs Active Cholecalciferol 50 MCG (1999 UT) 1 tablet [...] Information RESULTS No Results REASON FOR VISIT ortho referral MEDICAL (GENERAL) HISTORY Type Description Date Medical [...] History EGD 2011 Surgical History colposcopy with leham 09/11/14 Surgical History Lumbar spinal injections Hospitalization [...] Provider Name:Ranulfo Hernandez, 2021-06-05 02:00:00 PM, [address], , [place], [address], Provider Name:Bernadette Lakhani, 2021-06-11 07:45:00 AM, [address], , [place], [address], Insurance Providers Payer Name Payer Address Payer Phone Insured Name Patient Relati onship to Insured Coverage Start Date Coverage End Date MEDICAID [employer] [address] [facility] [address] KECIA JACKSON MEDICARE Part A and B [address] [facility] [address] KECIA JACKSON self
--- OUTSIDE RECORDS SUMMARY | 2021-07-17 09:04 | CCD ---
Author Author [facility] Organization [facility] Address Unknown Phone Unavailable Care Team Providers Care Outside Plant Cable Engineer Name Role Phone Shahram Calvillo Unavailable PROBLEMS Type Condition ICD9-CM Code [id number] Code Onset Dates Condition S tatus W/U Status Risk SNOMED Code Notes Problem Attention-deficit hyperactivity disorder, combined type F90.2 Active confirmed 77074286 Problem Sacroiliac joint pain M53.3 Active confirmed 468466647 Problem Morbid obesity due to excess calories E66.01 Ac tive confirmed 053950233 Problem Myalgia M79.1 Active confirmed 27224055 Problem Hip pain, right M25.551 Active confirmed 316 150422356176 Problem Cervicalgia M54.2 Active confirmed 08938048 Problem Sacroiliitis, not elsewhere classified M46.1 A ctive confirmed 88485356 Problem GIOVANNY (generalized anxiety disorder) F41.1 Activ e confirmed 78426463 Problem Generalized pain R52 Active confirmed 829 55171 Problem Intervertebral disc disorders with radiculopathy , lumbar region M51.16 Active confirmed 781797204937967 Problem Hypoglycemia E16.2 Active confirmed 5591782 03 Problem Intervertebral disc disorders with radiculopathy , lumbosacral region M51.17 Active confirmed 0821856 Problem Migraine without aura and without status migrain osus, not intractable G43.009 Active confirmed 369890115 Problem Intervertebral disc disorder with radiculopathy of lumbar region M51.16 Active confirmed 46375165 Problem Raynaud''s phenomenon without gangrene I73.00 A ctive confirmed 357460208 Problem Sacroiliitis M46.1 Active confirmed 7747910 9 ALLERGIES Allergen (clinical drug ingredient) Drug/Non Drug Allergy do cumented on EMR Reaction Allergy Type Onset Date Status NSAIDS GIbleed/ulcer Non Drug Allergy Activ e ENCOUNTERS from 1982 to 2021-06-03 Encounter Location Date Provider Diagnosis [facility] [phone] [place] [address] May, Shahram Calvillo Attention-deficit hyperactiv ity disorder, combined type F90.2 IMMUNIZATIONS Vaccine Route Administration [...] Education Language: Question Answer Notes Languages spoken: Czech Episcopalian: Question Answer Notes Episcopalian 13 Taoist Drug and Alcohol Question Answer Notes Total [...] Notes Start Da te End Date Status Tylenol Extra Strength 500 MG 2 tablets as needed Orally every 6 hrs Active Acetaminophen 325 MG 3 tablet as needed Orally 3 times a day as neede d Not-Taking MiraLax - 1 packet mixed with 8 ounces of fluid Orally Once a day pr n Active Salonpas 1.2-5.7-6.3 % as directed Externally Active Multivitamin Orally daily Active Adderall XR 30 MG 1 capsule in the morning Orally Once a day for 30 Days May, Active tiZANidine HCl 2 MG 1 tablet as needed Orally twice a day as nee ded Oct, Active Claritin 10 MG 1 tablet Orally Once a day for 30 day(s) Active Buprenorphine 5 MCG/HR 1 patch to skin Transdermal 1 per week fo r 30 days Apr, Active Cholecalciferol 50 MCG (1999) 1 tablet Orally Once a day for 30 day(s) Feb, Active Amphetamine-Dextroamphet ER 20 MG 1 tab Orally Once a day in afternoon for 30 Days May, Active Belbuca 75 MCG 1 film to the gum Bucally for pain bid for 30 da ys Apr, Active Ventolin HFA 108 (90 Base) MCG/ACT 2 puffs as needed I nhalation every 4 hrs for 30 day(s) Active PROCEDURES No Information RESULTS No Results REASON FOR VISIT adderall MEDICAL (GENERAL) HISTORY Type Description Date Medical [...] Notes Treatment Notes Treatm ent Clinical Notes May, Attention-deficit hyperactiv ity disorder, combined type (ICD-10 - F90.2) PLAN OF TREATMENT Medication Medication Name Sig Start Date Stop Date Adderall XR 30 MG 1 capsule in the morning Orally Once a d ay for 30 Days May, Belbuca 75 MCG 1 film to the gum Bucally for pain bid for 30 da ys Apr, Amphetamine-Dextroamphet ER 20 MG 1 tab Orally Once a day in afternoon for 30 Days May, Next Appt Details Provider Name:Ranulfo Hernandez, 2021-06-05 02:00:00 PM, [address], , [place], [address], Provider Name:Bernadette Lakhani, 2021-06-11 07:45:00 AM, [address], , [place], [address], Insurance Providers Payer Name Payer Address Payer Phone Insured Name Patient Relati onship to Insured Coverage Start Date Coverage End Date MEDICARE Part A and B [address] [facility] [phone] KECIA JACKSON MEDICAID [employer] [address] [facility] [id number] KECIA JACKSON self
--- OUTSIDE RECORDS SUMMARY | 2021-07-17 09:04 | CCD ---
Author Author [facility] Organization [facility] Address Unknown Phone Unavailable Care Team Providers Care Sciences Dean Name Role Phone Ranulfo Hernandez Unavailable PROBLEMS Type Condition ICD9-CM Code [id number] Code Onset Dates Condition S tatus W/U Status Risk SNOMED Code Notes Problem Attention-deficit hyperactivity disorder, combined type F90.2 Active confirmed 47752810 Problem Generalized pain R52 Active confirmed 829 22121 Problem Hypoglycemia E16.2 Active confirmed 8988867 03 Problem Morbid obesity due to excess calories E66.01 Ac tive confirmed 859039251 Problem Intervertebral disc disorders with radiculopathy , lumbosacral region M51.17 Active confirmed 3434828 Problem GIOVANNY (generalized anxiety disorder) F41.1 Activ e confirmed 90278534 Problem Migraine without aura and without status migrain osus, not intractable G43.009 Active confirmed 443941572 ALLERGIES Allergen (clinical drug ingredient) Drug/Non Drug Allergy do cumented on EMR Reaction Allergy Type Onset Date Status Tolmetin NSAIDs GIbleed/ulcer Drug Allergy Active ENCOUNTERS from 1982 to 2021-06-25 Encounter Location Date Provider Diagnosis [facility] [address] [facility] 3rd Floor [phone] [place] [address] Jun, Ranulfo Hernandez Right leg pain M79.6 04 IMMUNIZATIONS Vaccine Route Administration Date Status TDAP [...] Education Language: Question Answer Notes Languages spoken: Sami Gnosticist: Question Answer Notes Gnosticist 13 Quaker Drug and Alcohol Question Answer Notes Total [...] Notes Start Da te End Date Status MiraLax - 1 packet mixed with 8 ounces of fluid Orally Once a day pr n Active Adderall XR 30 MG 1 capsule in the morning Orally Once a day for 30 Days May, Active Amphetamine-Dextroamphet ER 20 MG 1 tab Orally Once a day in afternoon for 30 Days May, Active Salonpas 1.2-5.7-6.3 % as directed Externally Active Ventolin HFA 108 (90 Base) MCG/ACT 2 puffs as needed I nhalation every 4 hrs for 30 day(s) Active tiZANidine HCl 2 MG 1 tablet as needed Orally twice a day as nee ded Oct, Active Tylenol Extra Strength 500 MG 2 tablets as needed Orally every 6 hrs Active Claritin 10 MG 1 tablet Orally Once a day for 30 day(s) Active Buprenorphine 5 MCG/HR 1 patch to skin Transdermal 1 per week fo r 30 days Apr, Active Multivitamin Orally daily Active Cholecalciferol 50 MCG (1999 UT) 1 tablet Orally Once a day for 30 day(s) Feb, Active Belbuca 75 MCG 1 film to the gum Bucally for pain bid for 30 da ys Jun, Active Acetaminophen 325 MG 3 tablet as needed Orally 3 times a day as neede d Not-Taking PROCEDURES No Information RESULTS No Results REASON FOR VISIT refill Belbuca MEDICAL (GENERAL) HISTORY Type Description Date Medical [...] Notes Treatment Notes Treatm ent Clinical Notes Jun, Right leg pain (ICD-10 - M79.604) PLAN OF TREATMENT Medication Medication Name Sig Start Date Stop Date Belbuca 75 MCG 1 film to the gum Bucally for pain bid for 30 da ys Jun, Next Appt Details Provider Name:Ranulfo Hernandez, 2021-07-15 09:30:00 AM, [address], , [place], [address], Provider Name:Bernadette Lakhani, 2021-09-10 08:00:00 AM, [address], , [place], [address], Insurance Providers Payer Name Payer Address Payer Phone Insured Name Patient Relati onship to Insured Coverage Start Date Coverage End Date MEDICAID [employer] [address] [facility] [address] KECIA JACKSON MEDICARE Part A and B [address] [facility] [address] KECIA JACKSON
--- OUTSIDE RECORDS SUMMARY | 2021-07-17 09:04 | CCD ---
Author Author [facility] Organization [facility] Address Unknown Phone Unavailable Care Team Providers Care Dry Charge Process Attendant Name Role Phone Bernadette Lakhani Unavailable PROBLEMS Type Condition ICD9-CM Code [id number] Code Onset Dates Condition S tatus W/U Status Risk SNOMED Code Notes Problem Attention-deficit hyperactivity disorder, combined type F90.2 Active confirmed 78436123 Problem Generalized pain R52 Active confirmed 829 37424 Problem Hypoglycemia E16.2 Active confirmed 2249231 03 Problem Morbid obesity due to excess calories E66.01 Ac tive confirmed 012844552 Problem Intervertebral disc disorders with radiculopathy , lumbosacral region M51.17 Active confirmed 1563728 Problem GIOVANNY (generalized anxiety disorder) F41.1 Activ e confirmed 69916545 Problem Migraine without aura and without status migrain osus, not intractable G43.009 Active confirmed [id number] ALLERGIES Allergen (clinical drug ingredient) Drug/Non Drug Allergy do cumented on EMR Reaction Allergy Type Onset Date Status NSAIDS GIbleed/ulcer Non Drug Allergy Activ e ENCOUNTERS from 1982 to 2021-06-13 Encounter Location Date Provider Diagnosis [facility] [address] [place] [address] Jun, Bernadette Lakhani Attention-deficit hyperactivity disorder , combined type F90.2 ; Morbid obesity due to excess calories E66.01 ; Intervertebral disc disorders with radiculopathy, lumbosacral region M51.17 ; GIOVANNY (generalized anxiety disorder) F41.1 ; Migraine without aura and without status migrainosus, not intractable G43.009 and Vaccine counseling Z71.85 IMMUNIZATIONS Vaccine Route Administration Date Status TDAP [...] Education Language: Question Answer Notes Languages spoken: Qatari Advent: Question Answer Notes Advent 13 [facility] Question Answer Notes Total [...] FOR REFERRAL No Information VITAL SIGNS Weight 189 lbs Jun, Height 59" in Jun, BMI 38.17 kg/m2 Jun, Heart Rate 101 /min Jun, Respiratory Rate 18 /min Jun, Temperature 98.1 degrees Fahrenheit Jun, Oximetry 96 Jun, Blood pressure systolic 130 mm Hg Jun, Blood pressure diastolic 88 mm Hg Jun, MEDICATIONS Medication SIG (Take, Route, Frequency, Duration) [...] Salonpas 1.2-5.7-6.3 % as directed Externally Active Belbuca 75 MCG 1 film to the gum [place] for pain bid for 30 da ys Apr, Active tiZANidine HCl 2 MG 1 tablet [...] Multivitamin Orally daily Active Cholecalciferol 50 MCG (2000 UT) 1 tablet Orally Once a day for 30 day(s) Feb, Active Ventolin HFA 108 (90 Base) MCG/ACT 2 puffs as needed I nhalation every 4 hrs for 30 day(s) Active Acetaminophen 325 MG 3 tablet as needed Orally 3 times a day as neede d Not-Taking PROCEDURES No Information RESULTS No Results REASON FOR VISIT 3 month/labs prior MEDICAL (GENERAL) HISTORY Type Description Date Medical [...] Treatment Notes Treatm ent Clinical Notes Jun, Attention-deficit hyperactiv ity disorder, combined type (ICD-10 - F90.2) Symptoms controlled. Jun, Morbid obesity due to excess calories (ICD-10 - E66.01) Pt was counselled on the importance of diet and exercise in maintaining a healthy weight and that patients weight currently poses a health risk. Pt verbalizes understanding Jun, Intervertebral disc disorder s with radiculopathy, lumbosacral region (ICD-10 - M51.17) Jun, GIOVANNY (generalized anxiety disorder) (ICD-10 - F41 .1) Symptoms stable. They are currently struggling with the unexpected passing of her 's father and her special needs son is struggling to process this. Jun, Migraine without aura and wi thout status migrainosus, not intractable (ICD-10 - G43.009) Stable. Jun, Vaccine counseling (ICD-10 - Z71.85) Jun, Other Pt to call to [employer] appt for [employer] [facility]. COVID vaccine counseling done - cont to decline. PLAN OF TREATMENT Treatment Notes Assessment Notes Clinical Notes Attention-deficit hyperactivity disorder, combined type Symp toms controlled. Morbid obesity due to excess calories Pt was counselle d on the importance of diet and exercise in maintaining a healthy weight and that patients weight currently poses a health risk. Pt verbalizes understanding GIOVANNY (generalized anxiety disorder) Symptoms stable. Maldonado campbell are currently struggling with the unexpected passing of her 's father and her special needs son is struggling to process this. Migraine without aura and without status migrainosus, not in tractable Stable. Next Appt Details 3 Months Reason: Provider Name:Ranulfo Hernandez, 2021-07-15 09:30:00 AM, [address], , [place], [address], Provider Name:Bernadette Lakhani, 2021-09-10 08:00:00 AM, [address], , [place], [address], Insurance Providers Payer Name Payer Address Payer Phone Insured Name Patient Relati onship to Insured Coverage Start Date Coverage End Date MEDICARE Part A and B [address] [facility] [id number] KECIA JACKSON MEDICAID [facility] Listen Up [address] [facility] [address] [employer]
[2021-07-17 09:15] VITALS: BP 122/60
== END 2021-07-17 09:42 | disposition home or self-care (01) ==
LOC: EDBD 07:09 → M ED 07:09
DX: J45.901 Unspecified asthma with (acute) exacerbation (principal); K21.9 Gastro-esophageal reflux disease without esophagitis; F41.9 Anxiety disorder, unspecified; F43.10 Post-traumatic stress disorder, unspecified; F42.9 Obsessive-compulsive disorder, unspecified; Z79.899 Other long term (current) drug therapy; Z88.8 Allergy status to other drugs, medicaments and biological substances
CPT/HCPCS: 99284; U0003

== ENCOUNTER → 2021-10-15 | Outpatient (CLI) | payer MEDICARE, MEDICAID ==
[~2021-10-15] MED LIST changes: +ALBU83IN NEB; +BELB75MI; +EASYMIS17 XX; +PRED20TA PO
== END ==
LOC: M PAIN 09:30
PROVIDERS: ATTEND Nurse Practitioner Family
DX: M51.17 Intervertebral disc disorders with radiculopathy, lumbosacral region (principal); G89.29 Other chronic pain; J45.909 Unspecified asthma, uncomplicated; M79.10 Myalgia, unspecified site; G43.909 Migraine, unspecified, not intractable, without status migrainosus; Z86.59 Personal history of other mental and behavioral disorders; Z88.5 Allergy status to narcotic agent; Z88.6 Allergy status to analgesic agent; Z79.891 Long term (current) use of opiate analgesic; Z79.899 Other long term (current) drug therapy

== ENCOUNTER → 2022-02-05 | Outpatient (CLI) | payer MEDICARE, MEDICAID ==
[~2022-02-05] MED LIST changes: +ALBU2.5V10 NEB; -ALBU83IN NEB
== END ==
LOC: M PAIN 10:15
PROVIDERS: ATTEND Anesthesiology
DX: M79.604 Pain in right leg (principal); M79.2 Neuralgia and neuritis, unspecified; F90.9 Attention-deficit hyperactivity disorder, unspecified type; J45.909 Unspecified asthma, uncomplicated; K21.9 Gastro-esophageal reflux disease without esophagitis; F41.9 Anxiety disorder, unspecified; F43.10 Post-traumatic stress disorder, unspecified; M54.2 Cervicalgia; F42.9 Obsessive-compulsive disorder, unspecified; M79.10 Myalgia, unspecified site; G43.909 Migraine, unspecified, not intractable, without status migrainosus; E53.8 Deficiency of other specified B group vitamins; F32.A Depression, unspecified; I73.00 Raynaud's syndrome without gangrene; Z87.11 Personal history of peptic ulcer disease; Z87.442 Personal history of urinary calculi; Z79.899 Other long term (current) drug therapy; Z88.6 Allergy status to analgesic agent; Z88.8 Allergy status to other drugs, medicaments and biological substances
CPT/HCPCS: 36415; 82607; 82746; G0463

== ENCOUNTER → 2022-02-05 | Outpatient (CLI) | payer MEDICARE, MEDICAID ==
[2022-02-05 13:02] LABS: FOLATE 11.2 NG/ML (>5.4)
== END ==
LOC: M LAB 11:35
PROVIDERS: ATTEND Psychiatry & Neurology Neurology
DX: E53.8 Deficiency of other specified B group vitamins (principal)

== ENCOUNTER → 2022-03-26 | Outpatient (CLI) | payer MEDICARE, MEDICAID | LOC: M RAD 16:04 | PROVIDERS: ATTEND Anesthesiology | DX: M79.604 Pain in right leg (principal) ==

== ENCOUNTER 2022-04-13 16:16 | Inpatient (IN) | payer MEDICARE, MEDICAID ==
[~2022-04-13] VITALS: Ht 149.9 cm; Wt 80.6 kg
[2022-04-13] MEDS ORDERED: NS 1,000 ML IV ONE (16:25)
[2022-04-13 16:40] LABS: BASO % 0.3 % (0.0-1.0); EOS # 0.3 10^3/uL (0.0-0.5); EOS % 2.9 % (0.0-3.0); HEMATOCRIT 46.1 % (36.0-47.0); HEMOGLOBIN 14.8 g/dl (12.0-15.5); LYMPH % 27.4 % (24.0-44.0); MEAN CORPUSCULAR HEMOGLOBIN 30.6 pg (27.0-33.0); MEAN CORPUSCULAR HGB CONC 32.1 g/dl (32.0-36.5); MEAN CORPUSCULAR VOLUME 95.2 fl (80.0-96.0); MONO # 0.8 10^3/uL (0.0-0.8); NEUTROPHILS # 6.7 10^3/uL (1.5-8.5); NEUTROPHILS % 61.9 % (36.0-66.0); PLATELET COUNT, AUTOMATED 345 10^3/uL (150-450); RED BLOOD COUNT 4.84 10^6/uL (4.00-5.40); WHITE BLOOD COUNT 10.9 10^3/uL (4.0-10.0)
[2022-04-13 17:12] LABS: ACETAMINOPHEN LEVEL 26.1 UG/ML (10.0-30.0); ALBUMIN 3.6 GM/DL (3.2-5.2); ALT/SGPT 21 U/L (12-78); BILIRUBIN,DIRECT < 0.1 MG/DL (0.0-0.2); BILIRUBIN,TOTAL 0.3 MG/DL (0.2-1.0); BLOOD UREA NITROGEN 13 MG/DL (7-18); CALCIUM LEVEL 9.6 MG/DL (8.5-10.1); CARBON DIOXIDE LEVEL 27 MEQ/L (21-32); CHLORIDE LEVEL 106 MEQ/L (98-107); CREATININE FOR GFR 0.74 MG/DL (0.55-1.30); ETHYL ALCOHOL (ETHANOL) < 0.003 % (0.000-0.010); GLOMERULAR FILTRATION RATE > 60.0 (>60); GLUCOSE, FASTING 130 MG/DL (70-100); POTASSIUM SERUM 4.6 MEQ/L (3.5-5.1); SALICYLATE LEVEL < 1.7 MG/DL (5.0-30.0); SODIUM LEVEL 138 MEQ/L (136-145); TOTAL PROTEIN 7.3 GM/DL (6.4-8.2)
[2022-04-13] MEDS ORDERED: NEBUMIS2 (17:22)
[2022-04-13] MEDS ORDERED: [UNRECOGNIZED DRUG - OTHER] (17:22)
[2022-04-13] MEDS ORDERED: ACET300T48 PO (17:25)
[2022-04-13] MEDS ORDERED: HOME MED LIST COMPLETE! XX SCH (17:25)
[2022-04-13] MEDS: PANTOPRAZOLE 40MG VIAL IV SCH (21:00)
[2022-04-14 00:47] LABS: RSV AMPLIFICATION NEGATIVE (NEGATIVE)
[2022-04-14 00:53] LABS: AMPHETAMINES LEVEL URINE POSITIVE (NEGATIVE); BARBITURATES URINE NEGATIVE (NEGATIVE); BENZODIAZEPINES URINE NEGATIVE (NEGATIVE); CANNABINOIDS URINE NEGATIVE (NEGATIVE); COCAINE METABOLITE URINE NEGATIVE (NEGATIVE); METHADONE URINE NEGATIVE (NEGATIVE); OPIATES URINE POSITIVE (NEGATIVE); PHENCYCLIDINE URINE NEGATIVE (NEGATIVE)
[2022-04-14 08:07] LABS: ALBUMIN 3.1 GM/DL (3.2-5.2); ALT/SGPT 45 U/L (12-78); BILIRUBIN,TOTAL 0.6 MG/DL (0.2-1.0); BLOOD UREA NITROGEN 8 MG/DL (7-18); CALCIUM LEVEL 9.2 MG/DL (8.5-10.1); CARBON DIOXIDE LEVEL 25 MEQ/L (21-32); CHLORIDE LEVEL 109 MEQ/L (98-107); CREATININE FOR GFR 0.46 MG/DL (0.55-1.30); FREE T4 0.94 NG/DL (0.76-1.46); GLOMERULAR FILTRATION RATE > 60.0 (>60); GLUCOSE, FASTING 91 MG/DL (70-100); POTASSIUM SERUM 3.9 MEQ/L (3.5-5.1); SODIUM LEVEL 139 MEQ/L (136-145); TOTAL PROTEIN 6.3 GM/DL (6.4-8.2)
[2022-04-14] MEDS: PANTOPRAZOLE 40MG VIAL IV SCH (10:44)
[2022-04-14] MEDS: ALBUTEROL SULFATE 2.5 MG/0.5 ML INH NEB SOLN NEB SCH (20:40)
[2022-04-15 07:01] LABS: HEMATOCRIT 43.4 % (36.0-47.0); MEAN CORPUSCULAR HEMOGLOBIN 30.6 pg (27.0-33.0); MEAN CORPUSCULAR HGB CONC 32.3 g/dl (32.0-36.5); PLATELET COUNT, AUTOMATED 323 10^3/uL (150-450); RED BLOOD COUNT 4.57 10^6/uL (4.00-5.40); WHITE BLOOD COUNT 7.5 10^3/uL (4.0-10.0)
[2022-04-15 07:42] LABS: ALBUMIN 3.1 GM/DL (3.2-5.2); ALT/SGPT 38 U/L (12-78); BILIRUBIN,TOTAL 0.3 MG/DL (0.2-1.0); BLOOD UREA NITROGEN 10 MG/DL (7-18); CALCIUM LEVEL 9.4 MG/DL (8.5-10.1); CARBON DIOXIDE LEVEL 28 MEQ/L (21-32); CHLORIDE LEVEL 108 MEQ/L (98-107); CREATININE FOR GFR 0.56 MG/DL (0.55-1.30); GLOMERULAR FILTRATION RATE > 60.0 (>60); GLUCOSE, FASTING 97 MG/DL (70-100); SODIUM LEVEL 141 MEQ/L (136-145); TOTAL PROTEIN 6.3 GM/DL (6.4-8.2)
[2022-04-15] MEDS: ALBUTEROL SULFATE 2.5 MG/0.5 ML INH NEB SOLN NEB SCH ×5 (08:00→19:55)
[2022-04-15] MEDS: PANTOPRAZOLE 40MG TAB (PROTONIX) PO SCH (08:44)
[2022-04-15] MEDS: ENOXAPARIN 30MG/0.3ML SYRINGE (J1650 PER 10MG) SC SCH (08:46)
[2022-04-15] MEDS ORDERED: ALBU2.5V10 INH (09:23)
[2022-04-15] MEDS ORDERED: PANT40TA29 PO (09:23)
[2022-04-15] MEDS: LORazepam 0.5 MG TAB PO SCH (21:03)
[2022-04-15] MEDS: RAMELTEON 8 MG TAB (ROZEREM) PO SCH (21:03)
[2022-04-16] MEDS: ALBUTEROL SULFATE 2.5 MG/0.5 ML INH NEB SOLN NEB SCH ×4 (08:00→20:00)
[2022-04-16] MEDS: PANTOPRAZOLE 40MG TAB (PROTONIX) PO SCH (10:19)
[2022-04-16] MEDS: LORazepam 0.5 MG TAB PO SCH ×2 (10:19→20:41)
[2022-04-16] MEDS: SERTRALINE HCL 50 MG TAB PO SCH (10:20)
[2022-04-16] MEDS: ENOXAPARIN 30MG/0.3ML SYRINGE (J1650 PER 10MG) SC SCH (10:20)
[2022-04-16] MEDS: RAMELTEON 8 MG TAB (ROZEREM) PO SCH (20:41)
[2022-04-17] MEDS ORDERED: AMPHETAMINE/DEXTROAMPHETAMINE 5 MG *ER* CAPSULE (ADDERALL XR) PO SCH (09:00)
[2022-04-17] MEDS ORDERED: NICOTINE 21MG/24HR 1 EA TRANSDERMAL TD SCH (09:00)
[2022-04-17] MEDS: LORazepam 0.5 MG TAB PO SCH (09:40)
[2022-04-17] MEDS: PANTOPRAZOLE 40MG TAB (PROTONIX) PO SCH (09:40)
[2022-04-17] MEDS: SERTRALINE HCL 50 MG TAB PO SCH (09:41)
[2022-04-17] MEDS: ENOXAPARIN 30MG/0.3ML SYRINGE (J1650 PER 10MG) SC SCH (09:44)
[2022-04-17] MEDS: ALBUTEROL SULFATE 2.5 MG/0.5 ML INH NEB SOLN NEB SCH ×2 (09:44→12:00)
[2022-04-17] MEDS ORDERED: ADDERALL 5 MG TAB PO SCH (12:00)
[2022-04-17] MEDS ORDERED: LORazepam 0.5 MG TAB PO PRN (16:05)
[2022-04-17] MEDS ORDERED: MOM 30ML SUSPENSION UDC PO PRN (16:05)
[2022-04-17] MEDS ORDERED: IBUPROFEN 400MG TAB PO PRN (16:05)
[2022-04-17] MEDS ORDERED: MAALOX 30 ML SUSP *UDC PO PRN (16:05)
[2022-04-17] MEDS ORDERED: traZODone 50 MG TAB PO PRN (16:05)
[2022-04-17 18:01] VITALS: BP 106/60
[2022-04-17] MEDS ORDERED: RAMELTEON 8 MG TAB (ROZEREM) PO SCH (21:00)
[2022-04-18] MEDS ORDERED: SERTRALINE HCL 50 MG TAB PO SCH (09:00)
== END 2022-04-17 18:03 | disposition home or self-care (01) | DRG 918 ==
LOC: M ED 16:16 → EDBD 16:16 → M ED INP 21:51
PROVIDERS: ADMIT Internal Medicine; ATTEND Internal Medicine
DX: T40.2X2A Poisoning by other opioids, intentional self-harm, initial encounter (principal); F33.2 Major depressive disorder, recurrent severe without psychotic features; T39.312A Poisoning by propionic acid derivatives, intentional self-harm, initial encounter; T42.8X2A Poisoning by antiparkinsonism drugs and other central muscle-tone depressants, intentional self-harm, initial encounter; I73.00 Raynaud's syndrome without gangrene; M54.9 Dorsalgia, unspecified; F90.9 Attention-deficit hyperactivity disorder, unspecified type; F43.10 Post-traumatic stress disorder, unspecified; J45.20 Mild intermittent asthma, uncomplicated; G89.29 Other chronic pain; F41.1 Generalized anxiety disorder; E66.9 Obesity, unspecified; Z68.35 Body mass index [BMI] 35.0-35.9, adult; Z81.8 Family history of other mental and behavioral disorders; Z79.891 Long term (current) use of opiate analgesic; Z88.6 Allergy status to analgesic agent

== ENCOUNTER 2022-04-24 11:23 | Inpatient (IN) | payer MEDICARE, MEDICAID ==
[~2022-04-24] VITALS: Ht 149.9 cm; Wt 79.1 kg
[~2022-04-24 11:23] MED LIST changes: +ACET300T48 PO; +ALBU2.5V10 INH; +NEBUMIS2; +PANT40TA29 PO; +[UNRECOGNIZED DRUG - OTHER]
[2022-04-24 14:39] LABS: HEMATOCRIT 44.3 % (36.0-47.0); HEMOGLOBIN 14.3 g/dl (12.0-15.5); MEAN CORPUSCULAR HEMOGLOBIN 30.6 pg (27.0-33.0); MEAN CORPUSCULAR HGB CONC 32.3 g/dl (32.0-36.5); MEAN CORPUSCULAR VOLUME 94.7 fl (80.0-96.0); PLATELET COUNT, AUTOMATED 347 10^3/uL (150-450); RED BLOOD COUNT 4.68 10^6/uL (4.00-5.40)
[2022-04-24 15:01] LABS: RSV AMPLIFICATION NEGATIVE (NEGATIVE)
[2022-04-24 15:10] LABS: AMPHETAMINES LEVEL URINE NEGATIVE (NEGATIVE); BARBITURATES URINE NEGATIVE (NEGATIVE); BENZODIAZEPINES URINE NEGATIVE (NEGATIVE); CANNABINOIDS URINE NEGATIVE (NEGATIVE); COCAINE METABOLITE URINE NEGATIVE (NEGATIVE); METHADONE URINE NEGATIVE (NEGATIVE); OPIATES URINE NEGATIVE (NEGATIVE); PHENCYCLIDINE URINE NEGATIVE (NEGATIVE)
[2022-04-24 15:20] LABS: ACETAMINOPHEN LEVEL < 2.0 UG/ML (10.0-30.0); ALBUMIN 3.5 GM/DL (3.2-5.2); ALT/SGPT 22 U/L (12-78); BILIRUBIN,DIRECT 0.2 MG/DL (0.0-0.2); BILIRUBIN,TOTAL 0.4 MG/DL (0.2-1.0); BLOOD UREA NITROGEN 8 MG/DL (7-18); CALCIUM LEVEL 9.5 MG/DL (8.5-10.1); CARBON DIOXIDE LEVEL 30 MEQ/L (21-32); CHLORIDE LEVEL 106 MEQ/L (98-107); CREATININE FOR GFR 0.64 MG/DL (0.55-1.30); ETHYL ALCOHOL (ETHANOL) < 0.003 % (0.000-0.010); GLOMERULAR FILTRATION RATE > 60.0 (>60); GLUCOSE, FASTING 91 MG/DL (70-100); POTASSIUM SERUM 4.5 MEQ/L (3.5-5.1); SALICYLATE LEVEL < 1.7 MG/DL (5.0-30.0); SODIUM LEVEL 140 MEQ/L (136-145); TOTAL PROTEIN 7.1 GM/DL (6.4-8.2)
[2022-04-24] MEDS ORDERED: ACET300T48 PO (20:13)
[2022-04-24] MEDS ORDERED: PANT40TA29 PO (20:13)
[2022-04-24] MEDS ORDERED: AMPH1CAP5 PO (20:13)
[2022-04-24] MEDS ORDERED: AMPH1CAP16 PO (20:13)
[2022-04-24] MEDS ORDERED: ALBU2.5V10 INH (20:13)
[2022-04-24] MEDS ORDERED: SERT50TA29 PO (20:13)
[2022-04-24] MEDS ORDERED: AMLO2.5T3 PO (20:13)
[2022-04-24] MEDS ORDERED: TIZA2TA PO (20:13)
[2022-04-24] MEDS ORDERED: HOME MED LIST COMPLETE! XX SCH (20:15)
[2022-04-24] MEDS ORDERED: ACETAMINOPHEN TAB 650MG DOSE (2X325MG) PO ONE (22:05)
[2022-04-25] MEDS ORDERED: LORazepam 1 MG TAB PO PRN (21:15)
[2022-04-25] MEDS ORDERED: MAALOX 30 ML SUSP *UDC PO PRN (21:15)
[2022-04-25] MEDS ORDERED: MOM 30ML SUSPENSION UDC PO PRN (21:15)
[2022-04-25] MEDS ORDERED: traZODone 50 MG TAB PO PRN (21:15)
[2022-04-25] MEDS ORDERED: ACETAMINOPHEN TAB 650MG DOSE (2X325MG) PO PRN (21:15)
[2022-04-26 04:36] VITALS: BP 127/89
[2022-04-26] MEDS: PANTOPRAZOLE 40MG TAB (PROTONIX) PO SCH (09:22)
[2022-04-26 16:32] VITALS: BP 125/62
[2022-04-26] MEDS: RAMELTEON 8 MG TAB (ROZEREM) PO SCH (20:26)
[2022-04-27 06:23] VITALS: BP 114/56
[2022-04-27] MEDS: SERTRALINE HCL 25 MG TABLET PO SCH (09:07)
[2022-04-27] MEDS: PANTOPRAZOLE 40MG TAB (PROTONIX) PO SCH (09:07)
[2022-04-27 16:48] VITALS: BP 121/69
[2022-04-27] MEDS: RAMELTEON 8 MG TAB (ROZEREM) PO SCH (20:41)
[2022-04-28 06:15] VITALS: BP 137/73
[2022-04-28] MEDS: SERTRALINE HCL 25 MG TABLET PO SCH (08:15)
[2022-04-28] MEDS: PANTOPRAZOLE 40MG TAB (PROTONIX) PO SCH (08:15)
[2022-04-28] MEDS ORDERED: traZODone 50 MG TAB PO PRN (15:05)
[2022-04-28 18:21] VITALS: BP 139/95
[2022-04-29 06:45] VITALS: BP 123/65
[2022-04-29] MEDS: PANTOPRAZOLE 40MG TAB (PROTONIX) PO SCH (08:07)
[2022-04-29 08:08] VITALS: BP 123/65
[2022-04-29] MEDS: SERTRALINE HCL 25 MG TABLET PO SCH (08:08)
[2022-04-29] MEDS ORDERED: TRAZ-252 PO (11:40)
[2022-04-29] MEDS ORDERED: SERT25TA21 PO (11:40)
== END 2022-04-29 15:10 | disposition home or self-care (01) | DRG 885 ==
LOC: M ED 11:23 → M ED INP 04-25 21:13 → M PSY 04-26 03:50
PROVIDERS: ADMIT Psychiatry & Neurology Psychiatry; ATTEND Psychiatry & Neurology Psychiatry
DX: F33.2 Major depressive disorder, recurrent severe without psychotic features (principal); F43.10 Post-traumatic stress disorder, unspecified; G47.00 Insomnia, unspecified; F41.1 Generalized anxiety disorder; Z79.899 Other long term (current) drug therapy; Z88.6 Allergy status to analgesic agent; Z91.51 Personal history of suicidal behavior

== ENCOUNTER 2022-10-09 13:38 | Emergency (ER) | payer MEDICARE, MEDICAID ==
[~2022-10-09] VITALS: Ht 149.9 cm; Wt 82.3 kg
[~2022-10-09 13:38] MED LIST changes: +AMLO2.5T3 PO; +AMPH1CAP16 PO; +AMPH1CAP5 PO; +SERT25TA21 PO; +SERT50TA29 PO; +TIZA2TA PO; +TRAZ-252 PO
[2022-10-09 15:48] LABS: BASO % 0.3 % (0.0-1.0); EOS # 0.2 10^3/uL (0.0-0.5); HEMATOCRIT 45.1 % (36.0-47.0); HEMOGLOBIN 14.4 g/dl (12.0-15.5); LYMPH # 0.4 10^3/uL (1.5-5.0); LYMPH % 5.7 % (24.0-44.0); MEAN CORPUSCULAR HEMOGLOBIN 29.3 pg (27.0-33.0); MEAN CORPUSCULAR HGB CONC 31.9 g/dl (32.0-36.5); MEAN CORPUSCULAR VOLUME 91.7 fl (80.0-96.0); MONO # 0.7 10^3/uL (0.0-0.8); MONO % 10.8 % (2.0-8.0); NEUTROPHILS % 79.7 % (36.0-66.0); PLATELET COUNT, AUTOMATED 242 10^3/uL (150-450); RED BLOOD COUNT 4.92 10^6/uL (4.00-5.40); WHITE BLOOD COUNT 6.3 10^3/uL (4.0-10.0)
[2022-10-09 16:11] LABS: ALBUMIN 3.7 G/DL (3.2-5.2); ALKALINE PHOSPHATASE 91 U/L (46-116); ALT/SGPT 21 U/L (7.0-40); AST/SGOT 19 U/L (<34); BILIRUBIN,DIRECT 0.2 MG/DL (<0.4); BILIRUBIN,TOTAL 0.5 MG/DL (0.3-1.2); BLOOD UREA NITROGEN 7 MG/DL (9-23); CALCIUM LEVEL 9.4 MG/DL (8.5-10.1); CARBON DIOXIDE LEVEL 23 MMOL/L (20-31); CHLORIDE LEVEL 104 MMOL/L (98-107); GLOMERULAR FILTRATION RATE > 60.0 (>60); GLUCOSE, FASTING 85 MG/DL (60-100); POTASSIUM SERUM 3.9 MMOL/L (3.5-5.1); SODIUM LEVEL 137 MMOL/L (136-145); TOTAL PROTEIN 7.1 G/DL (5.7-8.2)
[2022-10-09] MEDS: COMBIVENT RESPIMAT 100-20MCG INHALER 4GM INH SCH ×3 (16:14→16:53)
[2022-10-09] MEDS ORDERED: VENTAER PO (16:47)
[2022-10-09] MEDS ORDERED: TRAZ-252 PO (16:47)
[2022-10-09] MEDS ORDERED: AMPH1CAP16 PO (16:49)
[2022-10-09] MEDS ORDERED: SERT25TA21 PO (16:50)
[2022-10-09] MEDS ORDERED: CYAN1000VL SC (16:50)
[2022-10-09] MEDS ORDERED: HOME MED LIST COMPLETE! XX SCH (16:55)
[2022-10-09 17:08] VITALS: O2SAT 93
[2022-10-09] MEDS ORDERED: NIRMATRELVIR/RITONAVIR CO-PACK (EMERGENCY USE AUTH) PO SCH ×2 (18:00→21:00)
[2022-10-09] MEDS ORDERED: IPRA0.00 NEB (18:19)
[2022-10-09] MEDS ORDERED: DEXA6TAB PO (18:19)
[2022-10-09 18:44] VITALS: BP 162/78
== END 2022-10-09 18:47 | disposition home or self-care (01) ==
LOC: M ED 13:38
DX: U07.1 COVID-19 (principal); J45.909 Unspecified asthma, uncomplicated; I73.00 Raynaud's syndrome without gangrene; Z88.8 Allergy status to other drugs, medicaments and biological substances; Z86.69 Personal history of other diseases of the nervous system and sense organs

== ENCOUNTER → 2022-12-22 | Outpatient (REF) | payer MEDICARE, MEDICAID ==
[~2022-12-22] MED LIST changes: +CYAN1000VL SC; +DEXA6TAB PO; +IPRA0.00 NEB; +VENTAER PO
== END ==
LOC: M SFHCWAGY 13:20
PROVIDERS: ATTEND Obstetrics & Gynecology
DX: Z12.4 Encounter for screening for malignant neoplasm of cervix (principal)

== ENCOUNTER → 2023-02-24 | Outpatient (CLI) | payer MEDICARE, MEDICAID ==
[2023-02-24 13:00] LABS: HEMATOCRIT 45.8 % (36.0-47.0); HEMOGLOBIN 14.6 g/dl (12.0-15.5); MEAN CORPUSCULAR HEMOGLOBIN 29.5 pg (27.0-33.0); MEAN CORPUSCULAR HGB CONC 31.9 g/dl (32.0-36.5); MEAN CORPUSCULAR VOLUME 92.5 fl (80.0-96.0); PLATELET COUNT, AUTOMATED 388 10^3/uL (150-450); RED BLOOD COUNT 4.95 10^6/uL (4.00-5.40); WHITE BLOOD COUNT 8.4 10^3/uL (4.0-10.0)
== END ==
LOC: M PLALAB 10:18
PROVIDERS: ATTEND Obstetrics & Gynecology
DX: N93.9 Abnormal uterine and vaginal bleeding, unspecified (principal)

== ENCOUNTER → 2023-02-24 | Outpatient (CLI) | payer MEDICARE, MEDICAID | LOC: M WHC 08:39 | PROVIDERS: ATTEND Obstetrics & Gynecology | DX: Z12.31 Encounter for screening mammogram for malignant neoplasm of breast (principal); N93.9 Abnormal uterine and vaginal bleeding, unspecified; N83.291 Other ovarian cyst, right side; Z79.899 Other long term (current) drug therapy ==

== ENCOUNTER → 2023-06-17 | Outpatient (REF) | payer MEDICARE, MEDICAID | LOC: M SFHCWAGY 18:02 | PROVIDERS: ATTEND Obstetrics & Gynecology | DX: N93.9 Abnormal uterine and vaginal bleeding, unspecified (principal) ==

== ENCOUNTER 2023-10-05 05:58 | Day surgery (SDC) | payer MEDICARE, MEDICAID ==
[~2023-10-05] VITALS: Ht 147.3 cm; Wt 85.2 kg
[~2023-10-05 05:58] MED LIST changes: +SERT-141 PO
[2023-10-05] MEDS ORDERED: LR 1,000 ML IV SCH ×2 (06:00→06:40)
[2023-10-05 06:35] LABS: HEMATOCRIT 43.8 % (36.0-47.0); MEAN CORPUSCULAR HEMOGLOBIN 29.9 pg (27.0-33.0); MEAN CORPUSCULAR VOLUME 93.6 fl (80.0-96.0); PLATELET COUNT, AUTOMATED 337 10^3/uL (150-450); RED BLOOD COUNT 4.68 10^6/uL (4.00-5.40); WHITE BLOOD COUNT 6.9 10^3/uL (4.0-10.0)
[2023-10-05] MEDS ORDERED: ALBUTEROL SULFATE 2.5MG/0.5ML INH NEB SOLN INH PRN (06:40)
[2023-10-05] MEDS ORDERED: propofoL 200 MG/20 ML VIAL As Ordered ONE (07:16)
[2023-10-05] MEDS ORDERED: fentaNYL 100 MCG/2 ML INJECTION As Ordered ONE (07:16)
[2023-10-05] MEDS ORDERED: MIDAZOLAM INJ 2MG/2ML VIAL As Ordered ONE (07:16)
[2023-10-05] MEDS ORDERED: ROCURONIUM BROMIDE 50MG/5ML VIAL As Ordered ONE (07:19)
[2023-10-05] MEDS ORDERED: LIDOCAINE 2% 100MG/5ML SDV (FOR ANES.) As Ordered ONE (07:19)
[2023-10-05] MEDS ORDERED: ONDANSETRON 4MG 2ML VIAL As Ordered ONE (07:21)
[2023-10-05] MEDS ORDERED: dexmedeTOMIDine (4MCG/ML)200MCG/50ML BTL (PRECEDEX) As Ordered ONE (07:22)
[2023-10-05] MEDS: ceFAZolin 2 GM/D5W 50 ML IV BAG As Ordered ONE (07:46)
[2023-10-05] MEDS: SCOPOLAMINE 1MG TRANSDERMAL PATCH As Ordered ONE (07:46)
[2023-10-05] MEDS ORDERED: ACETAMINOPHEN 1000MG 100ML IV BAG As Ordered ONE (08:14)
[2023-10-05] MEDS: ceFAZolin SOD 2 GM in IV 1 EA IV ONE (08:20)
[2023-10-05] MEDS ORDERED: SUGAMMADEX SODIUM 500 MG/5 ML VIAL (BRIDION) As Ordered ONE (08:25)
[2023-10-05] MEDS: DOCUSATE SODIUM 100MG CAPSULE PO SCH (09:00)
[2023-10-05] MEDS: METHYLENE BLUE 0.5% (5MG/ML) 10 ML AMP (PROVAYBLUE) As Ordered ONE (09:24)
[2023-10-05] MEDS ORDERED: GLYCOPYRROLATE INJ 0.2 MG/ML 2 ML VIAL As Ordered ONE (10:01)
[2023-10-05] MEDS ORDERED: ePHEDrine SULFATE 25 MG/5 ML(5MG/ML) SYRINGE As Ordered ONE (10:02)
[2023-10-05] MEDS ORDERED: PROMETHAZINE 25MG/ML 1ML VIAL IV PRN (10:25)
[2023-10-05] MEDS ORDERED: ONDANSETRON 4MG 2ML VIAL IV PRN (10:25)
[2023-10-05] MEDS ORDERED: PERCOCET 5MG/325MG TAB PO PRN ×2 (10:25)
[2023-10-05] MEDS ORDERED: COLA100C5 PO (10:29)
[2023-10-05] MEDS ORDERED: PERCOCET PO (10:29)
[2023-10-05] MEDS ORDERED: MORPHINE 2 MG/ML 1ML VIAL IV PRN (10:35)
[2023-10-05] MEDS ORDERED: METOCLOPRAMIDE INJ 10MG/2ML VIAL IV PRN (10:35)
[2023-10-05] MEDS ORDERED: diphenhydrAMINE 50MG/ML VIAL IV PRN (10:35)
[2023-10-05] MEDS: KETOROLAC 30 MG/ML 1ML VIAL IV SCH (10:58)
[2023-10-05] MEDS: ONDANSETRON 4MG 2ML VIAL IV PRN (10:59)
[2023-10-05] MEDS: MEPERIDINE 25 MG/ML 1ML VIAL IV PRN (10:59)
[2023-10-05] MEDS: fentaNYL 100 MCG/2 ML INJECTION IV PRN (11:02)
[2023-10-05] MEDS: oxyCODONE 5MG TAB PO PRN (11:46)
[2023-10-05 12:48] VITALS: BP 114/57; TEMP 97.5; O2SAT 94
[2023-10-05 13:20] VITALS: BP 110/57; TEMP 97.1; O2SAT 92
[2023-10-05] MEDS: LR 1,000 ML IV SCH (13:20)
[2023-10-05 13:55] VITALS: BP 104/50; TEMP 97; O2SAT 95
[2023-10-05] MEDS: MORPHINE 4 MG/ML 1ML VIAL IV PRN (14:01)
[2023-10-05 14:55] VITALS: BP 119/55; TEMP 98; O2SAT 97
[2023-10-05 15:55] VITALS: BP 116/67; TEMP 97.4; O2SAT 97
[2023-10-05 16:56] VITALS: BP 114/61; TEMP 98.2; O2SAT 96
[2023-10-05] MEDS ORDERED: SLF 3 ML SYR IV PRN (17:30)
[2023-10-05] MEDS ORDERED: SLF 3 ML SYR IV SCH (22:00)
== END 2023-10-05 19:10 | disposition home or self-care (01) ==
LOC: M SDC 05:58 → M RR INP 05:59 → UNDOADMOB 05:59 → M PED 12:45 → M RR INP 12:45 → UNDODISOB 19:10
PROVIDERS: ATTEND Obstetrics & Gynecology
DX: N80.03 Adenomyosis of the uterus (principal); D25.2 Subserosal leiomyoma of uterus; N93.9 Abnormal uterine and vaginal bleeding, unspecified; N73.6 Female pelvic peritoneal adhesions (postinfective); R10.2 Pelvic and perineal pain; J45.909 Unspecified asthma, uncomplicated; Z79.899 Other long term (current) drug therapy; E66.9 Obesity, unspecified; Z68.39 Body mass index [BMI] 39.0-39.9, adult
CPT/HCPCS: 36415; 58571; 81025; 85027; 86850; 86900; 86901; 88307; J0131; J0665; J0690; J1100; J1885; J2175; J2250; J2405; J3010; Q9968

== ENCOUNTER → 2024-10-18 | Outpatient (REF) | payer MEDICARE, MEDICAID ==
[~2024-10-18] MED LIST changes: +COLA100C5 PO
[2024-10-18 13:28] LABS: BASO % 0.2 % (0.0-1.0); EOS # 0.3 10^3/uL (0.0-0.5); EOS % 3.7 % (0.0-3.0); HEMOGLOBIN 16.1 g/dl (12.0-15.5); LYMPH # 2.6 10^3/uL (1.5-5.0); LYMPH % 30.4 % (24.0-44.0); MEAN CORPUSCULAR HEMOGLOBIN 30.1 pg (27.0-33.0); MEAN CORPUSCULAR HGB CONC 32.2 g/dl (32.0-36.5); MEAN CORPUSCULAR VOLUME 93.5 fl (80.0-96.0); MONO # 0.9 10^3/uL (0.0-0.8); MONO % 10.7 % (2.0-8.0); NEUTROPHILS # 4.6 10^3/uL (1.5-8.5); NEUTROPHILS % 54.8 % (36.0-66.0); PLATELET COUNT, AUTOMATED 387 10^3/uL (150-450); RED BLOOD COUNT 5.35 10^6/uL (4.00-5.40); WHITE BLOOD COUNT 8.5 10^3/uL (4.0-10.0)
[2024-10-18 13:53] LABS: THYROID STIMULATING HORMONE 3.165 uIU/ML (0.55-4.78)
[2024-10-18 13:56] LABS: ALBUMIN 3.8 G/DL (3.2-5.2); ALKALINE PHOSPHATASE 100 U/L (35-104); ALT/SGPT 14 U/L (7.0-40); AST/SGOT 11 U/L (<34); BILIRUBIN,TOTAL 0.5 MG/DL (0.3-1.2); BLOOD UREA NITROGEN 7 MG/DL (9-23); CALCIUM LEVEL 10.4 MG/DL (8.5-10.1); CARBON DIOXIDE LEVEL 28 MMOL/L (20-31); CHLORIDE LEVEL 105 MMOL/L (98-107); CHOLESTEROL LEVEL 201 MG/DL (<200); CREATININE FOR GFR 0.68 MG/DL (0.55-1.30); GLOMERULAR FILTRATION RATE > 60.0 (>58); GLUCOSE, FASTING 95 MG/DL (60-100); HDL CHOLESTEROL 47.8 MG/DL (>40); LDL CHOLESTEROL 123.2 MG/DL (<100); NON-HDL-C 153.2 MG/DL; POTASSIUM SERUM 4.9 MMOL/L (3.5-5.1); SODIUM LEVEL 142 MMOL/L (136-145); TOTAL PROTEIN 7.5 G/DL (5.7-8.2); TRIGLYCERIDES LEVEL 150 MG/DL (<150)
== END ==
LOC: M SFHCADAM 09:53
PROVIDERS: ATTEND Physician Assistant Medical
DX: Z00.00 Encounter for general adult medical examination without abnormal findings (principal); E66.01 Morbid (severe) obesity due to excess calories; J45.20 Mild intermittent asthma, uncomplicated; F33.2 Major depressive disorder, recurrent severe without psychotic features; F41.1 Generalized anxiety disorder

== ENCOUNTER 2025-05-12 19:05 | Emergency (ER) | payer MEDICARE, MEDICAID ==
[~2025-05-12] VITALS: Ht 149.9 cm; Wt 82.7 kg
[2025-05-12] MEDS ORDERED: LURA120T (19:33)
[2025-05-12] MEDS ORDERED: ONDA-83 (19:33)
[2025-05-12] MEDS ORDERED: LAMO150T3 (19:33)
[2025-05-12] MEDS ORDERED: LISD70CA (19:33)
[2025-05-12] MEDS ORDERED: TRAZ-257 (19:33)
[2025-05-12] MEDS ORDERED: CLON0.5T2 (19:33)
[2025-05-12] MEDS ORDERED: ATOM25CA7 (19:33)
[2025-05-12 20:05] LABS: BASO # 0.0 10^3/uL (0.0-0.2); BASO % 0.3 % (0.0-1.0); EOS # 0.1 10^3/uL (0.0-0.5); EOS % 0.8 % (0.0-3.0); LYMPH # 2.1 10^3/uL (1.5-5.0); LYMPH % 14.7 % (24.0-44.0); MONO # 1.0 10^3/uL (0.0-0.8); MONO % 7.0 % (2.0-8.0); NEUTROPHILS # 11.2 10^3/uL (1.5-8.5); NEUTROPHILS % 76.7 % (36.0-66.0); PLATELET COUNT, AUTOMATED 316 10^3/uL (150-450)
[2025-05-12 20:30] LABS: ETHYL ALCOHOL (ETHANOL) < 0.003 % (0.000-0.010)
[2025-05-12 20:31] LABS: SALICYLATE LEVEL < 3.0 MG/DL (<30)
[2025-05-12 20:32] LABS: ALT/SGPT 24 U/L (7.0-40); AST/SGOT 25 U/L (<34); CALCIUM LEVEL 10.9 MG/DL (8.5-10.1); CARBON DIOXIDE LEVEL 23 MMOL/L (20-31); CHLORIDE LEVEL 101 MMOL/L (98-107); CREATININE FOR GFR 0.77 MG/DL (0.55-1.30); GLOMERULAR FILTRATION RATE > 90.0 (>58); POTASSIUM SERUM 3.8 MMOL/L (3.5-5.1); SODIUM LEVEL 139 MMOL/L (136-145)
[2025-05-12 20:35] LABS: CPK CREATINE PHOSPHOKINASE 132 U/L (34-145)
[2025-05-12 20:47] LABS: MAGNESIUM LEVEL 2.1 MG/DL (1.8-2.4)
[2025-05-12] MEDS: MAG SULF 1GM/100ML (MAG RUN) 1 GM in IV 1 EA IV SCH (21:04)
[2025-05-12 22:01] LABS: FREE T4 1.37 NG/DL (0.89-1.76)
[2025-05-13 01:28] LABS: BARBITURATES URINE NEGATIVE (NEGATIVE)
[2025-05-13 01:29] LABS: BENZODIAZEPINES URINE NEGATIVE (NEGATIVE); CANNABINOIDS URINE NEGATIVE (NEGATIVE); COCAINE METABOLITE URINE NEGATIVE (NEGATIVE); METHADONE URINE NEGATIVE (NEGATIVE); OPIATES URINE NEGATIVE (NEGATIVE); PHENCYCLIDINE URINE NEGATIVE (NEGATIVE)
[2025-05-13 01:30] LABS: AMPHETAMINES LEVEL URINE POSITIVE (NEGATIVE)
[2025-05-13 03:31] VITALS: BP 101/55; TEMP 97.8; O2SAT 96
== END 2025-05-13 03:40 | disposition home or self-care (01) ==
LOC: M ED 19:05
DX: T43.291A Poisoning by other antidepressants, accidental (unintentional), initial encounter (principal); I45.81 Long QT syndrome; J45.909 Unspecified asthma, uncomplicated; J44.9 Chronic obstructive pulmonary disease, unspecified; F90.9 Attention-deficit hyperactivity disorder, unspecified type; F12.10 Cannabis abuse, uncomplicated; Z88.6 Allergy status to analgesic agent; Z79.51 Long term (current) use of inhaled steroids; Z79.899 Other long term (current) drug therapy
CPT/HCPCS: 36415; 80048; 80076; 80143; 80307; 82077; 82550; 83735; 84439; 84443; 85025; 93005; 93041; 94760; 96374; 99285; J3475